=== PATIENT | male | born 1940 | race Caucasian/White ===

== ENCOUNTER 2016-10-02 02:21 | Emergency (ER) | payer BC, MEDICARE ==
--- NOTE | 2016-10-02 02:33 | ED ---
Millicent Pabon Michael, scribed for Robert Sullivan MD on 10/02/16 at 0228 . Adult Trauma - HPI Summary HPI Summary: 76 y/o male was BIBA to the ED after a mechanical fall tonight. The pt reports that he slipped while trying to sit back down in his chair. He c/o neck pain and arrived to the ED in a C-collar. He rates his pain a 2 out of 10 on a pain severity scale. The pt denies LOC. - History of Current Complaint Stated Complaint: NECK PAIN Hx Obtained From: Patient, EMS, Medical Records Mechanism of Injury: Fall Loss of Consciousness: no loss of consciousness Onset/Duration: Started Minutes Ago Onset of Pain: Immediate Onset Severity: Mild Current Severity: Mild Pain Intensity: 2 Pain Scale Used: 0-10 Numeric Location: Neck Aggravating Factor(s): Nothing Alleviating Factor(s): Nothing Associated Signs & Symptoms: Positive: Other: - neck pain. Negative: Loss of Consciousness - Allergy/Home Medications Allergies/Adverse Reactions: Allergies Allergy/AdvReac Type Severity Reaction Status Date / Time Erythromycin Allergy Nausea Verified 10/02/16 02:41 PMH/Surg Hx/FS Hx/Imm Hx Endocrine/Hematology History: Denies: Hx Diabetes Cardiovascular History: Reports: Hx Hypercholesterolemia, Hx Hypertension Denies: Hx Angina, Hx Coronary Artery Disease, Hx Myocardial Infarction, Hx Pacemaker/ICD, Hx Valvular Heart Disease Respiratory History: Denies: Hx Asthma, Hx Chronic Obstructive Pulmonary Disease (COPD) History: Denies: Hx Renal Disease Sensory History: Reports: Hx Hearing Aid - DOESN'T WEAR ALL THE TIME Psychiatric History: Denies: Hx Panic Disorder - Family History Known Family History: Positive: Cardiac Disease - Social History Occupation: Retired Lives: With Family Alcohol Use: Rare Substance Use Type: Reports: None Smoking Status (MU): Never Smoked Tobacco Review of Systems Negative: Fever Positive: Other - neck pain Negative: Syncope All Other Systems Reviewed And Are Negative: Yes Physical Exam Triage Information Reviewed: Yes Vital Signs Reviewed: Yes Appearance: Positive: No Pain Distress Skin: Positive: Warm Head/Face: Positive: Normal Head/Face Inspection Eyes: Positive: MARIA INES ENT: Positive: Hearing grossly normal Neck: Positive: Supple, Nontender Respiratory/Lung Sounds: Positive: Breath Sounds Present Cardiovascular: Positive: RRR Abdomen Description: Positive: Nontender, Soft Bowel Sounds: Positive: Present Neurological: Positive: Alert, Oriented to Person Place, Time Psychiatric: Positive: Affect/Mood Appropriate Diagnostics - Laboratory Result Diagrams: 10/02/16 03:30 10/02/16 03:30 Lab Statement: Any lab studies that have been ordered have been reviewed, and results considered in the medical decision making process. - CT Cervical Spine CT CT Interpretation: No Acute Changes CT Interpretation Completed By: Radiologist - EKG EKG 0303 EKG Rhythm: Sinus Rhythm Ectopy: PVCs EKG Interpretation: LBBB Re-Evaluation - Re-Evaluation 1st Re-Evaluation Time: 03:15 Change: Unchanged Second Eval Re-Evaluation Time: 04:50 - results d/w pt and family, recommend f/u pcp Change: Improved Adult Trauma Course/Dx - Diagnoses Provider Diagnoses: Neck pain Discharge - Discharge Plan Condition: Stable Disposition: HOME Patient Education Materials: Neck Pain (ED) Referrals: Alo Boo MD [Primary Care Provider] - Additional Instructions: You will follow up with Dr. Boo within the next 3-4 days. Please return to the ED if your symptoms worsen. The documentation as recorded by the Millicent thomas Michael accurately reflects the service I personally performed and the decisions made by me, Robert Sullivan MD.
[2016-10-02 03:41] LABS: Hematocrit 48 % (42-52); Hemoglobin 16.2 g/dl (14.0-18.0); Mean Corpuscular HGB Conc 34 g/dl (31-36); Mean Corpuscular Hemoglobin 31 pg (27-31); Mean Corpuscular Volume 91 fL (80-94); Mean Platelet Volume 11 um3 (7.4-10.4); Red Blood Count 5.31 10^6/ul (4.0-5.4); Red Cell Distribution Width 15 % (10.5-15); White Blood Count 10.4 10^3/ul (3.5-10.8)
[2016-10-02 03:43] LABS: Comments Flag Yes
[2016-10-02 03:44] LABS: Add Diff/Slide Review? Slide Review Added
[2016-10-02 03:52] LABS: BUN/Creatinine Ratio 22.9 (8-20); Calcium 9.6 mg/dL (8.6-10.3); EGFR African American 88.6 (>60); EGFR Non-African American 68.9 (>60)
[2016-10-02 04:12] LABS: Magnesium 2.4 mg/dL (1.9-2.7); Potassium 4.3 mmol/L (3.5-5.0)
[2016-10-02 04:57] VITALS: BP 194/90
--- NOTE | 2016-10-02 07:40 | RAD ---
HISTORY: Fall, neck pain COMPARISONS: MRI of the cervical spine dated March 12, 2015 TECHNIQUE: Multiple contiguous axial CT scans were obtained of the cervical spine without intravenous contrast, with coronal and sagittal multiplanar reformations. FINDINGS: BRAIN: The visualized brain is unremarkable CENTRAL CANAL: Evaluation of the central canal is limited on CT technique; however, there is no obvious canalicular mass or epidural hemorrhage. ALIGNMENT: There is straightening of the cervical lordosis. VERTEBRAL BODIES: There is multilevel anterolateral marginal osteophyte formation with sclerotic reactive end plate changes. There is no displaced fracture. JOINTS: There is extensive facet and uncovertebral osteoarthritic change. There is osteoarthritis of the atlantoaxial articulation. MUSCULATURE: Unremarkable INTERVERTEBRAL DISCS: There is diffuse loss of intervertebral disc height. AXIAL IMAGES: C2-C3: There is no osseous neural foraminal narrowing or central canal stenosis. C3-C4: There is severe right-sided and mild left-sided neuroforaminal narrowing secondary to uncovertebral and facet hypertrophy. There is no osseous central canal stenosis. C4-C5: There is bilateral uncovertebral and facet hypertrophy. There is moderate bilateral neuroforaminal narrowing. There is no osseous central canal stenosis. C5-C6: There is a central posterior osteophyte with bilateral uncovertebral facet hypertrophy. There is severe bilateral neural foraminal narrowing. There is moderate narrowing of the central canal. C6-C7: There is a broad-based disc osteophyte complex with bilateral uncovertebral and facet hypertrophy. There is severe bilateral neural foraminal narrowing. There is moderate narrowing of the central canal. C7-T1: There is no osseous neural foraminal narrowing or central canal stenosis. SOFT TISSUES: The visualized soft tissues of the neck are unremarkable. The prevertebral fat stripe is preserved. OTHER: None. IMPRESSION: 1. DEGENERATIVE DISC DISEASE AND OSTEOARTHRITIS. 2. THERE IS MODERATE NARROWING OF THE CENTRAL CANAL AT C5-C6 AND C6-C7. 3. THERE IS MULTILEVEL NEURAL FORAMINAL NARROWING DESCRIBED ABOVE. 4. NO ACUTE OSSEOUS INJURY TO THE CERVICAL SPINE
--- NOTE | 2016-10-02 07:41 | RAD ---
HISTORY: Chest pain COMPARISONS: None VIEWS: 2: Frontal dual-energy and lateral views of the chest. FINDINGS: CARDIOMEDIASTINAL SILHOUETTE: The cardiomediastinal silhouette is normal. [place]: The federica are normal. PLEURA: The costophrenic angles are sharp. No pleural abnormalities are noted. LUNG PARENCHYMA: There is hyperinflation with flattening of the diaphragm and expansion of the AP diameter of the chest. ABDOMEN: The upper abdomen is clear. There is no subphrenic gas. BONES AND SOFT TISSUES: Degenerative changes are noted along the spine. OTHER: None. IMPRESSION: HYPERINFLATION, CONSISTENT WITH COPD. NO ACTIVE CARDIOPULMONARY DISEASE.
== END 2016-10-02 04:39 | disposition home or self-care (01) ==
LOC: ED 02:21
DX: M54.2 Cervicalgia (principal); M50.30 Other cervical disc degeneration, unspecified cervical region
CPT/HCPCS: 36415; 71020; 72125; 80048; 83735; 85025; 93005; 99283

== ENCOUNTER 2016-10-05 13:15 | Inpatient (IN) | payer BC, MEDICARE ==
[2016-10-05 14:22] LABS: Hematocrit 49 % (42-52); Hemoglobin 16.2 g/dl (14.0-18.0); Mean Corpuscular HGB Conc 33 g/dl (31-36); Mean Corpuscular Hemoglobin 30 pg (27-31); Mean Corpuscular Volume 91 fL (80-94); Mean Platelet Volume 11 um3 (7.4-10.4); Red Blood Count 5.34 10^6/ul (4.0-5.4); Red Cell Distribution Width 14 % (10.5-15); White Blood Count 11.1 10^3/ul (3.5-10.8)
[2016-10-05 14:37] LABS: BUN/Creatinine Ratio 23.4 (8-20); Calcium 9.9 mg/dL (8.6-10.3); EGFR African American 86.6 (>60); EGFR Non-African American 67.4 (>60); Globulin 4.3 g/dL (2-4); Magnesium 2.4 mg/dL (1.9-2.7); Potassium 4.1 mmol/L (3.5-5.0); Total Bilirubin 0.6 mg/dL (0.2-1.0); Total Protein 8.3 g/dL (6.4-8.9)
[2016-10-05 14:39] LABS: Troponin I 0.04 ng/mL (<0.04)
--- NOTE | 2016-10-05 14:58 | RAD ---
HISTORY: Weakness, diplopia, inability to walk COMPARISONS: October 02, 2016 VIEWS: 2: Frontal dual-energy and lateral views of the chest. FINDINGS: CARDIOMEDIASTINAL SILHOUETTE: The cardiomediastinal silhouette is normal. [place]: The federica are normal. PLEURA: The costophrenic angles are sharp. No pleural abnormalities are noted. LUNG PARENCHYMA: There is hyperinflation with flattening of the diaphragm and expansion of the AP diameter of the chest. ABDOMEN: The upper abdomen is clear. There is no subphrenic gas. BONES AND SOFT TISSUES: Degenerative changes are noted along the spine. OTHER: None. IMPRESSION: HYPERINFLATION. NO ACTIVE CARDIOPULMONARY DISEASE.
--- NOTE | 2016-10-05 15:10 | ED ---
Francisco Javier Pabon Adam, scribed for Malinda Null MD on 10/05/16 at 1346 . Neurological HPI - HPI Summary HPI Summary: 76 yo male arrived to ED by EMS. complaining of double vision beginning on Monday. Pt with progressive generalized weakness and now using walker. He was here on 10/02 after falling due to difficulty walking and balancing. He received CAT scan of neck and chest X-Ray, but did not have anything fractured, and was discharged. Since then, pt has had difficulty walking and with balance, double vision, and has been using a walker beginning three days ago. His legs and arms feel weak, but no numbness or tingling reported. Additionally, he has neck and shoulder pain after movement. no fevers, chills. Pt states approx 2 weeks ago had 48 hours of nausea and vomiting. This has resolved and not recurred. Pt has been urinating every 15-20 minutes, but feels as if he is emptying his bladder, despite not drinking too much water. Pt denies diarrhea, fever, rashes, nausea, or headache. No bowel incontinence. Pt was at his PCP office and sent to ED for further eval. He has had prostate problems for the past five years and is follwed by Dr. Arroyo. Pt is not on medications. 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 He is not on any medications, no PMHx for stroke or [place], no kidney problems. No SHx, non smoker, non drinker, no drug use. 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 - History of Current Complaint Chief Complaint: EDWeakness Stated Complaint: WEAKNESS Time Seen by Provider: 10/05/16 13:38 Hx Obtained From: Patient, Family/Charge Entry Specialist, Other: - PCP - called from office Onset/Duration: Started days ago Timing: Constant Onset Severity: Moderate Current Severity: Moderate Pain Intensity: 0 Character: Weak - Generalized Weakness, Visual Changes - double vision Alleviating: Rest, Lying Down Associated Signs and Symptoms: Positive: Unsteady Gait, Visual Changes - Double vision with both eyes open. Normal vision in each individual eye., Weakness, Dizziness, Incontinent Bladder/Bowel - Urinates frequently (every 15-30 minutes) , Decreased Oral Intake. Negative: Headache, Numbness, Nausea/Vomiting, Fever, Diarrhea - Allergy/Home Medications Allergies/Adverse Reactions: Allergies Allergy/AdvReac Type Severity Reaction Status Date / Time Erythromycin Allergy Nausea Verified 10/02/16 02:41 Home Medications: Home Medications Aspirin [Aspirtab Maximum Strength] 500 mg PO DAILY 10/05/16 [History Confirmed 10/05/16] PMH/Surg Hx/FS Hx/Imm Hx Previously Healthy: Yes Endocrine/Hematology History: Denies: Hx Anticoagulant Therapy, Hx Diabetes Cardiovascular History: Reports: Hx Hypercholesterolemia, Hx Hypertension Denies: Hx Angina, Hx Coronary Artery Disease, Hx Myocardial Infarction, Hx Pacemaker/ICD, Hx Valvular Heart Disease Respiratory History: Denies: Hx Asthma, Hx Chronic Obstructive Pulmonary Disease (COPD) History: Denies: Hx Renal Disease Sensory History: Reports: Hx Hearing Aid - DOESN'T WEAR ALL THE TIME Psychiatric History: Denies: Hx Panic Disorder - Immunization History Date of Tetanus Vaccine: unk Date of Influenza Vaccine: fall 2015 Infectious Disease History: No Infectious Disease History: Denies: Traveled Outside the [place] in Last 30 Days - Family History Known Family History: Positive: Cardiac Disease - Social History 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 Normal vision in each individual eye. ENT: Negative Cardiovascular: Negative Negative: Chest Pain Respiratory: Negative Negative: Shortness Of Breath, Cough Gastrointestinal: Negative Negative: Diarrhea, Nausea Genitourinary: Negative Positive: frequency - urinating every 15-30 minutes Positive: Myalgia - neck and shoulder pain Negative: Rash Positive: Weakness. Negative: Headache Psychological: Normal All Other Systems Reviewed And Are Negative: Yes Physical Exam Triage Information Reviewed: Yes Vital Signs On Initial Exam: Initial Vitals Temp Pulse Resp BP Pulse Ox 98.4 F 82 18 214/112 95 10/05/16 13:20 10/05/16 13:20 10/05/16 13:20 10/05/16 13:20 10/05/16 13:20 Vital Signs Reviewed: Yes Appearance: Positive: Well-Appearing, No Pain Distress, Well-Nourished Skin: Positive: Warm, Skin Color Reflects Adequate Perfusion, Dry Head/Face: Positive: Normal Head/Face Inspection Eyes: Positive: Normal, EOMI, MARIA INES ENT: Positive: Pharynx normal, TMs normal Neck: Positive: Supple, Nontender, No Lymphadenopathy. Negative: Nuchal Rigidity Respiratory/Lung Sounds: Positive: Clear to Auscultation, Breath Sounds Present. Negative: Rales, Wheezes Cardiovascular: Positive: Normal, RRR. Negative: Murmur Abdomen Description: Positive: Nontender, No Organomegaly, Soft Bowel Sounds: Positive: Present Musculoskeletal: Positive: Normal, Strength/ROM Intact Neurological: Positive: Normal, Sensory/Motor Intact, Alert, Oriented to Person Place, Time Psychiatric: Positive: Normal AVPU Assessment: Alert - [place] Coma Scale Best Eye Response: 4 - Spontaneous Best Motor Response: 6 - Obeys Commands Best Verbal Response: 5 - Oriented Diagnostics - Vital Signs Vital Signs Temp Pulse Resp BP Pulse Ox 10/05/16 13:20 98.4 F 82 18 214/112 95 - Laboratory Lab Results: Lab Results 10/05/16 10/05/16 10/05/16 Range/Units 14:00 14:00 14:00 WBC 11.1 H (3.5-10.8) 10^3/ul RBC 5.34 (4.0-5.4) 10^6/ul Hgb 16.2 (14.0-18.0) g/dl Hct 49 (42-52) % MCV 91 (80-94) fL MCH 30 (27-31) pg MCHC 33 (31-36) g/dl RDW 14 (10.5-15) % Plt Count 157 (150-450) 10^3/ul MPV 11 H (7.4-10.4) um3 Neut % (Auto) 76.0 (38-83) % Lymph % (Auto) 15.7 L (25-47) % [place] % (Auto) 6.2 (1-9) % Eos % (Auto) 0.8 (0-6) % Baso % (Auto) 1.3 (0-2) % Absolute Neuts (auto) 8.5 H (1.5-7.7) 10^3/ul Absolute Lymphs (auto) 1.8 (1.0-4.8) 10^3/ul Absolute Monos (auto) 0.7 (0-0.8) 10^3/ul Absolute Eos (auto) 0.1 (0-0.6) 10^3/ul Absolute Basos (auto) 0.1 (0-0.2) 10^3/ul Absolute Nucleated RBC 0.01 10^3/ul Nucleated RBC % 0.1 Sodium 137 (133-145) mmol/L Potassium 4.1 (3.5-5.0) mmol/L Chloride 103 (101-111) mmol/L Carbon Dioxide 26 (22-32) mmol/L Anion Gap 8 (2-11) mmol/L BUN 25 H (6-24) mg/dL Creatinine 1.07 (0.67-1.17) mg/dL Est GFR ( Amer) 86.6 (>60) Est GFR (Non-Af Amer) 67.4 (>60) BUN/Creatinine Ratio 23.4 H (8-20) Glucose 100 (70-100) mg/dL Lactic Acid 1.3 (0.5-2.0) mmol/L Calcium 9.9 (8.6-10.3) mg/dL Magnesium 2.4 (1.9-2.7) mg/dL Total Bilirubin 0.60 (0.2-1.0) mg/dL AST 32 (13-39) U/L ALT 48 (7-52) U/L Alkaline Phosphatase 56 (34-104) U/L Total Creatine Kinase 50 (10-223) U/L Troponin I 0.04 H* (<0.04) ng/mL Total Protein 8.3 (6.4-8.9) g/dL Albumin 4.0 (3.2-5.2) g/dL Globulin 4.3 H (2-4) g/dL Albumin/Globulin Ratio 0.9 L (1-3) Result Diagrams: 10/06/16 04:46 10/06/16 04:46 Lab Statement: Any lab studies that have been ordered have been reviewed, and results considered in the medical decision making process. - Radiology CXR Radiology Interpretation Completed By: Radiologist - HYPERINFLATION. NO ACTIVE CARDIOPULMONARY DISEASE. - CT BRAIN CT Interpretation Completed By: Radiologist - IMPRESSION: Chronic ischemic White matter change. Lacunar infarct right basal ganglia. - EKG 16:37 Cardiac Rate: NL - 85 BPM EKG Rhythm: Sinus Rhythm - normal Ectopy: PVCs EKG Interpretation: LBBB. 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/Release Non-Paretic Hand: Both Correctly Best Gaze (Only Horizontal Eye Movement): Normal Visual Field Testing: No Visual Loss Facial Paresis-Pt to Smile & Close Eyes or Grimace Symmetry: Normal/Symmetrical Motor Function - Right Arm: No Drift-Holds 10 Seconds Motor Function - Left Arm: No Drift-Holds 10 Seconds Motor Function - Right Leg: No Drift-Holds 10 Seconds Motor Function - Left Leg: No Drift-Holds 10 Seconds Limb Ataxia-Must be out of Proportion to Weakness Present: Absent Sensory (Use Pinprick to Test Arms/Legs/Trunk/Face): Normal Best Language (Describe Picture, Name Items): No Aphasia Dysarthria (Read Several Words): Normal Extinction and Inattention: No Abnormality Total Score: 0 Re-Evaluation - Re-Evaluation First Eval Change: Improved - pt states feels improved s/p yariel (1800 ml) reviewed labs and imaging with pt and . Will admit for further testing and evalution. Pt BP had improved, again increased. Will give labetolol d/w Dr. Feldman Course/Dx - Course Assessment/Plan: Pt presents with progressive weakness and inability to walk, episode of vision changes. Pt with a fall approx 10 days ago. Pt noted to be hypertensive Pt also with frequent urination. doff includes ICH, CVA, CA, CAD, electrolyte changes, UTI. Will get CT head, CXR, urinalysis, ekg, labs. Pt will likely require admission. pt and in agreement - Diagnoses Provider Diagnoses: Urinary retention, Elevated troponin, Weakness, Hypertensive urgency - Physician Notifications Discussed Care of Patient With: 1800 - Dr Feldman accepting inpt Instructed by Provider To: Admit As Inpatient Discharge - Discharge Plan Condition: Stable Disposition: ADMITTED TO [facility] documentation as recorded by the Francisco Javier thomas Adam accurately reflects the service I personally performed and the decisions made by me, Malinda Null MD.
--- NOTE | 2016-10-05 15:12 | RAD ---
Indication: Weakness, diplopia. CT of the brain was performed without IV contrast. Ventricular structures are midline. No midline shift is noted. Central and cortical atrophy is noted. There is no evidence of intracranial mass or hemorrhage. Periventricular lucency consistent with chronic ischemic White matter change is noted. Lacunar infarct in the right basal ganglia is noted. IMPRESSION: Chronic ischemic White matter change. Lacunar infarct right basal ganglia.
[2016-10-05] MEDS ORDERED: Aspirin TAB* 325 MG PO ONE (16:37)
[2016-10-05 17:04] LABS: Urine Bacteria Absent (Absent); Urine Bilirubin Negative (Negative); Urine Glucose Negative (Negative); Urine Nitrite Negative (Negative)
[2016-10-05] MEDS ORDERED: Labetalol IV* 5 MG/ML 20 ML VIAL IV PUSH ONE (17:26)
[2016-10-05] MEDS ORDERED: Acetaminophen TAB* 325 MG PO PRN (18:41)
--- NOTE | 2016-10-05 19:53 | RAD ---
Indication: Right-sided weakness. Duplex Doppler sonography of the carotid arteries was performed. No prior study is available for comparison. Right common carotid artery demonstrates intimal wall thickening. Plaque is noted in the carotid bulb extending into the right internal carotid artery. Peak systolic velocity of the distal right common carotid artery is 72 cm/s. Peak systolic velocity of the right internal carotid artery is 194 cm/s. The ICA/CC ratio is 2.71. Right vertebral artery demonstrates antegrade flow. Left common carotid artery demonstrates no intimal wall thickening. Peak systolic velocity of the distal left common carotid artery is 90 cm/s. Peak systolic velocity of the left internal carotid artery is 156 cm/s. ICA/CC ratio is 1.7. Left vertebral artery demonstrates antegrade flow. IMPRESSION: 50-69% stenosis of both internal carotid arteries.
--- NOTE | 2016-10-05 21:04 | CONSULT ---
Consult Consult: 10/05/16 neurology consult 76 yo RHM, presenting with a panoply of symptoms in the past 10 days or so. About 2 weeks ago he had 2 days of emesis without diarrhea; he presumed this was food poisoning; there was reduced po intake for several more days. He subsequently noted, in no specific order: - Blurry vision denies prasanna diplopia for me (apparently others had elicited such a history), denies ptosis, bulbar or respiratory issues; would read by closing right eye (unclear why, as self eye cover uncover testing did not help) - Decreased hearing on left - if sleeping right side down - Decreased touch right foot - only noted when was touching his feet - Diffuse bilateral arm and more so leg weakness, mostly noted due to decreased exercise tolerance - He had no specific bowel or bladder complaints, but then said the [place] made him feel better - His suggests slurred speech; he did not endorse this himself per se He was in the ED 3 days ago for a mechanical fall; had imaging as below and was discharged. He has used a cane in the past year, but until a few weeks ago was walking mi per day. He was seen by neurosurgery in 2014 for leg weakness and/or numbness noted after a fall, had allan spine imaging as below, and was conservatively managed, best I can tell with no clear diagnosis. 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 , no etoh or tobacco use ROS 10 point review as per HPI, otherwise negative Vitals per emr general Examination: no apparent distress, trace pitting foot edema, male of stated age; sal[place] in place; redundant eyelid folds Neurologic Examination Mental Status: alert and oriented; affect reactive, no clear neglect, fluent speech Cranial Nerves: Funduscopy deferred, otherwise II-XII intact; león full to confrontation; PERRL, no ptosis or diplopia, EOM full; eye closure, cheek puff and lip closure intact Motor: normal bulk, tone and power; neck flexors intact; no fatiguable weakness ; no drift or tremor Sensory: touch intact; vibration ? decreased right foot only Reflexes: 2 arms and knees; ankles absent. Plantar responses are equivocal/ rapid withdrawal right vs flexor left Coordination: finger to nose is accurate Gait: deferred Serologies: - CBC, chem, lactate, LFTs, ua are all normal or negative - Priors: ESR, iron studies, A1AT, CEA, HCG, Lyme, CMV, HBV/HCV (all in 2013) were all nl/neg Imaging: - Head CT reviewed and negative (age indeterminate and likely remote R basal ganglia lacune) - CUS 50-69% bilateral stenosis - 09/[address] neg fracture; has multi level djd - 02/25 allan spine mri had moderate C5-7 stenosis (penty of csf all way around on my review); L4-5 stenosis; tiny low cervical central syrinx (vs dilated canal to my review) Cxr neg (CT chest 1999 neg as well) Impression: 76 year old presenting with variegated and as a whole not well localizing symptoms, including blurry vision, diffuse weakness vs fatigue, ? speech changes , etc., noted after a GI likely viral ailment 2 weeks ago. His neuro exam is non localizing save questionable right foot sensory asymmetry; he has no hard lateralizing or UMN findings, nor any neuromuscular findings to support an acute PNS process that could explain some of his concerns (eg myasthenia, Carreon Almendarez variant GBS). His symptoms may reflect bland deconditioning in an older and overweight patient. His CT, CUS (modest sub surgical stenosis) and recent cervical and more remote allan spine imaging are all non localizing. I found him in the MRI scanner, in the midst of workup at the behest of the med team for [employer] vascular disease. It is unclear that he has had a stroke, or where to localize his concerns as a whole. We will complete this workup; it may likely be negative and serve a reassuring function, as both he and his are already referring to various symptoms as stroke induced. Additionally, lets send AchR Ab to eval for MG, which could cause visual and diffuse or symmetric motor symptoms, albeit none reproducible.
--- NOTE | 2016-10-05 21:10 | HP ---
HOSPITAL MEDICINE HISTORY AND PHYSICAL: DATE OF ADMISSION: 10/05/16 PRIMARY CARE PHYSICIAN: Dr. Boo. ATTENDING PHYSICIAN: Sree Null MD *(dictation provided by Nessa Landon NP) . CHIEF COMPLAINT: Generalized weakness, double vision, and urinary retention. HISTORY OF PRESENT ILLNESS: Mr. Kamara is a 76-year-old male with a past medical history of BPH and hypertension, who presents today with multiple complaints. He and his report that he first became ill on 09/21/16 with vomiting that lasted approximately 2-1/2 days. There was no diarrhea. There was no other symptoms and it was suspected that likely he had gastroenteritis or food poisoning. The vomiting resolved spontaneously after approximately 2-1/ 2 days; however, the patient has not returned to his baseline health. Prior to this, he had been ambulating at least half a mile a day for exercise. Since 03/30, he has been very weak. He has had poor appetite. On 09/26/16, the patient's obtained a walker for him because he was having some difficulty getting around. It was at that time that they first noticed that he had some speech impairment with a little bit of slurring. He also complained of some double vision. He was seen in our emergency room on 10/02/16 after falling at home. He had imaging studies including CT of the neck and a chest x- ray, but there was no fracture or injury identified and he was discharged to home. He does have continued pain in his neck and in his left shoulder since the fall. In the setting of this, he had been noting that he has been urinating frequently but had been feeling that he was not completely emptying his bladder. Though he has felt weak, he denies any numbness or tingling. There seemed to be no focal weakness. His son felt that there was some nasolabial fold flattening noted on the right. Throughout the course of the illness, there has been no fevers, no chills, no abdominal pain, no diarrhea. Mr. Kamara reports that approximately 2 years ago that he had an episode where he collapsed and "couldn't move his legs." He was seen in consultation by Neurology and during that time he had workup including a lumbar spine MRI, cervical spine MRI, and thoracic spine MRI that showed no acute abnormality. Per the report from the patient and his , it was felt that his symptoms were due to an abnormal walking pattern in which he was leaning heavily on to his right side, perhaps causing some pinching of nerves in the back and thereby leading to further difficulty walking. I would have to refer you to that documentation from the neurologist's office for complete details as that is all that could be provided by the family today. In the emergency room, Mr. Kamara had a CT of the brain, which showed a right lacunar basal ganglia infarct. His labs showed WBC of 11.1, troponin 0.04, but were otherwise unremarkable. His flu swab was negative. His chest x-ray was negative. EKG showed sinus rhythm with no evidence of ischemia. Based on Mr. Kamara' presentation with multiple complaints including double vision, weakness, urinary retention (now status post Fisher placement for 2 L of urine output) and new strokes found on CT of brain, Hospital Medicine was called regarding admission. PAST MEDICAL HISTORY: 1. BPH. 2. Hypertension. MEDICATIONS: The patient states that he had been prescribed amlodipine but went off this 2 years ago secondary to side effects, lethargy, and nausea. He has not been on any prescription medications. ALLERGIES: To ERYTHROMYCIN. FAMILY HISTORY: Mother at 99 related to breast cancer. Father related to pacemaker complications in his 60s. SOCIAL HISTORY: No report of alcohol, tobacco, or drug use. The patient lives with his . She is his healthcare proxy. REVIEW OF SYSTEMS: A 14-point review of systems was completed with Mr. Kamara and all those not mentioned above are negative. PHYSICAL EXAMINATION GENERAL: Mr. Kamara is sitting in the bed. He shows discomfort and will not turn his head to the left, which he says has been a problem for him since he fell approximately 3 days ago. VITAL SIGNS: Blood pressure 186/138, heart rate 89, temperature 98.4, respiratory rate 19, O2 saturation 95% on room air. ABDOMEN: Soft, nontender with bowel sounds positive x4. EXTREMITIES: There is some question of a left pronator drift; however, both right and left upper extremities are strong. He has good strength in both right and left lower extremities. No cyanosis or edema. NEUROLOGIC: He is alert. He is oriented x3. He has some slurring of his speech, which the family and the patient report is new. His pupils are equal and reactive. His right eye seems to remain closed. Unless coaxed and given direct command to open, this eye will remain closed on examination. I am not really able to appreciate a nasolabial fold flattening. The patient does have a higgins. SKIN: Intact. DIAGNOSTIC STUDIES/LAB DATA: Influenza swab is negative. WBC 11.1, hemoglobin 16.2, hematocrit 49, platelet count 157. Sodium 137, potassium 4.1, chloride 103, serum bicarbonate 26, BUN 25, creatinine 1.07, glucose 100, lactic acid 1.3, troponin 0.04. Urine shows no evidence of infection. CT of brain shows a lacunar infarct of the right basal ganglia. Chest x-ray is negative. ASSESSMENT: Mr. Kamara is a 76-year-old male with past medical history of hypertension, benign prostatic hypertrophy, who presents today to the hospital with multiple complaints including weakness, diplopia, and urinary retention. Our plan is for inpatient admission to the hospital, I expect his length of stay to be greater than 2 days with the followin. Urinary retention: The patient has had a Fisher placed in the emergency room for 2 L of urine output. I counseled the family that the patient will need to go home with a Fisher catheter and follow up with Urology outpatient. 2. Weakness, double vision, slurred speech: The patient's symptoms are not entirely consistent with stroke. Plans are for Neurology consultation and I appreciate their support. The patient will have a brain MRI. I have ordered a stroke workup including carotid ultrasound, transthoracic echocardiogram, telemetry monitoring, aspirin, fasting lipid profile, hemoglobin A1c. I plan to allow for permissive hypertension, but will treat the blood pressure greater than 185 until the concern for acute stroke is allayed. 3. Hypertension: The patient states that he is not taking blood pressure medications at home and I suspect that his blood pressure is quite uncontrolled. For now, I plan to use hydralazine p.r.n. but will need to add alternate agents likely starting by tomorrow orally. 4. DVT prophylaxis: Heparin subcu. 5. Disposition: To telemetry. TIME SPENT: Approximately 70 minutes was spent in the admission of this patient , more than half of the time was spent with the patient at the bedside reviewing the events leading up to this hospitalization, performing the physical examination, and reviewing the plan of care. NESSA LANDON NP CC: Dr. Boo * [id number]/[facility] #: [id number] UMER
--- NOTE | 2016-10-05 21:41 | RAD ---
Indication: Stroke. Image sequences: Sagittal and axial T1, axial T2, FLAIR, diffusion and susceptibility weighted images of the brain were obtained. Due to patient positioning of the typical head coil could not be used and there is signal loss in the anterior brain. Ventricular structures are midline. No midline shift is noted. The extra-axial spaces are prominent. There is restriction of diffusion involving the right cerebellar peduncle as well as multiple areas in the right cerebellar hemisphere consistent with acute infarct. No other areas of restriction of diffusion is noted. No midline shift is noted. Paranasal sinuses are otherwise unremarkable. Mastoid air cells are unremarkable. IMPRESSION: Restriction of diffusion in the right brainstem in the right cerebellar peduncle, multiple acute lacunar infarcts in the right cerebellar hemisphere. Age-appropriate atrophy.
[2016-10-05] MEDS: Heparin VIAL(*) 5000 UNITS/ML VIAL (FIVE THOUSAND) SUBCUT SCH (22:16)
[2016-10-06] MEDS: Heparin VIAL(*) 5000 UNITS/ML VIAL (FIVE THOUSAND) SUBCUT SCH ×3 (05:04→20:57)
[2016-10-06 05:25] LABS: Hematocrit 46 % (42-52); Hemoglobin 15.5 g/dl (14.0-18.0); Mean Corpuscular HGB Conc 34 g/dl (31-36); Mean Corpuscular Hemoglobin 31 pg (27-31); Mean Corpuscular Volume 91 fL (80-94); Mean Platelet Volume 11 um3 (7.4-10.4); Red Blood Count 5.08 10^6/ul (4.0-5.4); Red Cell Distribution Width 14 % (10.5-15); White Blood Count 11.5 10^3/ul (3.5-10.8)
[2016-10-06 05:35] LABS: BUN/Creatinine Ratio 24.8 (8-20); Calcium 9.4 mg/dL (8.6-10.3); EGFR African American 92.6 (>60); Potassium 3.8 mmol/L (3.5-5.0)
[2016-10-06] MEDS ORDERED: Iohexol 350* (CONTRAST) 500 ML MDV IV ONE (08:40)
[2016-10-06 08:42] LABS: HDL Cholesterol 26.1 mg/dL
[2016-10-06] MEDS ORDERED: Aspirin TAB* 325 MG PO SCH (09:00)
--- NOTE | 2016-10-06 10:00 | PN ---
Progress Note - Progress Note SOAP: 10/06/16 neurology follow up 76 yo RHM, HTN, HL (no meds), on full ASA baseline, presenting with a number of symptoms in the past 10 plus days, including resolved isolated emesis, blurry vision, decreased hearing (but per notes has hearing aides), decreased touch right foot, diffuse weakness, slurred speech; some of these were more evident to his in review yest. Overnight, no events. This am he brings up yet other more subacute symptoms eg 3-4 weeks ago transiently impaired and isolated depth perception issues. Exam with intact strength, right toe ? up, mild R finger nose finger dysmetria; transient side by side diplopia on far left lateral gaze, without clear eye movement restriction or dyscongugate gaze, and just several beats of left horizontal nystagmus. Not ambulated; saldivar in place. Mri reviewed and has late acute (dark on adc but can see on T2/FLAIR as well) several foci of right cerebellar stroke, as well as a region in the right cerebellar peduncle. No blood. Supratentorially just modest expected for age white matter disease. Chem ok; wbc stable at 11; aic neg; LDL 133 Impression: 76 year old with several vascular risk factors (likely unctreated HTN and HL), presenting with multiple subacute symptoms as above; his imaging may correlate with some of his symptoms (eg slurred speech, possibly visual symptoms) but other concerns may be true true unrelated (eg diffusely feeling weak and antecedent isolated emesis was more likely viral ailment related). We can defer on MG lab testing. Although the management of his small strokes will likely be medical, the plan is for: 1. CTA head and neck with attention to right vert and PICA 2. TTE with bubble study 3. tele 4. Presuming ASA failure, transition to Plavix, unless workup finds a rationale for anticoag 5. start statin 6. d/w dr Gutierrez
--- NOTE | 2016-10-06 11:46 | RAD ---
HISTORY: Posterior sacculation stroke COMPARISONS: MRI dated October 05, 2016 TECHNIQUE: Multiple contiguous axial CT scans were obtained of the head and neck After the administration of nonionic intravenous contrast timed to the systemic arterial phase of contrast enhancement. Coronal and sagittal multiplanar reformations are submitted for review. Multiple 3-D maximum intensity projection reconstructions are also submitted for review. FINDINGS: CTA NECK: AORTIC ARCH: There is calcific atherosclerotic disease of the aortic arch. There is moderate stenosis of the proximal left subclavian artery.. There is a normal three-vessel branching pattern. RIGHT VERTEBRAL ARTERY: The right vertebral artery is patent along its course, without stenosis. LEFT VERTEBRAL ARTERY: There is irregularity with decreased luminal caliber of the proximal left vertebral artery extending to the V3-V4 junction, with occlusion of the distal left vertebral artery DOMINANCE: The right vertebral artery is dominant. RIGHT COMMON CAROTID ARTERY: The right common carotid artery is patent. The right carotid bifurcation occurs at C3-C4 RIGHT INTERNAL CAROTID ARTERY: There is calcified and noncalcified eccentric atherosclerotic plaque of the proximal right internal carotid artery, resulting in approximately 70% stenosis of the right internal carotid artery by NASCET criteria. The cervical right internal carotid artery is tortuous. RIGHT EXTERNAL CAROTID ARTERY: The right external carotid artery is unremarkable. LEFT COMMON CAROTID ARTERY: The left common carotid artery is patent. The left carotid bifurcation occurs at C3-C4 LEFT INTERNAL CAROTID ARTERY: There is atheromatous disease of the left carotid bifurcation, without left internal carotid artery stenosis by NASCET criteria. LEFT EXTERNAL CAROTID ARTERY: The left external carotid artery is unremarkable. VENOUS CIRCULATION: The venous system is unremarkable. SALIVARY GLANDS: The parotid glands, submandibular glands, sublingual glands are normal. NASAL CAVITY/NASOPHARYNX: The nasal cavity and nasopharynx are normal. ORAL CAVITY/OROPHARYNX: The oral cavity is obscured by streak artifact from dental amalgam. The visualized oral cavity and oropharynx are unremarkable. LARYNGEAL APPARATUS/HYPOPHARYNX: The laryngeal apparatus and hypopharynx are normal. UPPER AIRWAY/UPPER ESOPHAGUS: The visualized upper airway and esophagus are normal. LUNG APICES: The lung apices are clear. THYROID GLAND: The thyroid gland is normal. LYMPH NODES: There is no lymphadenopathy by size criteria. BONES AND SOFT TISSUES: Degenerative changes are noted of the spine CTA HEAD: INTRACRANIAL CIRCULATION: There is mural irregularity of the cavernous segments of internal carotid arteries bilaterally. There is mild narrowing of the mid third of the basilar artery. The distal left vertebral artery is occluded as right above. The right posterior inferior cerebral artery is patent. The left posterior inferior cerebellar artery appears to be fed by the left anterior inferior cerebellar trunk The anterior communicating artery complex is clear. Bilateral posterior communicating arteries are identified. VENOUS CIRCULATION: The venous system is unremarkable. PERFUSION: There is no obvious parenchymal perfusion deficit. HEMORRHAGE/INFARCT: There is hypoattenuation of the base and corresponding to the infarct noted on CT. There is no hemorrhage. MASSES/SHIFT: There is no mass or shift. EXTRA-AXIAL SPACES: There are no extra-axial fluid collections. SULCI AND VENTRICLES: The sulci and ventricles are normal in size and position for the patient's stated age. CEREBRUM: There is hypoattenuation of the periventricular and subcortical white matter. BRAINSTEM: There is focal hypoattenuation of the right middle cerebellar peduncle corresponding to the infarct noted on CT. CEREBELLUM: There are no focal parenchymal abnormalities. PARANASAL SINUSES: The paranasal sinuses are clear. ORBITS: The orbits are unremarkable. BONES AND SOFT TISSUE: No bone or soft tissue abnormalities are noted. OTHER: There is no abnormal enhancement. IMPRESSION: 1. ATHEROMATOUS DISEASE. 2. THERE IS APPROXIMATELY 70% STENOSIS OF THE PROXIMAL RIGHT INTERNAL CAROTID ARTERY BY NASCET CRITERIA. 3. THERE IS NO LEFT INTERNAL CAROTID ARTERY STENOSIS BY NASCET CRITERIA. 4. THERE IS DIFFUSE NARROWING OF THE CALIBER OF LEFT RENAL ARTERY, WITH OCCLUSION OF THE DISTAL LEFT VERTEBRAL ARTERY. 5. THERE IS MURAL IRREGULARITY OF THE INTRACRANIAL ARTERIAL TREE SUGGESTIVE OF INTRACRANIAL ATHEROSCLEROSIS. THERE IS MILD NARROWING OF THE MID THIRD OF THE BASILAR ARTERY CPT II Codes: 3100F
[2016-10-06] MEDS: hydrALAZINE IV* 20 MG/ML VIAL IV SLOW PU PRN (12:05)
--- NOTE | 2016-10-06 12:52 | RAD ---
STUDY: CT angiography of the chest, abdomen and pelvis. INDICATION: Reduced left upper extremity blood pressure at relative to the right in a patient recently diagnosed with CVA COMPARISON: Carotid ultrasound dated October 05, 2016 that demonstrates questionable bidirectional flow in the right vertebral artery. TECHNIQUE: Multidetector CT angiography of the chest, abdomen and pelvis were obtained from the lung apices to the ischial tuberosities after the intravenous injection of 100 mL Omnipaque 350. Reformats were created in the coronal and sagittal planes. 3-D vascular imaging was created from the source images and reviewed as well. ANGIOGRAPHIC FINDINGS: The heart is normal in size. There is no pericardial effusion. There is calcification at the aortic arch and coronary artery calcifications. There is no pathologic dilatation of the thoracic aorta. There is mostly noncalcified and circumferential atherosclerotic plaque of the proximal most portion of the right brachiocephalic artery but this does not appear to cause any significant stenosis. There is mostly noncalcified atherosclerosis at the proximal left subclavian artery causing at least 50% degree stenosis of the artery (axial image 32 of 302, coronal image 59 of 131 and sagittal image 101 of 194). The lower thoracic and abdominal aorta exhibits ectatic curvature and mixed attenuation circumferential atherosclerosis, but there is no significant focal aneurysmal dilatation or appearance of acute dissection. On the sagittal view images there is mild to moderate narrowing at the origin of the celiac trunk while the superior mesenteric artery appears to be adequately patent. The inferior mesenteric artery appears to be adequately patent as well. Mixed attenuation atherosclerosis narrows the origins of the main renal arteries to a mild to moderate degree. Mixed attenuation atherosclerosis of the lower abdominal aorta continues into the bilateral common iliac arteries where the mostly noncalcified atherosclerosis becomes more eccentric and appears to cause high-grade stenoses. The right common iliac artery (image 178) appears to be narrowed at least 50% while the left common iliac artery exhibits approximately 80% degree stenosis (image 180). Distal to these common iliac stenoses there is adequate filling of the bilateral external iliac arteries. There is mixed attenuation stenosis at the origin of the bilateral internal iliac arteries. Patency appears to be maintained. There is mixed attenuation atherosclerosis at the bilateral common femoral arteries but this does not appear to cause significant stenosis. At the proximal portion of the right superficial femoral artery eccentric soft plaque causes high-grade stenosis of the artery (image 254). NON ANGIOGRAPHIC FINDINGS: Chest: The lungs exhibit diffuse centrilobular emphysematous changes. Otherwise the lungs are clear. There are no large pleural effusions. There is no mediastinal or hilar lymphadenopathy. The heart is grossly normal in appearance. Abdomen \T\ Pelvis: The liver is homogenously hypodense without focal suspicious mass or other irregularity. The spleen, pancreas and adrenal glands are grossly normal in appearance. In the dependent portion of the gallbladder there is hyperdense material most likely representing stones. There is no evidence of biliary duct occlusion. The kidneys are normal in appearance without focal mass, calcification or signs of hydronephrosis. The renal cortices enhance promptly and symmetrically on arterial phase imaging. A Fisher catheter is seen in the mostly decompressed urinary bladder. This creates the appearance of decompression which is not considered a reliable the presence of a catheter. The small and large bowel are not distended. The appendix is normal in appearance (image 205). There is no gross retroperitoneal or mesenteric lymphadenopathy. Bilateral fat-containing inguinal hernias are noted. Scattered coarse calcifications are seen in the enlarged prostate measuring 5.4 x 7.1 cm in the axial plane. Similar to prior MRI imaging, there is mild S shaped curvature of the lower thoracic and lumbar spine in the AP view. On the sagittal view images there is multilevel degenerative changes include loss of intervertebral disc height, exuberant marginal osteophyte formation and lumbar level vacuum disc phenomenon.There are no sinister bone lesions. IMPRESSION: 1. Widespread mixed attenuation atherosclerosis as described in detail in the body of the report. The more severe and/or clinically relevant findings are as follows: * There is no evidence of pathologic aneurysmal dilatation of the aorta or acute aortic dissection. * There is concentric atheroma at the origin of the right brachiocephalic artery which does not cause any significant stenosis. * There is high-grade stenosis at the proximal left subclavian artery due to mostly noncalcified atheroma. This appearance would account for reduced blood pressure acquired in the left upper extremity relative to the right. Please correlate to signs and symptoms of subclavian steal syndrome. * Mostly noncalcified eccentric atheroma narrows the bilateral common iliac arteries approximately 50% on the right and up to 80% in the left. These correlate to signs and symptoms of pelvic and lower extremity claudication. * Focus of high-grade stenosis in the superior portion of the right superficial femoral artery which potentially could cause right lower extremity claudication. 2. Likely hepatic steatosis. 3. Appearance of thickened and nodular urinary bladder wall which is likely the consequence of decompression caused by the patient's Fisher catheter. Please correlate to any signs and symptoms of urinary bladder pathology including hematuria. 4. There are additional chronic and degenerative changes described in the body of the report.
[2016-10-06] MEDS: Clopidogrel TAB* 75 MG PO SCH (13:10)
--- NOTE | 2016-10-06 15:35 | PN ---
Progress Note - Progress Note SOAP: 10/06/16 neurology follow up - addendum 76 yo RHM, HTN, HL (no meds), on full ASA baseline, presenting with a number of symptoms as per prior notes, mri w/ several small R cerebellar strokes. CTA head and neck reviewed has some R ICA incidental stenosis in neck (rads estimates at 70% vs 50-69% per CUS yest); more importantly he is R vert dominant with an intact R vert and basilar; the L vert is quite small and irregular throughout its course (likely congenitally smaller plus atherosclerosis), with possible distal occlusion this is presumably asymptomatic as well, ie does not change med mgmt recs per note from this am. Echo pending. Primary team also obtained CTA chest, abd and pelvis after noting BP discrepancy between arms has various findings, with fatty liver and L subclavian stenosis. Will sign out to dr newman (starting call tmrw) to follow up other pending tests.[]
[2016-10-06] MEDS ORDERED: Perflutren Lipid Microsphere* 1.1 MG/ML VIAL IV ONE (16:00)
[2016-10-06] MEDS: Atorvastatin* 40 MG TAB PO SCH (16:30)
[2016-10-06] MEDS: amLODIPine TAB* 5 MG PO SCH (16:30)
--- NOTE | 2016-10-06 17:24 | PN ---
Subjective Date of Service: 10/06/16 Interval History: HOSPITALIST PROGRESS NOTE Patient seen and examined at bedside. He feels a little better today. Blurry vision is less intense, still feels he has some speech difficulties. He denies LUE claudication or other symptoms of subclavian steal. Also denies LE claudication, but did not walk long distances. Family History: Unchanged from Admission Social History: Unchanged from Admission Past Medical History: Unchanged from Admission Objective Active Medications: Acetaminophen (Tylenol Tab*) 650 mg PO Q6H PRN PRN Reason: PAIN Amlodipine Besylate (Norvasc Tab*) 2.5 mg PO DAILY [facility] Last Admin: 10/06/16 16:30 Dose: 2.5 mg Atorvastatin Calcium (Lipitor*) 40 mg PO 1700 [facility] Last Admin: 10/06/16 16:30 Dose: 40 mg Clopidogrel Bisulfate (Plavix Tab*) 75 mg PO DAILY [facility] Last Admin: 10/06/16 13:10 Dose: 75 mg Heparin Sodium (Porcine) (Heparin Vial(*)) 5,000 units SUBCUT Q8HR [facility] Last Admin: 10/06/16 13:10 Dose: 5,000 units Hydralazine HCl (Apresoline Iv*) 5 mg IV SLOW PU Q6H PRN PRN Reason: SBP > 185 Last Admin: 10/06/16 12:05 Dose: 5 mg Vital Signs 10/06/16 10/06/16 10/06/16 11:37 13:21 16:35 Temperature 98.2 F 98.3 F Pulse Rate 74 83 76 Respiratory 16 16 Rate Blood Pressure 194/93 173/85 179/88 (mmHg) O2 Sat by Pulse 96 96 Oximetry Oxygen Devices in Use Now: None Appearance: Pleasant elderly male sitting up in a chair in [facility]. Eyes: No Scleral Icterus Ears/Nose/Mouth/Throat: Mucous Membranes Moist Neck: Trachea Midline Respiratory: Symmetrical Chest Expansion and Respiratory Effort, Clear to Auscultation Cardiovascular: RRR - Normal S1 and S2 Neurological: Alert and Oriented x 3, NL Muscle Strength and Tone, - - Mild R finger to nose dysmetria Lines/Tubes/Other Access: Clean, Dry and Intact Peripheral IV Nutrition: Taking PO's Result Diagrams: 10/06/16 04:46 10/06/16 04:46 Assess/Plan/Problems-Billing Assessment: Mr. Kamara is a 76yo M with PMH of untreated HTN, obesity, BPH, who presented to ED with c/o weakness, slurred speech, blurry vision, found to have uncontrolled HTN and right cerebellar CVA. - Patient Problems (1) CVA (cerebral vascular accident) Comment: - MRI brain showed restriction of difusion on in the right brainstem in the right cerebellar pedunculum, multiple acute lacunar infarcts in the right cerebellar hemisphere. - He has multiple vascular risk factors including HTN and HLD. - CTA head/neck showed right ICA stenosis (incidental). Right vertebral and basilar are intact. - Echocardiogram pending. - No significant arrhythmias on Telemetry so far. - Neuro input appreciated - continue Plavix, Atorvastatin. - Continue Neuro checks. - Continue PT/OT/ST. 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 - Took lisinopril, HCTZ, amlodipine in the past and they were discontinued due to side effects (usually dizziness). Off treatment for 2 years. - Agrees to start low dose Amlodipine again. (3) Hyperlipidemia Comment: - LDL 133 - will start Atorvastatin. Risks and benefits reviewed with patient and and they're in agreement. (4) Subclavian artery stenosis, left Comment: - BP measured on right arm was significantly higher then on left. - CTA chest/abd/pelvis showed 50% stenosis on left subclavian - patient denies any symptoms related to it. - Study also showed bilateral iliac stenosis (50% on the right, 80% on the left) , but he also denies LE claudication. - D/w Dr. Trinh - plan for evaluation as outpatient. - Continue Plavix and Atorvastatin. (5) Urinary retention Comment: - Likely secondary to BPH. - Continue Fisher. - Start Flomax. (6) DVT prophylaxis Comment: - SQ heparin. (7) Full code status Status and Disposition: Inpatient.
[2016-10-06] MEDS: Tamsulosin CAP* 0.4 MG PO SCH (20:57)
[2016-10-07] MEDS: Heparin VIAL(*) 5000 UNITS/ML VIAL (FIVE THOUSAND) SUBCUT SCH ×3 (05:52→20:51)
[2016-10-07] MEDS: Clopidogrel TAB* 75 MG PO SCH (08:48)
[2016-10-07] MEDS: amLODIPine TAB* 5 MG PO SCH (08:48)
--- NOTE | 2016-10-07 12:14 | PN ---
Progress Note - Progress Note SOAP: Neurology progress note Date of service: 10/07/16 Subjective: No acute events overnight. The patient states he is in a very good spirit and feeling much better today. Still has diplopia Objective: Vital Signs Temp Pulse Resp BP Pulse Ox 97.9 F 81 16 164/86 94 10/07/16 11:28 10/07/16 11:28 10/07/16 11:28 10/07/16 11:28 10/07/16 11:28 Laboratory Last Values WBC 11.5 10^3/ul (3.5-10.8) H 10/06/16 04:46 RBC 5.08 10^6/ul (4.0-5.4) 10/06/16 04:46 Hgb 15.5 g/dl (14.0-18.0) 10/06/16 04:46 Hct 46 % (42-52) 10/06/16 04:46 MCV 91 fL (80-94) 10/06/16 04:46 MCH 31 pg (27-31) 10/06/16 04:46 MCHC 34 g/dl (31-36) 10/06/16 04:46 RDW 14 % (10.5-15) 10/06/16 04:46 Plt Count 147 10^3/ul (150-450) L 10/06/16 04:46 MPV 11 um3 (7.4-10.4) H 10/06/16 04:46 Neut % (Auto) 70.6 % (38-83) 10/06/16 04:46 Lymph % (Auto) 20.4 % (25-47) L 10/06/16 04:46 Blount % (Auto) 6.3 % (1-9) 10/06/16 04:46 Eos % (Auto) 1.5 % (0-6) 10/06/16 04:46 Baso % (Auto) 1.2 % (0-2) 10/06/16 04:46 Absolute Neuts (auto) 8.1 10^3/ul (1.5-7.7) H 10/06/16 04:46 Absolute Lymphs (auto) 2.4 10^3/ul (1.0-4.8) 10/06/16 04:46 Absolute Monos (auto) 0.7 10^3/ul (0-0.8) 10/06/16 04:46 Absolute Eos (auto) 0.2 10^3/ul (0-0.6) 10/06/16 04:46 Absolute Basos (auto) 0.1 10^3/ul (0-0.2) 10/06/16 04:46 Absolute Nucleated RBC 0 10^3/ul 10/06/16 04:46 Nucleated RBC % 0 10/06/16 04:46 Sodium 136 mmol/L (133-145) 10/06/16 04:46 Potassium 3.8 mmol/L (3.5-5.0) 10/06/16 04:46 Chloride 104 mmol/L (101-111) 10/06/16 04:46 Carbon Dioxide 26 mmol/L (22-32) 10/06/16 04:46 Anion Gap 6 mmol/L (2-11) 10/06/16 04:46 BUN 25 mg/dL (6-24) H 10/06/16 04:46 Creatinine 1.01 mg/dL (0.67-1.17) 10/06/16 04:46 Est GFR ( Amer) 92.6 (>60) 10/06/16 04:46 Est GFR (Non-Af Amer) 72.0 (>60) 10/06/16 04:46 BUN/Creatinine Ratio 24.8 (8-20) H 10/06/16 04:46 Glucose 93 mg/dL (70-100) 10/06/16 04:46 Hemoglobin A1c 5.7 % (Less than 6.0) 10/05/16 14:00 Lactic Acid 1.3 mmol/L (0.5-2.0) 10/05/16 14:00 Calcium 9.4 mg/dL (8.6-10.3) 10/06/16 04:46 Magnesium 2.4 mg/dL (1.9-2.7) 10/05/16 14:00 Total Bilirubin 0.60 mg/dL (0.2-1.0) 10/05/16 14:00 AST 32 U/L (13-39) 10/05/16 14:00 ALT 48 U/L (7-52) 10/05/16 14:00 Alkaline Phosphatase 56 U/L (34-104) 10/05/16 14:00 Total Creatine Kinase 50 U/L (10-223) 10/05/16 14:00 Troponin I 0.05 ng/mL (<0.04) H* 10/05/16 23:35 Total Protein 8.3 g/dL (6.4-8.9) 10/05/16 14:00 Albumin 4.0 g/dL (3.2-5.2) 10/05/16 14:00 Globulin 4.3 g/dL (2-4) H 10/05/16 14:00 Albumin/Globulin Ratio 0.9 (1-3) L 10/05/16 14:00 Triglycerides 137 mg/dL 10/06/16 04:46 Cholesterol 186 mg/dL 10/06/16 04:46 LDL Cholesterol 133 mg/dL 10/06/16 04:46 HDL Cholesterol 26.1 mg/dL 10/06/16 04:46 Urine Color Yellow 10/05/16 16:15 Urine Appearance Clear 10/05/16 16:15 Urine pH 5.0 (5-9) 10/05/16 16:15 Ur Specific [place] 1.020 (1.010-1.030) 10/05/16 16:15 Urine Protein Negative (Negative) 10/05/16 16:15 Urine Ketones Trace (Negative) H 10/05/16 16:15 Urine Blood 1+ (Negative) H 10/05/16 16:15 Urine Nitrate Negative (Negative) 10/05/16 16:15 Urine Bilirubin Negative (Negative) 10/05/16 16:15 Urine Urobilinogen Negative (Negative) 10/05/16 16:15 Ur Leukocyte Esterase Negative (Negative) 10/05/16 16:15 Urine WBC (Auto) Trace(0-5/hpf) (Absent) 10/05/16 16:15 Urine RBC (Auto) Trace(0-2/hpf) (Absent) 10/05/16 16:15 Urine Bacteria Absent (Absent) 10/05/16 16:15 Urine Glucose Negative (Negative) 10/05/16 16:15 Influenza A (Rapid) Negative (Negative) 10/05/16 17:27 Influenza B (Rapid) Negative (Negative) 10/05/16 17:27 Current Medications Acetaminophen (Tylenol Tab*) 650 mg PO Q6H PRN PRN Reason: PAIN Amlodipine Besylate (Norvasc Tab*) 2.5 mg PO DAILY [facility] Last Admin: 10/07/16 08:48 Dose: 2.5 mg Atorvastatin Calcium (Lipitor*) 40 mg PO 1700 [facility] Last Admin: 10/06/16 16:30 Dose: 40 mg Clopidogrel Bisulfate (Plavix Tab*) 75 mg PO DAILY [facility] Last Admin: 10/07/16 08:48 Dose: 75 mg Heparin Sodium (Porcine) (Heparin Vial(*)) 5,000 units SUBCUT Q8HR [facility] Last Admin: 10/07/16 05:52 Dose: 5,000 units Hydralazine HCl (Apresoline Iv*) 5 mg IV SLOW PU Q6H PRN PRN Reason: SBP > 185 Last Admin: 10/06/16 12:05 Dose: 5 mg Tamsulosin HCl (Flomax Cap*) 0.4 mg PO BEDTIME [facility] Last Admin: 10/06/16 20:57 Dose: 0.4 mg On neurological exam: Awake, alert, oriented x 3. Pupils symmetric and reactive. Gaze seems conjugate. Blurry vision on straight gaze, not have his glasses with him, but his mentions a couple of days ago he had clear diplopia with horizontal side by side images. Extraocular movements are intact. Face symmetric. Tongue in midline. Speech slightly dysarthric but completely intelligible. Strength 5/ 5 throughout. Finger to nose intact on the right , subtle target tremor on the left but no dysmetria. ANALY intact bilaterally. CTA head and neck: [facility] Patient Name:GAYLA FARIAS MR:[id number] : 1940 THYROID GLAND: The thyroid gland is normal. LYMPH NODES: There is no lymphadenopathy by size criteria. BONES AND SOFT TISSUES: Degenerative changes are noted of the spine CTA HEAD 1. ATHEROMATOUS DISEASE. 2. THERE IS APPROXIMATELY 70% STENOSIS OF THE PROXIMAL RIGHT INTERNAL CAROTID ARTERY BY NASCET CRITERIA. 3. THERE IS NO LEFT INTERNAL CAROTID ARTERY STENOSIS BY NASCET CRITERIA. 4. THERE IS DIFFUSE NARROWING OF THE CALIBER OF LEFT RENAL ARTERY, WITH OCCLUSION OF THE DISTAL LEFT VERTEBRAL ARTERY. 5. THERE IS MURAL IRREGULARITY OF THE INTRACRANIAL ARTERIAL TREE SUGGESTIVE OF INTRACRANIAL ATHEROSCLEROSIS. THERE IS MILD NARROWING OF THE MID THIRD OF THE BASILAR ARTERY Assessment and Plan: 76 year old male with intracranial atherosclerotic disease and multiple strokes in the posterior circulation. At this point, patient will need to continue the maximum medical management: continue antiplatelets, and statin, plus control of other vascular risk factors (hypertension). Echo did not reveal any thrombosis.
--- NOTE | 2016-10-07 14:48 | PN ---
Subjective Date of Service: 10/07/16 Interval History: HOSPITALIST PROGRESS NOTE Patient seen and examined at bedside. He feels better today, but still feels a little unsteady. Family History: Unchanged from Admission Social History: Unchanged from Admission Past Medical History: Unchanged from Admission Objective Active Medications: Acetaminophen (Tylenol Tab*) 650 mg PO Q6H PRN PRN Reason: PAIN Amlodipine Besylate (Norvasc Tab*) 2.5 mg PO DAILY [facility] Last Admin: 10/07/16 08:48 Dose: 2.5 mg Atorvastatin Calcium (Lipitor*) 40 mg PO 1700 [facility] Last Admin: 10/06/16 16:30 Dose: 40 mg Clopidogrel Bisulfate (Plavix Tab*) 75 mg PO DAILY [facility] Last Admin: 10/07/16 08:48 Dose: 75 mg Heparin Sodium (Porcine) (Heparin Vial(*)) 5,000 units SUBCUT Q8HR [facility] Last Admin: 10/07/16 14:15 Dose: 5,000 units Hydralazine HCl (Apresoline Iv*) 5 mg IV SLOW PU Q6H PRN PRN Reason: SBP > 185 Last Admin: 10/06/16 12:05 Dose: 5 mg Tamsulosin HCl (Flomax Cap*) 0.4 mg PO BEDTIME [facility] Last Admin: 10/06/16 20:57 Dose: 0.4 mg Vital Signs 10/07/16 10/07/16 08:00 11:28 Temperature 97.9 F Pulse Rate 81 Respiratory 18 16 Rate Blood Pressure 164/86 (mmHg) O2 Sat by Pulse 94 Oximetry Oxygen Devices in Use Now: None Appearance: Pleasant elderly male lying in bed in [facility]. Eyes: No Scleral Icterus Ears/Nose/Mouth/Throat: Mucous Membranes Moist Neck: Trachea Midline Respiratory: Symmetrical Chest Expansion and Respiratory Effort, Clear to Auscultation Cardiovascular: RRR - Normal S1 and S2 Abdominal: NL Sounds; No Tenderness; No Distention Neurological: Alert and Oriented x 3, NL Muscle Strength and Tone Lines/Tubes/Other Access: Clean, Dry and Intact Peripheral IV Nutrition: Taking PO's Result Diagrams: 10/06/16 04:46 10/06/16 04:46 Assess/Plan/Problems-Billing Assessment: Mr. Kamara is a 76yo M with PMH of untreated HTN, obesity, BPH, who presented to ED with c/o weakness, slurred speech, blurry vision, found to have uncontrolled HTN and right cerebellar CVA. - Patient Problems (1) CVA (cerebral vascular accident) Comment: - MRI brain showed restriction of difusion on in the right brainstem in the right cerebellar pedunculum, multiple acute lacunar infarcts in the right cerebellar hemisphere. - He has multiple vascular risk factors including HTN and HLD. - CTA head/neck showed right ICA stenosis (incidental). Right vertebral and basilar are intact. - Echocardiogram showed EF 50-55% and bubble study is negative. - No significant arrhythmias on Telemetry so far. - Neuro input appreciated - continue Plavix, Atorvastatin. - Continue Neuro checks. - Continue PT/OT/ST. - PMRU evaluation. 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 - Took lisinopril, HCTZ, amlodipine in the past and they were discontinued due to side effects (usually dizziness). Off treatment for 2 years. - Continue low dose Amlodipine - SBP 140-160s - continue to monitor. (3) Hyperlipidemia Comment: - LDL 133 - continue Atorvastatin. (4) Subclavian artery stenosis, left Comment: - BP measured on right arm was significantly higher then on left. - CTA chest/abd/pelvis showed 50% stenosis on left subclavian - patient denies any symptoms related to it. - Study also showed bilateral iliac stenosis (50% on the right, 80% on the left) , but he also denies LE claudication. - D/w Dr. Trinh - plan for evaluation as outpatient. - Continue Plavix and Atorvastatin. (5) Urinary retention Comment: - Likely secondary to BPH. - Continue Fisher and Flomax. (6) DVT prophylaxis Comment: - SQ heparin. (7) Full code status Status and Disposition: Inpatient.
[2016-10-07] MEDS: Atorvastatin* 40 MG TAB PO SCH (16:56)
[2016-10-07] MEDS: Tamsulosin CAP* 0.4 MG PO SCH (20:51)
[2016-10-08] MEDS: Heparin VIAL(*) 5000 UNITS/ML VIAL (FIVE THOUSAND) SUBCUT SCH ×3 (05:40→21:10)
[2016-10-08] MEDS: amLODIPine TAB* 5 MG PO SCH (09:49)
[2016-10-08] MEDS: Clopidogrel TAB* 75 MG PO SCH (09:49)
--- NOTE | 2016-10-08 15:06 | PN ---
Subjective Date of Service: 10/08/16 Interval History: HOSPITALIST PROGRESS NOTE Patient seen and examined at bedside. He is in good spirits today, excited about his progress. Diplopia is still present, but less prominent. Family History: Unchanged from Admission Social History: Unchanged from Admission Past Medical History: Unchanged from Admission Objective Active Medications: Acetaminophen (Tylenol Tab*) 650 mg PO Q6H PRN PRN Reason: PAIN Amlodipine Besylate (Norvasc Tab*) 2.5 mg PO DAILY [facility] Last Admin: 10/08/16 09:49 Dose: 2.5 mg Atorvastatin Calcium (Lipitor*) 40 mg PO 1700 [facility] Last Admin: 10/07/16 16:56 Dose: 40 mg Clopidogrel Bisulfate (Plavix Tab*) 75 mg PO DAILY [facility] Last Admin: 10/08/16 09:49 Dose: 75 mg Heparin Sodium (Porcine) (Heparin Vial(*)) 5,000 units SUBCUT Q8HR [facility] Last Admin: 10/08/16 05:40 Dose: 5,000 units Hydralazine HCl (Apresoline Iv*) 5 mg IV SLOW PU Q6H PRN PRN Reason: SBP > 185 Last Admin: 10/06/16 12:05 Dose: 5 mg Tamsulosin HCl (Flomax Cap*) 0.4 mg PO BEDTIME [facility] Last Admin: 10/07/16 20:51 Dose: 0.4 mg Vital Signs 10/08/16 10/08/16 08:00 11:33 Temperature 97.6 F Pulse Rate 82 Respiratory 16 18 Rate Blood Pressure 149/86 (mmHg) O2 Sat by Pulse 98 Oximetry Oxygen Devices in Use Now: None Appearance: Pleasant elderly male lying in bed in [facility]. Eyes: No Scleral Icterus Ears/Nose/Mouth/Throat: Mucous Membranes Moist Neck: Trachea Midline Respiratory: Symmetrical Chest Expansion and Respiratory Effort, Clear to Auscultation Cardiovascular: RRR - Normal S1 and S2 Abdominal: NL Sounds; No Tenderness; No Distention Extremities: No Edema Neurological: Alert and Oriented x 3, NL Muscle Strength and Tone Lines/Tubes/Other Access: Clean, Dry and Intact Peripheral IV Nutrition: Taking PO's Result Diagrams: 10/06/16 04:46 10/06/16 04:46 Assess/Plan/Problems-Billing Assessment: Mr. Kamara is a 76yo M with PMH of untreated HTN, obesity, BPH, who presented to ED with c/o weakness, slurred speech, blurry vision, found to have uncontrolled HTN and right cerebellar CVA. - Patient Problems (1) CVA (cerebral vascular accident) Comment: - MRI brain showed restriction of difusion on in the right brainstem in the right cerebellar pedunculum, multiple acute lacunar infarcts in the right cerebellar hemisphere. - He has multiple vascular risk factors including HTN and HLD. - CTA head/neck showed right ICA stenosis (incidental). Right vertebral and basilar are intact. - Echocardiogram showed EF 50-55% and bubble study is negative. - No significant arrhythmias on Telemetry so far. - Neuro input appreciated - continue Plavix, Atorvastatin. - Continue Neuro checks. - Continue PT/OT/ST. - PMRU evaluation. 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 - Took lisinopril, HCTZ, amlodipine in the past and they were discontinued due to side effects (usually dizziness). Off treatment for 2 years. - Continue low dose Amlodipine - SBP 140-160s - continue to monitor. (3) Hyperlipidemia Comment: - LDL 133 - continue Atorvastatin. (4) Subclavian artery stenosis, left Comment: - BP measured on right arm was significantly higher then on left. - CTA chest/abd/pelvis showed 50% stenosis on left subclavian - patient denies any symptoms related to it. - Study also showed bilateral iliac stenosis (50% on the right, 80% on the left) , but he also denies LE claudication. - D/w Dr. Trinh - plan for evaluation as outpatient. - Continue Plavix and Atorvastatin. (5) Urinary retention Comment: - Likely secondary to BPH. - Continue Fisher and Flomax. - Fisher education. (6) DVT prophylaxis Comment: - SQ heparin. (7) Full code status Status and Disposition: Inpatient.
[2016-10-08] MEDS ORDERED: amLODIPine TAB* 5 MG PO ONE (16:32)
[2016-10-08] MEDS: Atorvastatin* 40 MG TAB PO SCH (17:59)
[2016-10-08] MEDS: hydrALAZINE IV* 20 MG/ML VIAL IV SLOW PU PRN (21:07)
[2016-10-08] MEDS: Tamsulosin CAP* 0.4 MG PO SCH (21:09)
[2016-10-09] MEDS: Heparin VIAL(*) 5000 UNITS/ML VIAL (FIVE THOUSAND) SUBCUT SCH ×3 (05:59→21:28)
[2016-10-09] MEDS: amLODIPine TAB* 5 MG PO SCH (08:21)
[2016-10-09] MEDS: Clopidogrel TAB* 75 MG PO SCH (08:21)
--- NOTE | 2016-10-09 12:18 | PN ---
Subjective Date of Service: 10/09/16 Interval History: HOSPITALIST PROGRESS NOTE Patient seen and examined at bedside. He feels well today, offers no complaints. Family History: Unchanged from Admission Social History: Unchanged from Admission Past Medical History: Unchanged from Admission Objective Active Medications: Acetaminophen (Tylenol Tab*) 650 mg PO Q6H PRN PRN Reason: PAIN Amlodipine Besylate (Norvasc Tab*) 5 mg PO DAILY [facility] Last Admin: 10/09/16 08:21 Dose: 5 mg Atorvastatin Calcium (Lipitor*) 40 mg PO 1700 [facility] Last Admin: 10/08/16 17:59 Dose: 40 mg Clopidogrel Bisulfate (Plavix Tab*) 75 mg PO DAILY [facility] Last Admin: 10/09/16 08:21 Dose: 75 mg Heparin Sodium (Porcine) (Heparin Vial(*)) 5,000 units SUBCUT Q8HR [facility] Last Admin: 10/09/16 05:59 Dose: 5,000 units Hydralazine HCl (Apresoline Iv*) 5 mg IV SLOW PU Q6H PRN PRN Reason: SBP > 185 Last Admin: 10/08/16 21:07 Dose: 5 mg Tamsulosin HCl (Flomax Cap*) 0.4 mg PO BEDTIME [facility] Last Admin: 10/08/16 21:09 Dose: 0.4 mg Vital Signs 10/09/16 10/09/16 10/09/16 07:37 08:00 11:28 Temperature 98.2 F 98.1 F Pulse Rate 74 88 Respiratory 16 16 16 Rate Blood Pressure 151/79 147/75 (mmHg) O2 Sat by Pulse 96 97 Oximetry Oxygen Devices in Use Now: None Appearance: Pleasant elderly male sitting up in a chair in [facility]. Eyes: No Scleral Icterus Ears/Nose/Mouth/Throat: Mucous Membranes Moist Neck: Trachea Midline Respiratory: Symmetrical Chest Expansion and Respiratory Effort, Clear to Auscultation Cardiovascular: RRR - Normal S1 and S2 Abdominal: NL Sounds; No Tenderness; No Distention Extremities: No Edema Neurological: Alert and Oriented x 3, NL Muscle Strength and Tone Lines/Tubes/Other Access: Clean, Dry and Intact Peripheral IV Nutrition: Taking PO's Result Diagrams: 10/06/16 04:46 10/06/16 04:46 Assess/Plan/Problems-Billing Assessment: Mr. Kamara is a 76yo M with PMH of untreated HTN, obesity, BPH, who presented to ED with c/o weakness, slurred speech, blurry vision, found to have uncontrolled HTN and right cerebellar CVA. - Patient Problems (1) CVA (cerebral vascular accident) Comment: - MRI brain showed restriction of difusion on in the right brainstem in the right cerebellar pedunculum, multiple acute lacunar infarcts in the right cerebellar hemisphere. - He has multiple vascular risk factors including HTN and HLD. - CTA head/neck showed right ICA stenosis (incidental). Right vertebral and basilar are intact. - Echocardiogram showed EF 50-55% and bubble study is negative. - No significant arrhythmias on Telemetry so far. - Neuro input appreciated - continue Plavix, Atorvastatin. - Continue Neuro checks. - Continue PT/OT/ST. - Awaiting PMRU decision. 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 - Took lisinopril, HCTZ, amlodipine in the past and they were discontinued due to side effects (usually dizziness). Off treatment for 2 years. - Increase Amlodipine to 5mg/day and continue to monitor. (3) Hyperlipidemia Comment: - LDL 133 - continue Atorvastatin. (4) Subclavian artery stenosis, left Comment: - BP measured on right arm was significantly higher then on left. - CTA chest/abd/pelvis showed 50% stenosis on left subclavian - patient denies any symptoms related to it. - Study also showed bilateral iliac stenosis (50% on the right, 80% on the left) , but he also denies LE claudication. - D/w Dr. Trinh - plan for evaluation as outpatient. - Continue Plavix and Atorvastatin. (5) Urinary retention Comment: - Likely secondary to BPH. - Continue Fisher and Flomax. - Fisher education. (6) DVT prophylaxis Comment: - SQ heparin. (7) Full code status Status and Disposition: Inpatient.
[2016-10-09] MEDS: Atorvastatin* 40 MG TAB PO SCH (17:49)
[2016-10-09] MEDS: Tamsulosin CAP* 0.4 MG PO SCH (21:28)
[2016-10-10] MEDS: Heparin VIAL(*) 5000 UNITS/ML VIAL (FIVE THOUSAND) SUBCUT SCH ×3 (06:16→21:14)
[2016-10-10 09:18] LABS: BUN/Creatinine Ratio 19.4 (8-20); Calcium 10.4 mg/dL (8.6-10.3); EGFR African American 90.5 (>60); EGFR Non-African American 70.4 (>60); Magnesium 1.9 mg/dL (1.9-2.7); Potassium 3.8 mmol/L (3.5-5.0)
[2016-10-10] MEDS: Clopidogrel TAB* 75 MG PO SCH (11:08)
--- NOTE | 2016-10-10 11:08 | PN ---
Subjective Date of Service: 10/10/16 Interval History: HOSPITALIST PROGRESS NOTE Patient seen and examined at bedside. He feels well today, offers no new complaints. Disappointed [facility] didn't offer him a bed. He doesn't feel ready to go home and is willing to go to SNF for rehab. Family History: Unchanged from Admission Social History: Unchanged from Admission Past Medical History: Unchanged from Admission Objective Active Medications: Acetaminophen (Tylenol Tab*) 650 mg PO Q6H PRN PRN Reason: PAIN Amlodipine Besylate (Norvasc Tab*) 5 mg PO DAILY [facility] Last Admin: 10/09/16 08:21 Dose: 5 mg Atorvastatin Calcium (Lipitor*) 40 mg PO 1700 [facility] Last Admin: 10/09/16 17:49 Dose: 40 mg Clopidogrel Bisulfate (Plavix Tab*) 75 mg PO DAILY [facility] Last Admin: 10/09/16 08:21 Dose: 75 mg Heparin Sodium (Porcine) (Heparin Vial(*)) 5,000 units SUBCUT Q8HR [facility] Last Admin: 10/10/16 06:16 Dose: 5,000 units Hydralazine HCl (Apresoline Iv*) 5 mg IV SLOW PU Q6H PRN PRN Reason: SBP > 185 Last Admin: 10/08/16 21:07 Dose: 5 mg Tamsulosin HCl (Flomax Cap*) 0.4 mg PO BEDTIME [facility] Last Admin: 10/09/16 21:28 Dose: 0.4 mg Vital Signs 10/10/16 10/10/16 10/10/16 03:49 07:36 08:00 Temperature 98.0 F 97.6 F Pulse Rate 76 80 Respiratory 16 14 16 Rate Blood Pressure 153/79 154/86 (mmHg) O2 Sat by Pulse 94 98 Oximetry Oxygen Devices in Use Now: None Appearance: Pleasant elderly male sitting up in a chair in [facility]. Eyes: No Scleral Icterus Ears/Nose/Mouth/Throat: Mucous Membranes Moist Neck: Trachea Midline Respiratory: Symmetrical Chest Expansion and Respiratory Effort, Clear to Auscultation Cardiovascular: RRR - Normal S1 and S2 Abdominal: NL Sounds; No Tenderness; No Distention Extremities: No Edema Neurological: Alert and Oriented x 3, NL Muscle Strength and Tone, - - Gait still a little unsteady Lines/Tubes/Other Access: Clean, Dry and Intact Peripheral IV Nutrition: Taking PO's Result Diagrams: 10/06/16 04:46 10/10/16 08:29 Assess/Plan/Problems-Billing Assessment: Mr. Kamara is a 76yo M with PMH of untreated HTN, obesity, BPH, who presented to ED with c/o weakness, slurred speech, blurry vision, found to have uncontrolled HTN and right cerebellar CVA. - Patient Problems (1) CVA (cerebral vascular accident) Comment: - MRI brain showed restriction of difusion on in the right brainstem in the right cerebellar pedunculum, multiple acute lacunar infarcts in the right cerebellar hemisphere. - He has multiple vascular risk factors including HTN and HLD. - CTA head/neck showed right ICA stenosis (incidental). Right vertebral and basilar are intact. - Echocardiogram showed EF 50-55% and bubble study is negative. - No significant arrhythmias on Telemetry so far. - Neuro input appreciated - continue Plavix, Atorvastatin. - Continue Neuro checks. - Continue PT. - Patient is concerned about his speech. 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 Will request Speech pathology re-evaluation. - [facility] will not offer a bed at this time. Will pursue SNF placement for rehab ( patient interested in [place]). 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 - Took lisinopril, HCTZ, amlodipine in the past and they were discontinued due to side effects (usually dizziness). Off treatment for 2 years. - Continue Amlodipine 5mg/day and monitor. (3) Hyperlipidemia Comment: - LDL 133 - continue Atorvastatin. (4) Subclavian artery stenosis, left Comment: - BP measured on right arm was significantly higher then on left. - CTA chest/abd/pelvis showed 50% stenosis on left subclavian - patient denies any symptoms related to it. - Study also showed bilateral iliac stenosis (50% on the right, 80% on the left) , but he also denies LE claudication. - D/w Dr. Trinh - plan for evaluation as outpatient. - Continue Plavix and Atorvastatin. (5) Urinary retention Comment: - Likely secondary to BPH, but at risk for neurogenic bladder. - Continue Fisher and Flomax. - Fisher education. - Will need Urology f/u as outpatient. (6) DVT prophylaxis Comment: - SQ heparin. (7) Full code status Status and Disposition: Inpatient. updated at bedside.
[2016-10-10] MEDS: amLODIPine TAB* 5 MG PO SCH (11:09)
[2016-10-10] MEDS: Atorvastatin* 40 MG TAB PO SCH (16:25)
[2016-10-10] MEDS: Tamsulosin CAP* 0.4 MG PO SCH (21:06)
[2016-10-11] MEDS: Heparin VIAL(*) 5000 UNITS/ML VIAL (FIVE THOUSAND) SUBCUT SCH ×2 (05:37→13:03)
[2016-10-11] MEDS: amLODIPine TAB* 5 MG PO SCH (08:42)
[2016-10-11] MEDS: Clopidogrel TAB* 75 MG PO SCH (08:42)
--- NOTE | 2016-10-11 11:10 | PN ---
Subjective Date of Service: 10/11/16 Interval History: Pt is feeling ok. He denies any pain. He feels ready to go to [facility] at [facility]. No SOB. He is concerned about his medications though we reviewed them and I answered his and his 's questions. Objective Active Medications: Acetaminophen (Tylenol Tab*) 650 mg PO Q6H PRN PRN Reason: PAIN Amlodipine Besylate (Norvasc Tab*) 5 mg PO DAILY [facility] Last Admin: 10/11/16 08:42 Dose: 5 mg Atorvastatin Calcium (Lipitor*) 40 mg PO 1700 [facility] Last Admin: 10/10/16 16:25 Dose: 40 mg Clopidogrel Bisulfate (Plavix Tab*) 75 mg PO DAILY [facility] Last Admin: 10/11/16 08:42 Dose: 75 mg Heparin Sodium (Porcine) (Heparin Vial(*)) 5,000 units SUBCUT Q8HR [facility] Last Admin: 10/11/16 05:37 Dose: 5,000 units Hydralazine HCl (Apresoline Iv*) 5 mg IV SLOW PU Q6H PRN PRN Reason: SBP > 185 Last Admin: 10/08/16 21:07 Dose: 5 mg Tamsulosin HCl (Flomax Cap*) 0.4 mg PO BEDTIME [facility] Last Admin: 10/10/16 21:06 Dose: 0.4 mg Vital Signs 10/10/16 10/10/16 10/10/16 11:23 15:40 19:49 Temperature 97.8 F 97.6 F 97.8 F Pulse Rate 84 86 78 Respiratory 16 18 16 Rate Blood Pressure 155/91 148/83 159/74 (mmHg) O2 Sat by Pulse 95 96 97 Oximetry 10/10/16 10/10/16 10/11/16 20:00 23:49 04:04 Temperature 98.3 F 98.9 F Pulse Rate 83 78 Respiratory 16 16 16 Rate Blood Pressure 136/77 127/53 (mmHg) O2 Sat by Pulse 97 98 Oximetry 10/11/16 07:39 Temperature 99.9 F Pulse Rate 80 Respiratory 16 Rate Blood Pressure 150/72 (mmHg) O2 Sat by Pulse 97 Oximetry Oxygen Devices in Use Now: None Appearance: Elderly male sitting in a chair, NAD Eyes: No Scleral Icterus Ears/Nose/Mouth/Throat: Mucous Membranes Moist Respiratory: Symmetrical Chest Expansion and Respiratory Effort, Clear to Auscultation Cardiovascular: NL Sounds; No Murmurs; No JVD, RRR, No Edema Abdominal: NL Sounds; No Tenderness; No Distention Extremities: No Clubbing, Cyanosis Skin: No Rash or Ulcers, No Nodules or Sclerosis Neurological: Alert and Oriented x 3 Result Diagrams: 10/06/16 04:46 10/10/16 08:29 Additional Lab and Data: Lab Results 10/05/16 10/05/16 10/05/16 Range/Units 14:00 14:00 14:00 WBC 11.1 H (3.5-10.8) 10^3/ul RBC 5.34 (4.0-5.4) 10^6/ul Hgb 16.2 (14.0-18.0) g/dl Hct 49 (42-52) % MCV 91 (80-94) fL MCH 30 (27-31) pg MCHC 33 (31-36) g/dl RDW 14 (10.5-15) % Plt Count 157 (150-450) 10^3/ul MPV 11 H (7.4-10.4) um3 Neut % (Auto) 76.0 (38-83) % Lymph % (Auto) 15.7 L (25-47) % Smyth % (Auto) 6.2 (1-9) % Eos % (Auto) 0.8 (0-6) % Baso % (Auto) 1.3 (0-2) % Absolute Neuts (auto) 8.5 H (1.5-7.7) 10^3/ul Absolute Lymphs (auto) 1.8 (1.0-4.8) 10^3/ul Absolute Monos (auto) 0.7 (0-0.8) 10^3/ul Absolute Eos (auto) 0.1 (0-0.6) 10^3/ul Absolute Basos (auto) 0.1 (0-0.2) 10^3/ul Absolute Nucleated RBC 0.01 10^3/ul Nucleated RBC % 0.1 Sodium 137 (133-145) mmol/L Potassium 4.1 (3.5-5.0) mmol/L Chloride 103 (101-111) mmol/L Carbon Dioxide 26 (22-32) mmol/L Anion Gap 8 (2-11) mmol/L BUN 25 H (6-24) mg/dL Creatinine 1.07 (0.67-1.17) mg/dL Est GFR ( Amer) 86.6 (>60) Est GFR (Non-Af Amer) 67.4 (>60) BUN/Creatinine Ratio 23.4 H (8-20) Glucose 100 (70-100) mg/dL Lactic Acid 1.3 (0.5-2.0) mmol/L Calcium 9.9 (8.6-10.3) mg/dL Magnesium 2.4 (1.9-2.7) mg/dL Total Bilirubin 0.60 (0.2-1.0) mg/dL AST 32 (13-39) U/L ALT 48 (7-52) U/L Alkaline Phosphatase 56 (34-104) U/L Total Creatine Kinase 50 (10-223) U/L Troponin I 0.04 H* (<0.04) ng/mL Total Protein 8.3 (6.4-8.9) g/dL Albumin 4.0 (3.2-5.2) g/dL Globulin 4.3 H (2-4) g/dL Albumin/Globulin Ratio 0.9 L (1-3) Microbiology and Other Data: Microbiology 10/05/16 23:35 Aerobic Blood Culture - Preliminary Blood Venous No Growth Day 1 Assess/Plan/Problems-Billing Mr. Kamara is a 76yo M with PMHx of untreated HTN, obesity, BPH, who presented to ED with c/o weakness, slurred speech, blurry vision, found to have uncontrolled HTN and right cerebellar CVA. - Patient Problems (1) CVA (cerebral vascular accident) Current Visit: Yes Status: Acute Code(s): I63.9 - CEREBRAL INFARCTION, UNSPECIFIED SNOMED Code(s): 624722864 Comment: Continue plavix and lipitor. Plan is for the patient to go to [facility] at [facility] today. No evidence of afib on tele. (2) HTN (hypertension) Current Visit: Yes Status: Acute Code(s): I10 - ESSENTIAL (PRIMARY) HYPERTENSION SNOMED Code(s): 28806722 Comment: Pt's BP is still moderately elevated. Will increase amlodipine to 10mg daily. Start this dose tomorrow AM. (3) Hyperlipidemia Current Visit: Yes Status: Acute Code(s): E78.5 - HYPERLIPIDEMIA, UNSPECIFIED SNOMED Code(s): 86507440 Comment: LDL was 133, continue lipitor. (4) Subclavian artery stenosis, left Current Visit: Yes Status: Acute Code(s): I77.1 - STRICTURE OF ARTERY SNOMED Code(s): 645328050 Comment: Pt needs outpatient evaluation for both subclavian stenosis and iliac stenosis. Can be arranged by Dr. Boo once he is home from [facility]. Continue plavix and lipitor. (5) Urinary retention Current Visit: Yes Status: Acute Code(s): R33.9 - RETENTION OF URINE, UNSPECIFIED SNOMED Code(s): 054196621 Comment: This is likely chronic given c/o BPH symptoms prior to this hospitalization. Continue flomax and saldivar catheter. He will need to be set up from outpatient urology evaluation. (6) DVT prophylaxis Current Visit: Yes Status: Acute Code(s): FLO6138 - SNOMED Code(s): 357134699 Comment: SQ heparin (7) Full code status Current Visit: Yes Status: Acute Code(s): Z78.9 - OTHER SPECIFIED HEALTH STATUS SNOMED Code(s): 017425865 Status and Disposition: d/c to [facility]
[2016-10-11 11:32] VITALS: BP 160/88
--- NOTE | 2016-10-11 12:46 | DS ---
DISCHARGE SUMMARY: DATE OF ADMISSION: 10/05/16 DATE OF DISCHARGE: 10/11/16 PRIMARY CARE PROVIDER: Dr. Boo. PRINCIPAL DIAGNOSES: 1. Acute right cerebellar cerebrovascular accident. 2. Hypertensive emergency. 3. Likely chronic urinary retention. SECONDARY DIAGNOSES: 1. Hyperlipidemia. 2. Benign prostatic hypertrophy. DISCHARGE MEDICATIONS: 1. Amlodipine 10 mg p.o. daily (new). 2. Flomax 0.4 mg p.o. q.h.s. (new). 3. Plavix 75 mg p.o. daily (new). 4. Lipitor 40 mg p.o. q.h.s. (new). 5. Tylenol 650 mg p.o. q.6 hours p.r.n. pain (new). DISCONTINUED MEDICATION: Aspirin. HOSPITAL COURSE: Mr. Kamara is a 76-year-old male with a history of untreated hypertension and BPH, who presented to the emergency room with complaints of generalized weakness, double vision, and urinary retention. The patient had initially stated he became ill on 09/21/16 with vomiting that lasted approximately 2-1/2 days. The patient did not return to his baseline health following this, however. Since that time, the patient has been very weak with very poor appetite. On 09/26/16, the patient's actually obtained a walker because of his difficulty with getting around. On 10/02/16, after falling at home, the patient was seen in the emergency room. He had imaging studies of the neck and a chest x- ray and ultimately discharged home. He re-presented to the emergency room on 10/05/16 with the above complaints and at that time underwent a CT scan of the brain which showed a right lacunar basal ganglia infarct. Additionally, he was found to have significant urinary retention of 2 liters of urine. The patient was admitted for evaluation and management of these conditions. The patient was seen in consultation by Dr. Rae who felt that his symptoms were not well localizing except for a questionable right foot sensory asymmetry. He felt that it was possible his symptoms may reflect bland deconditioning in an older and overweight individual. It was recommended, however, to complete the stroke workup. Additionally, he sent acetylcholine receptor antibody to evaluate for myasthenia gravis, which could cause both visual symptoms and diffuse or symmetric motor symptoms. Although at the time of Dr. Rae's evaluation , the patient was not able to reproduce these symptoms. The patient had a brain MRI, which showed restricted diffusion of the right brainstem in the right cerebellar peduncle and multiple acute lacunar infarcts in the right cerebellar hemisphere. His carotid Dopplers revealed a 50% to 69% stenosis of both internal carotid arteries. CTA of the chest, abdomen, and pelvis revealed widespread mixed attenuation atherosclerosis including no evidence of aneurysmal dilation of the aorta or aortic dissection. There is concentric atheroma at the origin of the right brachiocephalic artery, which does not cause any significant stenosis. There is a high-grade stenosis of the proximal left subclavian artery due to mostly noncalcified atheroma. This appearance would account for reduced blood pressure acquired in the left upper extremity relative to the right. Mostly noncalcified eccentric atheroma narrows the bilateral common iliac arteries approximately 50% on the right and up to 80% on the left. It was recommended to correlate these signs to symptoms of lower extremity claudication. There is a focus of high-grade stenosis in the superior portion of the right superficial femoral artery, which potentially could cause right lower extremity claudication. It was felt that the patient likely has hepatic steatosis. There is also appearance of a thickened and nodular urinary bladder wall which is likely the consequence of decompression caused by the patient's Fisher catheter. Following these findings, it was recommended that the patient undergo a TTE with bubble study. It was also recommended to transition to Plavix from aspirin, presuming this is an aspirin failure. It was also recommended that a statin medication be started. Dr. Blue followed up on 10/07/16; at that time, had the results of all of the imaging studies. It was found that the patient had intracranial atherosclerotic disease and multiple strokes in the posterior circulation. It was recommended that he continue on maximum medical management including antiplatelets, statin, and control of other vascular risk factors, i.e., hypertension. Echocardiogram did not reveal any evidence of thrombus. The patient was evaluated by [facility] and the patient was felt to be doing too well to be discharged to that unit. Ultimately, the plan is for the patient to be discharged to [facility] today on 10/11. In terms of the patient's hypertension, his blood pressure was markedly elevated on admission at 214/112. In the past, the patient has been resistant to medications. He is agreeable to being on amlodipine at this time. The patient was started on 5 mg of the amlodipine daily and with this, his blood pressure is under fair control though not ideal. The patient's amlodipine dose will be increased to 10 mg p.o. daily, starting 10/12/16. The patient's blood pressure will need to be monitored and he will monitor for side effects from this medication. The patient will need to follow up with Dr. Boo in the long-run for further adjustments in his antihypertensive regimen. On admission, the patient was also found to have 2 liters of urine in his bladder. The patient did give a history of BPH symptoms prior to falling ill with a GI illness earlier this month. At that time, he was having to get up every 2 to 4 hours to urinate. Following the GI illness, he was having to urinate every 45 minutes. The patient had a Fisher catheter placed in the emergency room. The Fisher catheter will remain in place until he is seen in consultation by Urology as an outpatient. This will need to be set up by his primary care provider. The patient will need teaching on how to utilize the leg bag and switching between the leg bag and regular Fisher catheter bag at home. The patient has also been started on Flomax for presumed BPH. In terms of the subclavian stenosis and iliac stenosis, the patient would likely benefit from evaluation by Dr. Trinh as an outpatient. A referral can be made once the patient has completed subacute rehab and this again will need to come from his primary care provider. FOLLOWUP CONCERNS: The patient is being discharged to [facility] today, 10/11/16. ACTIVITY LEVEL: As tolerated. DIET: Low fat. CONDITION ON DISCHARGE: Stable. TIME SPENT: 45 minutes was spent discharging this patient. [id number]/CPS #: [id number] MTDD
== END 2016-10-11 15:15 | DRG 45 ==
LOC: ED 13:15 → MEDTELE 18:12
PROVIDERS: ADMIT Hospitalist; ATTEND Hospitalist
PROC: 0T9B70Z Drainage of Bladder with Drainage Device, Via Natural or Artificial Opening (ICD-10-PCS; principal; 2016-10-05)
DX: I63.9 Cerebral infarction, unspecified (principal); I44.7 Left bundle-branch block, unspecified; K76.0 Fatty (change of) liver, not elsewhere classified; I10 Essential (primary) hypertension; Z88.1 Allergy status to other antibiotic agents; E78.00 Pure hypercholesterolemia, unspecified; Z97.4 Presence of external hearing-aid; Z82.49 Family history of ischemic heart disease and other diseases of the circulatory system; Z80.3 Family history of malignant neoplasm of breast; Z91.14 Patient's other noncompliance with medication regimen; E66.9 Obesity, unspecified; I70.203 Unspecified atherosclerosis of native arteries of extremities, bilateral legs; I77.1 Stricture of artery; N40.1 Benign prostatic hyperplasia with lower urinary tract symptoms; R33.8 Other retention of urine; H91.93 Unspecified hearing loss, bilateral; I65.23 Occlusion and stenosis of bilateral carotid arteries; I70.0 Atherosclerosis of aorta; I70.8 Atherosclerosis of other arteries; I70.213 Atherosclerosis of native arteries of extremities with intermittent claudication, bilateral legs; R47.81 Slurred speech; R53.1 Weakness; R29.700 NIHSS score 0; R27.8 Other lack of coordination; Z68.35 Body mass index [BMI] 35.0-35.9, adult; I16.0 Hypertensive urgency
CPT/HCPCS: 36415; 70450; 70496; 70498; 70551; 71020; 71275; 72125; 74174; 80048; 80053; 80061; 81003; 81015; 82550; 83036; 83605; 83735; 84484; 85025; 87040; 87502; 93005; 93306; 93880; 99283; A9270-GY; C8929; G8996-GN-CH; G8997-GN-CH; G8998-GN-CH; G8999-GN-CH; G9158-GN-CH; G9159-GN-CH; G9160-GN-CH; G9161-GN-CH; G9162-GN-CH; G9163-GN-CH; G9164-GN-CH; G9168-GN-CI; G9169-GN-CI; G9170-GN-CI; G9186-GN-CH; J0360; J1644; Q9967

== ENCOUNTER 2017-04-05 08:06 | Observation (INO) | payer BC, MEDICARE, OTHER ==
--- NOTE | 2017-02-15 23:28 | HP ---
CC: Alo Boo MD * ADMITTING HISTORY AND PHYSICAL: DATE OF ADMISSION: 02/22/17 AGE: 76 years, male. ADMITTING DIAGNOSES: 1. Bladder calculi. 2. Prostate enlargement. 3. Urinary retention. PLANNED PROCEDURE: Cystoscopy, fragmentation and removal of bladder calculi, possible laser and transurethral resection of prostate. SURGEON: Luis Angel Arroyo MD. HISTORY OF PRESENT ILLNESS: Amadou Kamara is a 76-year-old gentleman with longstanding history of prostate related symptoms. He had been seen recently after a gap of several years and after a recent stroke, was noted to be in urinary retention with a large residual. Cystoscopy had revealed a moderately enlarged prostate and 2 large bladder calculi. He had initially been managed with indwelling Fisher catheter because the initial urodynamic study had been consistent with a flaccid neurogenic bladder. He recently had been feeling more sensation with bladder fullness and a repeat urodynamic study was carried out, which did reveal some improvement in terms of bladder sensitivity and some ability to generate detrusor pressure. This is still not normal and I have counseled him that he may still be in urinary retention after transurethral resection of prostate as his bladder contractility certainly is not normal. However, he wishes to have the transurethral resection of prostate done at the same time as the removal of the bladder calculi and is now being brought in for the same. PAST MEDICAL HISTORY: Significant for: 1. BPH. 2. Neurogenic bladder. 3. Cerebrovascular accident. MEDICATIONS ON ADMISSION: 1. Zolpidem 25 mg once a day at bedtime. 2. Atorvastatin 40 mg daily. 3. Plavix, which is currently on hold. 4. Amlodipine 5 mg daily. 5. Finasteride 5 mg daily. ALLERGIES: No known drug allergies. REVIEW OF SYSTEMS: He denies any chest pain or shortness of breath. There is no history of diabetes mellitus or any other major systemic illness. PHYSICAL EXAMINATION GENERAL: Reveals a pleasant elderly gentleman, who uses a walker. VITAL SIGNS: Blood pressure is 132/76, pulse 74 per minute regular, oxygen saturation 98% on room air. LUNGS: Clear to auscultation bilaterally. CARDIOVASCULAR EXAM: Regular rate and rhythm. S1, S2. ABDOMEN: Soft without masses. A Fisher catheter is in place. IMPRESSION: A 76-year-old gentleman with bladder calculi, prostate enlargement and urinary retention. PLANNED PROCEDURE: Cystoscopy, fragmentation and removal of bladder calculi, possible laser and transurethral resection of prostate. [id number]/[facility] #: [id number] [facility]
--- NOTE | 2017-03-31 22:13 | HP ---
CC: Dr. Alo Boo; Dr. Corral * ADMITTING HISTORY AND PHYSICAL: DATE OF ADMISSION: 04/05/17 ADMITTING DIAGNOSES: 1. Urinary retention. 2. Bladder calculi. 3. Prostate enlargement. PLANNED PROCEDURE: Transurethral resection of prostate, fragmentation, and removal of bladder calculi, possible laser. ADMITTING HISTORY AND PHYSICAL: Amadou Kamaar is a 76-year-old gentleman who I had evaluated, in October of 2016, following a cerebellar stroke. He was noted to have retention of urine and had a Fisher catheter placed. My initial evaluation had been consistent with a flaccid neurogenic bladder and he was also noted on evaluation to have 2 large bladder calculi. I had initially recommended that he only have treatment of the bladder calculi, as I was not confident that he would ever empty his bladder adequately given the impaired bladder contractility. However, over the last few months, he feels that he has noticed return of bladder sensation and a repeat urodynamics did reveal definite improvement in detrusor muscle activity, which although still not perfect, is certainly an improvement from his initial urodynamic study. I still counseled him that he may not ever empty his bladder adequately enough to be rid off a Fisher catheter, but he would like to have a transurethral resection of prostate done at the time of removal of the bladder calculi. PAST MEDICAL HISTORY: Significant for: 1. Peripheral vascular disease. 2. History of spinal stenosis. 3. Cerebellar stroke in September of 2016. MEDICATIONS: On admission: 1. Atorvastatin 40 mg a day. 2. Plavix which is currently on hold. 3. Amlodipine 5 mg daily. 4. Melatonin 3 mg at night p.r.n. 5. Dutasteride 0.5 mg daily. 6. Zolpidem 6.25 mg at bedtime as needed. 7. Magnesium oxide 400 mg 1 capsule daily. ALLERGIES AND INTOLERANCES: ERYTHROMYCIN. REVIEW OF SYSTEMS: He denies any chest pain or shortness of breath. PHYSICAL EXAMINATION GENERAL: Reveals a pleasant elderly gentleman who uses a walker for ambulating. VITAL SIGNS: Blood pressure is 120/76, pulse 66 per minute, oxygen saturation 98% on room air. LUNGS: Clear bilaterally. CARDIOVASCULAR: Regular rate and rhythm. S1, S2. ABDOMEN: Soft without masses. A Fisher catheter is in place draining clear urine. IMPRESSION: I have had a detailed discussion on several occasions with Mr. Kamara and explained to him that because of less than adequate detrusor activity, he may still continue to be in retention in spite of a transurethral resection of prostate. I have offered him the option of just having a procedure endoscopically to take care of the bladder calculi, but he would like to have both the stone removal and the transurethral resection of prostate. PLAN: Transurethral resection of prostate, and fragmentation and removal of bladder calculi, possible laser. [id number]/[facility] #: [id number] MTDSailaja
[~2017-04-05 08:06] MED LIST: Buffered Lidocaine 0.9% SYRIN* 5 ML/SYR SYRINGE INTRADERM ONE; Dexamethasone IV* 4 MG/ML 1 ML (4 MG) IV SLOW PU ONE; Famotidine IV* 10 MG/ML 2 ML (20 mg) IV ONE
[2017-04-05] MEDS ORDERED: Famotidine IV* 10 MG/ML 2 ML (20 mg) ONE (08:28)
[2017-04-05] MEDS ORDERED: cefTRIAXone(*) 2 GM ADDV.VIAL IVPB ONE (08:28)
[2017-04-05] MEDS ORDERED: Dexamethasone IV* 4 MG/ML 1 ML (4 MG) ONE (08:28)
[2017-04-05] MEDS ORDERED: Buffered Lidocaine 0.9% SYRIN* 5 ML/SYR SYRINGE ONE (08:28)
[2017-04-05 09:09] LABS: Mean Platelet Volume 9 um3 (7.4-10.4)
[2017-04-05] MEDS ORDERED: fentaNYL* 50 MCG/ML 2 ML VIAL (100 MCG VIAL) ONE (10:56)
[2017-04-05] MEDS ORDERED: Midazolam* 1 MG/ML 5 ML VIAL (5 MG) ONE (10:56)
[2017-04-05] MEDS ORDERED: Midazolam* 1 MG/ML 2 ML VIAL (2 MG) ONE (11:24)
[2017-04-05] MEDS ORDERED: PROCHLORPERAZINE INJ 5 MG/ML 2 ML VIAL IV PRN (11:43)
[2017-04-05] MEDS ORDERED: fentaNYL* 50 MCG/ML 2 ML VIAL (100 MCG VIAL) IV PRN (11:43)
[2017-04-05] MEDS ORDERED: oxyCODONE/Acetamin 5/325 MG* TAB PO PRN ×2 (11:43→14:30)
[2017-04-05] MEDS ORDERED: Ondansetron INJ* 2 MG/ML VIAL IV PRN (11:43)
[2017-04-05] MEDS ORDERED: HYDROcodone/ACETAMIN 5-325 MG* 1 TAB PO PRN (11:43)
[2017-04-05] MEDS ORDERED: Furosemide IV* 10 MG/ML 2 ML VIAL (20 MG) ONE (12:02)
[2017-04-05] MEDS ORDERED: Zolpidem TAB* 5 MG PO PRN (14:34)
[2017-04-05] MEDS ORDERED: Atorvastatin* 40 MG TAB PO SCH (21:00)
[2017-04-05] MEDS ORDERED: CMCS Melatonin (NF) 3 MG TAB PO SCH (21:00)
[2017-04-05] MEDS: Docusate CAP* 100 MG PO SCH (21:51)
[2017-04-06 06:44] LABS: BUN/Creatinine Ratio 16.3 (8-20); EGFR African American 121.2 (>60); EGFR Non-African American 94.2 (>60); Potassium 3.9 mmol/L (3.5-5.0)
[2017-04-06 07:53] VITALS: BP 145/64
[2017-04-06] MEDS: Docusate CAP* 100 MG PO SCH (08:30)
[2017-04-06] MEDS ORDERED: amLODIPine TAB* 5 MG PO SCH (09:00)
--- NOTE | 2017-04-06 09:45 | OP ---
CC: Dr. Alo Boo OPERATIVE REPORT: DATE OF OPERATION: 04/05/17 DATE OF : 42 SURGEON: Dr. Arroyo. ANESTHESIOLOGIST: Dr. Miranda. ANESTHESIA: Spinal. PRE-OP DIAGNOSES: 1. Urinary retention. 2. Bladder calculi. 3. Prostate enlargement. POST-OP DIAGNOSES: 1. Urinary retention. 2. Bladder calculi. 3. Prostate enlargement. OPERATIVE PROCEDURE: 1. Transurethral resection of prostate. 2. Fragmentation and removal of multiple bladder calculi. INDICATIONS: Amadou Kmaara is a 76-year-old gentleman with a history of urinary retention and baldemar dder calculi. OPERATIVE FINDINGS: 1. Moderately enlarged obstructing prostate. 2. Two large bladder calculi. POSTOPERATIVE CONDITION: Stable. COMPLICATIONS: None. CATHETER: 24-Mauritian 30 cc Fisher. ESTIMATED BLOOD LOSS: Approximately 50 cc. SPECIMEN: 1. Fragments of bladder calculi. 2. Prostate chips. DESCRIPTION OF PROCEDURE: After induction of spinal anesthesia, the patient was placed in dorsal li thotomy position. Sequential compression devices were in place and functioning. Initial cystoscopy revealed normal appearing urethra, a moderately large obstructing prostate. The bladder was examin ed. There were 2 large calculi noted in the bladder. Bladder eid were trabeculated. Using the stone crushing forceps, the calculi were fragmented into multiple smaller pieces, all of w hich were irrigated out. Next, attention was directed to the transurethral resection of prostate. The resectoscope was intro duced. Transurethral resection was carried out from the bladder neck down to the veru. The floor o f the prostate was first resected, followed by lateral lobe tissue and then anterior tissue. Care w as taken not to extend the resection beyond the veru in an effort to avoid any injury to the sphinct er. The resected tissue was removed using an EllAccuvant evacuator. Hemostasis appeared satisfactory at the end of the procedure and a 24-Mauritian Fisher was introduced without difficulty. The patient micaela ated the procedure satisfactorily and was transferred back to the recovery area in stable condition. [id number]/[facility] #: [id number]
[2017-04-06] MEDS ORDERED: Magnesium Oxide TAB* 400 MG PO SCH (12:00)
== END 2017-04-06 10:30 | disposition home or self-care (01) ==
LOC: OR 08:06 → SSU 14:28
PROVIDERS: ADMIT Urology; ATTEND Urology
DX: N40.1 Benign prostatic hyperplasia with lower urinary tract symptoms (principal); R33.8 Other retention of urine; N21.0 Calculus in bladder; I10 Essential (primary) hypertension; I44.7 Left bundle-branch block, unspecified; Z86.73 Personal history of transient ischemic attack (TIA), and cerebral infarction without residual deficits; Z79.01 Long term (current) use of anticoagulants; I65.21 Occlusion and stenosis of right carotid artery
CPT/HCPCS: 36415; 80048; 82365; 85049; 88300; 88305; A9270-GY; J0696; J1100; J1580; J1940; J2250; J3010

== ENCOUNTER 2017-08-01 21:19 | Emergency (ER) | payer BC, OTHER ==
[2017-08-01 21:38] VITALS: BP 168/83
--- OUTSIDE RECORDS SUMMARY | 2017-08-01 21:56 | XMS REPORT ---
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 High 5-21 32 Creatinine, Serum 1.3 mg/dL 0.6-1.5 32 Sodium 141 mmol/L 136-146 32 Potassium 4.2 mmol/L 3.5-5.3 32 Chloride 109 mmol/L 98-110 32 Carbon Dioxide 20 mmol/L 20-32 32 Albumin 4.4 g/dL 3.5-4.7 32 Protein, Total 7.1 g/dL 6.4-8.2 32 Calcium 8.5 mg/dL 8.4-10.4 32 Alkaline Phosphatase 63 U/L 10-118 32 Sgot (Ast) 23 U/L 3-30 32 SGPT (Alt) 31 U/L 7-40 32 Bilirubin, Total 0.56 mg/dL 0.30-1.20 32 1 1 SST 2 Please refer to the following specimen for additional lab results. TEST: [id number] Comp. Metabolic Panel ([id number] Lipid Panel 186616 TSH [phone] 3 INTERNATIONAL NORMALIZED RATIO(INR) INDICATIONS INR RANGE PATIENTS NOT ON ANTICOAGULANT THERAPY * DEEP VENOUS THROMBOSIS 2.0-3.0 PULMONARY EMBOLISM 2.0-3.0 ATRIAL FIBRILLATION 2.0-3.0 PROPHYLAXIS: 2.0-3.0 HIGH-RISK SURGERY TISSUE HEART VALVES ATRIAL FIBRILLATION ACUTE MYOCARDIAL INFARCTION VALVULAR HEART DISEASE MECHANICAL PROSTHETIC VALVE 2.5-3.5 * USE OF INR VALUES SHOULD BE LIMITED TO PATIENTS WHO ARE ON STABLE ORAL ANTICOAGULANT THERAPY. AN INR ABOVE 5.0-5.5 APPEARS TO BE ASSOCIATED WITH AN UNACCEPTABLY HIGH RISK OF BLEEDING. 4 Please refer to the following specimen for additional lab results. TEST: [id number] PT and PTT [phone] 5 1 sst 6 High School Tutor: [id number] STANLEYNOR HAYLEY 7 SEE RESULT BELOW Name: GAYLA FARIAS : [address]: Malinda Null MD Acct: [id number] Unit: [id number] AGE: 76 Location: ED Re10/05/16 SEX: M Status: REG ER SPEC: [id number] EMI: 10/05/16-[address] [facility] [address]: Malinda Null MD REQ: [id number] RECD: 10/05/16 STATUS: BRIEN RICE DR: Alo Boo MD _ SOURCE: NASAL SPDESC: ORDERED: Flu A B Request Procedure Result Reported Site Rapid Influenza A B Request Final 10/05/16- 1730 ML Specimen received for Influenza A/B Molecular testing * ML - MAIN LAB ([facility]) . END OF REPORT * ML=Testing performed at Main Lab DEPARTMENT OF PATHOLOGY, [address] [place] [address] Michael Starr M.D. Director [facility] # [id number] SEE RESULT BELOW Name: GAYLA FARIAS : [address]: Leann Petty MD Acct: [id number] Unit: [id number] AGE: 76 Location: [address]: 10/05/16 SEX: M Status: ADM IN SPEC: [id number] EMI: 10/05/[address] [facility] [address]: Malinda Null MD REQ: [id number] RECD: 10/05/16 STATUS: BRIEN RICE DR: Alo Boo MD _ SOURCE: BLOOD,VENO SPDES: ORDERED: Blood Cult Procedure Result Reported Site Aerobic Culture Bottle Final 10/10/162346 ML No Growth Day 5 * ML - MAIN LAB ([facility]) . END OF REPORT * ML=Testing performed at Main Lab DEPARTMENT OF PATHOLOGY, [address] [place] [address] Michael Starr M.D. Director [facility] # [id number] 9 Because ethnic data is not always readily available, this report includes an eGFR for both -Americans and non- Americans. The National Kidney Disease Education Program (NKDEP) does not endorse the use of the MDRD equation for patients that are not between the ages of 18 and 70, are , have extremes of body size, muscle mass, or nutritional status, or are non- or non-. According to the National Kidney Foundation, irrespective of diagnosis, the stage of the disease is based on the level of kidney function: Stage Description GFR(mL/min/1.73 m(2)) 1 Kidney damage with normal or decreased GFR 90 2 Kidney damage with mild decrease in GFR 60-89 3 Moderate decrease in GFR 30-59 4 Severe decrease in GFR 15-29 5 Kidney failure <15 (or dialysis) 10 Because ethnic data is not always readily available, this report includes an eGFR for both -Americans and non- Americans. The National Kidney Disease Education Program (NKDEP) does not endorse the use of the MDRD equation for patients that are not between the ages of 18 and 70, are , have extremes of body size, muscle mass, or nutritional status, or are non- or non-. According to the National Kidney Foundation, irrespective of diagnosis, the stage of the disease is based on the level of kidney function: Stage Description GFR(mL/min/1.73 m(2)) 1 Kidney damage with normal or decreased GFR 90 2 Kidney damage with mild decrease in GFR 60-89 3 Moderate decrease in GFR 30-59 4 Severe decrease in GFR 15-29 5 Kidney failure <15 (or dialysis) 11 Desirable <150 Borderline high 150-199 High 200-499 Very High >500 12 Desirable <200 Borderline high 200-239 High >239 13 Low <40 Desirable: 40-60 High: >60 14 Desirable <100 Near Optimal 100-129 Borderline high 130-159 High 160-189 Very High >189 15 2 sst, 1 lav, 1 urine container 16 Cholesterol Risk Levels (NIH) Recommended: under 200 mg/dl Borderline : 200-239 mg/dl High Risk : Above 240 mg/dl 17 The National Cholesterol Education Program recommends the following ranges for LDL Cholesterol: Optimal under 100 mg/dl Near or above Optimal 100 - 129 mg/dl Borderline High 130 - 159 mg/dl High 160 - 189 mg/dl Very High above 190 mg/dl 18 Triglyceride Risk Levels: Normal : <150 mg/dl Borderline : 150-199 mg/dl High : 200-499 mg/dl Very High : >500 mg/dl 19 LDL/HDL Risk Ratio Levels MALE FEMALE 1/2 X Average 1.00 1.47 Average 3.55 3.22 2 X Average 6.25 5.03 3 X Average 7.99 6.14 20 CHOL/HDL Risk Ratio Levels MALE FEMALE 1/2 X Average 3.4 3.3 Average 5.0 4.4 2 X Average 9.5 7.0 3 X Average 24.0 11.0 21 . Serum PSA results should be used only in conjunction with information available from the clinical evaluation of the patient and other diagnostic procedures. Values obtained with different assay methods or kits cannot be used interchangeably. Results obtained using [employer] ICMA methodology. 22 mL/min/1.73m2 . Normal Function or Mild Renal Disease, if clinically at risk: >or=60 Moderately decreased: 30 - 59 Severely decreased: 15 - 29 Renal Failure: <15 . Please note that the MDRD equation requires an additional adjustment for -Americans (multiply the GFR result by 1.210). . Glomerular Filtration Rate (GFR) is estimated based on the MDRD equation, which assumes a steady state for creatinine (Gayathri Int Med 139/2 137-149, 2003), as recommended by the National Kidney Disease Education Program in conjunction with the National Institutes of Health and the National Kidney Foundation. . Clinical conditions in which it may be necessary to measure GFR by using clearance methods include extremes of age and body size, severe malnutrition or obesity, diseases of skeletal muscle, paraplegia or quadriplegia, vegetarian diet, rapidly changing kidney function, and calculation of the dose of potentially toxic drugs that are excreted by the kidneys. 23 FASTING; 1 LAV; 2 SST 24 mL/min/1.73m2 . Normal Function or Mild Renal Disease, if clinically at risk: >or=60 Moderately decreased: 30 - 59 Severely decreased: 15 - 29 Renal Failure: <15 . Please note that the MDRD equation requires an additional adjustment for -Americans (multiply the GFR result by 1.210). . Glomerular Filtration Rate (GFR) is estimated based on the MDRD equation, which assumes a steady state for creatinine (Gayathri Int Med 139/2 137-149, 2003), as recommended by the National Kidney Disease Education Program in conjunction with the National Institutes of Health and the National Kidney Foundation. . Clinical conditions in which it may be necessary to measure GFR by using clearance methods include extremes of age and body size, severe malnutrition or obesity, diseases of skeletal muscle, paraplegia or quadriplegia, vegetarian diet, rapidly changing kidney function, and calculation of the dose of potentially toxic drugs that are excreted by the kidneys. 25 . Serum PSA results should be used only in conjunction with information available from the clinical evaluation of the patient and other diagnostic procedures. Values obtained with different assay methods or kits cannot be used interchangeably. Results obtained using [employer] ICMA methodology. 26 Cholesterol Risk Levels (NIH) Recommended: under 200 mg/dl Borderline : 200-239 mg/dl High Risk : Above 240 mg/dl 27 The National Cholesterol Education Program recommends the following ranges for LDL Cholesterol: Optimal under 100 mg/dl Near or above Optimal 100 - 129 mg/dl Borderline High 130 - 159 mg/dl High 160 - 189 mg/dl Very High above 190 mg/dl 28 Triglyceride Risk Levels: Normal : <150 mg/dl Borderline : 150-199 mg/dl High : 200-499 mg/dl Very High : >500 mg/dl 29 LDL/HDL Risk Ratio Levels MALE FEMALE 1/2 X Average 1.00 1.47 Average 3.55 3.22 2 X Average 6.25 5.03 3 X Average 7.99 6.14 30 CHOL/HDL Risk Ratio Levels MALE FEMALE 1/2 X Average 3.4 3.3 Average 5.0 4.4 2 X Average 9.5 7.0 3 X Average 24.0 11.0 31 ---- RUN DATE: 03/15/07 [facility] NMI LIVE PAGE 1 RUN TIME: 1305 Specimen Inquiry RUN USER: INTERFACE [id number] GAYLA FARIAS 66/M <REG REF 03/13> ([id number]) [facility] Era GALAVIZ,Ammon Dietz -- Specimen: [id number] SOUT Spec Date: 03/13/07 [facility] Dr: Gayla landis MD Spec Type: SURGICAL P Received: 03/14/07-9258 Copies to: Alo Boo MD SPECIMEN 1) LESION EXCISED FROM LATERAL RIGHT UPPER EYELID 2) LESION EXCISED FROM LEFT UPPER EYELID LATERAL HISTORY PRE-OP DIAGNOSIS: Papilloma CLINICAL INFORMATION: 1) Skin colored, raised lesion near right eyelid fo r unknown duration, 2) skin colored, raised lesion lateral to left eyelid for un known duration GROSS DESCRIPTION 1) The specimen is received in formalin labelled Gayla Farias, Papilloma Right Upper Eyelid, and consists of a single, 0.3 cm. unoriented hernandez nodule. Total, one block. 2) The specimen is received in formalin labelled Gayla Farias, Papilloma Left Upper Eyelid, and consists of a single, 0.6 x 0.4 x 0.4 cm. finely papillary elliptical shaped portion of white skin. The specimen is serially sectioned in the short axis and submitted in one block. DIAGNOSIS 1) Skin, lateral right upper eyelid, biopsy - Benign squamous papilloma. 2) Skin, left upper eyelid, excision - Benign squamous papilloma. Signed Electronically by: MICHAEL STARR MD 03/15/07 1305 -- -- DEPARTMENT OF PATHOLOGY, [address] [place] [address] [facility] Permit #[id number] Anup Samuels II, M.D. Director Michael Starr M.D. Wildlife Technician D irector -- 32 fasting 33 Cholesterol Risk Levels (NIH) Recommended: under 200 mg/dl Borderline : 200-239 mg/dl High Risk : Above 240 mg/dl . 34 The National Cholesterol Education Program recommends the following ranges for LDL Cholesterol: Optimal under 100 mg/dl Near or above Optimal 100 - 129 mg/dl Borderline High 130 - 159 mg/dl High 160 - 189 mg/dl Very High above 190 mg/dl . 35 Triglyceride Risk Levels: Normal : <150 mg/dl Borderline : 150-199 mg/dl High : 200-499 mg/dl Very High : >500 mg/dl . 36 LDL/HDL Risk Ratio Levels MALE FEMALE 1/2 X Average 1.00 1.47 Average 3.55 3.22 2 X Average 6.25 5.03 3 X Average 7.99 6.14 . 37 CHOL/HDL Risk Ratio Levels MALE FEMALE 1/2 X Average 3.4 3.3 Average 5.0 4.4 2 X Average 9.5 7.0 3 X Average 24.0 11.0 . 38 . Serum PSA results should be used only in conjunction with information available from the clinical evaluation of the patient and other diagnostic procedures. Values obtained with different assay methods or kits cannot be used interchangeably. Results obtained using [employer] ICMA methodology. . 39 mL/min/1.73m2 . Normal Function or Mild Renal Disease, if clinically at risk: >or=60 Moderately decreased: 30 - 59 Severely decreased: 15 - 29 Renal Failure: <15 . Please note that the MDRD equation requires an additional adjustment for -Americans (multiply the GFR result by 1.210). . Glomerular Filtration Rate (GFR) is estimated based on the MDRD equation, which assumes a steady state for creatinine (Gayathri Int Med 139/2 137-149, 2003), as recommended by the National Kidney Disease Education Program in conjunction with the National Institutes of Health and the National Kidney Foundation. . Clinical conditions in which it may be necessary to measure GFR by using clearance methods include extremes of age and body size, severe malnutrition or obesity, diseases of skeletal muscle, paraplegia or quadriplegia, vegetarian diet, rapidly changing kidney function, and calculation of the dose of potentially toxic drugs that are excreted by the kidneys. . Procedures Date CPT Code Description Status Comment 02/16/2017 88840 Electrocardiogram Complete Completed 08/14/2012 Colonoscopy Completed normal 04/21/2008 53506 Electrocardiogram Complete Completed 06/25/2007 39139 Electrocardiogram Complete Completed 07/25/2005 90256 Electrocardiogram Complete Completed Encounters Type Date Location Provider CPT E/M Dx Office Visit 06/05/2017 10:40a [facility] Alo Boo M.D. 93969 I67.89 I10 E78.4 Z23 Office Visit 03/23/2017 2:40p [facility] Alo Boo M.D. 06230 I67.89 N40.1 I44.7 I73.9 Office Visit 02/16/2017 3:20p [facility] Office Alo Boo M.D. 73141 I67.89 N40.1 E78.4 I44.7 I10 Office Visit 01/17/2017 3:00p [facility] Office Alo Boo M.D. 60251 I67.89 E78.4 I73.9 N40.1 Office Visit 12/06/2016 2:40p [facility] Office Alo Boo M.D. 40053 E78.4 I67.89 N40.1 M25.561 I73.9 G47.09 Office Visit 10/24/2016 2:40p [facility] Alo Boo M.D. 04970 I67.89 I10 E78.4 N40.1 Office Visit 10/05/2016 11:00a [facility] Office Alo Boo M.D. 65359 M62.81 I10 N40.1 Office Visit 03/02/2015 4:00p [facility][1] Office Alo Boo M.D. 51071 728.87 401.9 Office Visit 04/21/2008 11:30a [facility][1] Office Alo Boo M.D. 90567 272.4 600.00 278.00 V76.41 V72.83 Office Visit 06/25/2007 1:40p [facility][1] Office Alo Boo M.D. 58779 V04.81 272.4 600.00 V17.3 278.00 401.9 V70.0 V19.4 V76.41 V06.5 V03.82 V05.8 Office Visit 10/13/2005 9:00a [facility][1] Office Marisela Singer [facility] 77673 V58.3 Office Visit 07/25/2005 2:00p [facility][1] Office Alo Boo M.D. 39559 569.3 600.20 278.00 V70.0 Plan of Care Future Appointment(s):11/27/2017 11:00 am - Alo Boo M.D. at [facility][1] Mbmubj7909/18/2017 10:50 am - Alo Boo M.D. at [facility][1] [id number] - Alo Boo M.D.I67.89 Other cerebrovascular diseaseComments: Patient has an appointment with Dr. Dailey regarding his peripheral vascular disease and carotid disease. We will also order a repeat carotid duplex scan to reassess his right internal carotid stenosis and patient has peripheral arterial studies of the legs sdioiefT78.9 Peripheral vascular disease, unspecifiedComments:consult with Dr. Gillis.4 Other hyperlipidemiaComments: continue present medication,recheck of lipids,liver function [id number] Essential (primary) hypertensionComments:continue current medication, call if bp elevation is persistent above 140/90N40.1 Benign prostatic hyperplasia with lower urinary tract sympComments:Doing well after his transurethral resection of the prostate, continue followup with Dr. Gupta Medication:Note Due To Health IssuesComments:~B_~U_Medication Management~b_~u_ Patient Understands medications he's taking? Yes No Are there Barriers to Adherence? Yes No Has the patient been asked about herbal supplements and therapies, and OTC meds? Yes No Patient was given a prescription for a membership a health club, he was referred to occupational therapy,Follow up:2 months
[2017-08-01] MEDS: diPHENhydraMINE PO* 25 MG PO ONE (22:11)
[2017-08-01] MEDS: predniSONE TAB* 20 MG PO ONE (22:17)
--- NOTE | 2017-08-01 22:20 | UC ---
Salinas Pabon Thomas, scribed for Malinda Null MD on 08/01/17 at 2142 . Skin Complaint HPI - HPI Summary HPI Summary: The patient is a 77 year old male presenting to Urgent Care complaining of a pruritic rash/ hives over his back, chest, arms, and legs that he first noticed yesterday. The rash is not painful. The patient has not applied any topical treatments for the rash or taken any medication for the rash. The patient began taking Flomax about three weeks ago and rash started 2 days ago. The patients states that he did experience more itching after taking the Flomax pill tonight. There are no recent new-onset exposures that may have produced an allergic reaction. No meds or treatment taken. Patient denies difficulty swallowing, lip/tongue/throat swelling, SOB, and CP. Pt states "just the itching " Patients medication reviewed this visit. - History of Current Complaint Chief Complaint: UCSkin Stated Complaint: RASH Hx Obtained From: Patient Onset/Duration: Lasting Days - 1, Still Present, Worse Since - taking Flomax pill tonight Skin Exposure Onset/Duration: Days Ago - 2 Timing: Constant Current Severity: Mild Location: Other - Back, chest, legs, arms Character: Pruritus Aggravating Factor(s): Nothing Alleviating Factor(s): Nothing Associated Signs & Symptoms: Negative: Fever Related History: Other: - Pruritus worse after taking Flomax earlier today - Allergy/Home Medications Allergies/Adverse Reactions: Allergies Allergy/AdvReac Type Severity Reaction Status Date / Time Erythromycin AdvReac Nausea Verified 08/01/17 21:38 Home Medications: Home Medications Tamsulosin CAP* [Flomax CAP*] 0.4 mg PO DAILY 08/01/17 [History Confirmed ] Review of Systems Constitutional: Other - NEGATIVE: fever Skin: Rash Is Patient Immunocompromised?: No All Other Systems Reviewed And Are Negative: Yes PMH/Surg Hx/FS Hx/Imm Hx Previously Healthy: No - Benign Prostatic Hyperplasia, Cerebrovascular Accident Cardiovascular History: Cardiac Disease, Myocardial Infarction GI/ History: Other Other GI/ History: urinary retention Neurological History: CVA Other History Of: Negative For: Anticoagulant Therapy - Surgical History Surgical History: None Surgery Procedure, Year, and Place: [place] [facility] [place]OST[place] SH[place] 2016, BLADDER STONES REMOVED 04/02/17 - Family History Known Family History: Positive: Cardiac Disease - Social History Occupation: Retired Lives: With Family Alcohol Use: None Alcohol Amount: 2 per month Substance Use Type: None Smoking Status (MU): Never Smoked Tobacco - Immunization History Most Recent Influenza Vaccination: fall 2015 Most Recent Tetanus Shot: unknown Most Recent Pneumonia Vaccination: fall 2015 Physical Exam Triage Information Reviewed: Yes Appearance: Well-Appearing, No Pain Distress, Well-Nourished Vital Signs: Initial Vital Signs Temp 98.2 F 08/01/17 21:31 Pulse 65 08/01/17 21:31 Resp 16 08/01/17 21:31 BP 168/83 08/01/17 21:31 Pulse Ox 97 08/01/17 21:31 Vital Signs Reviewed: Yes Eye Exam: Normal Eyes: Positive: Conjunctiva Clear ENT Exam: Normal ENT: Positive: Normal ENT inspection, Hearing grossly normal, Pharynx normal Dental Exam: Normal Neck exam: Normal Neck: Positive: Supple, Nontender, No Lymphadenopathy Respiratory Exam: Normal Respiratory: Positive: Chest non-tender, Lungs clear, Normal breath sounds, No respiratory distress, No accessory muscle use Cardiovascular Exam: Normal Cardiovascular: Positive: RRR, No Murmur, Other: - 1+ edema b/l ankles Abdominal Exam: Normal Abdomen Description: Positive: Nontender, No Organomegaly, Soft Bowel Sounds: Positive: Present Musculoskeletal Exam: Normal Neurological Exam: Normal Neurological: Positive: Alert Psychological Exam: Normal Skin: Positive: rashes, Other - Pt with hive chest, back upper ext patchy clusters of hives no blister no ulceration pruruitic Course/Dx - Course Course Of Treatment: Blood pressure noted and patient informed of follow up with PCP. Pt with rash appearing hives chest, abd, back, ext. pt without new exposures except new medication. review of literature regarding floamx + hive like rash possible side effect. recommend no additional flomax until d/w Dr. Arroyo. benadryl prn - no ambien with benadryl - recommend 25mg only. prednisone. avoid heat, NSAIDS. return precautions - Diagnoses Provider Diagnoses: hives. likely medication reaction Discharge - Discharge Plan Condition: Stable Disposition: HOME Prescriptions: predniSONE TAB* [Deltasone TAB*] 40 mg PO DAILY #8 tab Patient Education Materials: Urticaria (ED), Adverse Drug Reaction (ED) Referrals: Alo Boo MD [Primary Care Provider] - Additional Instructions: The doctor that evaluated you today in concerned you are having a reaction to your medication - FLomax REcomendations are as follows: DO NOT TAKE AMBIEN WHILE TAKING BENADRYL - this may cause excess sedation. - Take prednisone exactly as prescribed until gone - - Okay to take Benadryl (1- tablets) 25mg every 8 hours as needed for itching. This medication may cause drowsiness - do NOT drive, operate machinery or drink alcohol while taking Benadryl -Avoid getting over heated (hot showers, hot tubs, exercise) for at least 48 hours - Try to avoid aspirin, NSAIDs (Motrin, Aleve, Naprosyn) for 2-3 days - Okay to apply cool compresses to the area of injury -Contact Dr. Arroyo tomorrow to discuss you possible medication reaction - it is recommended you do not take Flomax again until you have this discussion -Contact your doctor, go to the emergency department, or call 911 if you have difficulty breathing, facial or mouth swelling, or any other questions or concerns The documentation as recorded by the Salinas thomas Thomas accurately reflects the service I personally performed and the decisions made by me, Malinda Null MD.
== END 2017-08-01 22:29 | disposition home or self-care (01) ==
LOC: UCEAST 21:19
DX: L50.9 Urticaria, unspecified (principal); N40.0 Benign prostatic hyperplasia without lower urinary tract symptoms; Z86.73 Personal history of transient ischemic attack (TIA), and cerebral infarction without residual deficits; I25.2 Old myocardial infarction; Z88.1 Allergy status to other antibiotic agents
CPT/HCPCS: 99212; A9270-GY; G0463; J7512

== ENCOUNTER 2019-05-12 21:32 | Observation (INO) | payer BC ==
[2019-05-12] MEDS ORDERED: Ondansetron INJ* 2 MG/ML VIAL IV ONE (21:37)
[2019-05-12] MEDS ORDERED: Tetan/Diph/Pertus SYR(Tdap)* 0.5 ML SYR(BOOSTRIX) use SYR contains LATEX IM ONE (21:37)
[2019-05-12 22:07] LABS: ABS Basophils 0.1 10^3/ul (0-0.2); ABS Eosinophils 0.4 10^3/ul (0-0.6); ABS Lymphocytes 1.6 10^3/ul (1.0-4.8); ABS Monocytes 0.5 10^3/ul (0-0.8); ABS Neutrophils 5.4 10^3/ul (1.5-7.7); Eosinophil % 5.2 %; Hematocrit 42 % (42-52); Hemoglobin 14.4 g/dL (14.0-18.0); Lymphocyte % 20.1 %; Mean Corpuscular HGB Conc 35 g/dL (31-36); Mean Corpuscular Hemoglobin 32 pg (27-31); Mean Corpuscular Volume 94 fL (80-94); Mean Platelet Volume 9.6 fL (7.4-10.4); Platelet Count 145 10^3/uL (150-450); Red Blood Count 4.45 10^6 /uL (4.18-5.48); Red Cell Distribution Width 14 % (10-15)
[2019-05-12 22:12] LABS: INR 1.2 (0.82-1.09)
[2019-05-12 22:24] LABS: Albumin 4.2 g/dL (3.2-5.2); Albumin/Globulin Ratio 1.2 (1-3); BUN/Creatinine Ratio 23.9 (8-20); Calcium 9.1 mg/dL (8.6-10.3); EGFR African American 79.4 (>60); EGFR Non-African American 65.6 (>60); Globulin 3.4 g/dL (2-4); Total Bilirubin 0.4 mg/dL (0.2-1.0); Total Protein 7.6 g/dL (6.4-8.9)
[2019-05-12 22:25] LABS: Troponin I 0.01 ng/mL (<0.04)
[2019-05-12 22:54] LABS: Potassium 3.9 mmol/L (3.5-5.0)
--- NOTE | 2019-05-12 23:49 | ED ---
Neurological HPI - HPI Summary HPI Summary: This patient is a 78 year old M w hx stroke 2 years ago, valvular disease, carotid stenosis presenting to [facility] via EMS with a chief complaint of a fall since a 2 hours ago. Pt states he was walking with his cane, felt nauseas, and then the next thing he remembers was waking up on the ground. Patient's states he started coughing/choking, then got up w cane and she saw him fall. Unclear syncope (possibly brief). Prior to falling, pt reports an episode of feeling "disoriented" with blurry vision at approx 8:45 which resolved. Patient reports nausea denies CP. Patient denies YATES. Pt has hx of stroke for which his symptom was nausea and vertigo (denies vertigo currently). Pt is currently on aspirin. He has not had any surgeries. - History of Current Complaint Chief Complaint: EDFall Stated Complaint: FALL PER EMS Time Seen by Provider: 05/12/19 21:35 Hx Obtained From: Patient, EMS Onset/Duration: Sudden Onset, Started hours ago - 2 Timing: Sudden Onset Onset Severity: Moderate Current Severity: Moderate Pain Intensity: 0 Pain Scale Used: 0-10 Numeric Syncope Context: Activity - walking Aggravating: Nothing Alleviating: Nothing Associated Signs and Symptoms: Positive: Nausea/Vomiting. Negative: Headache - Additional Pertinent History Primary Care Physician: ZEYAD - Allergy/Home Medications Allergies/Adverse Reactions: Allergies Allergy/AdvReac Type Severity Reaction Status Date / Time erythromycin base Allergy Nausea Verified 05/12/19 21:57 PMH/Surg Hx/FS Hx/Imm Hx Previously Healthy: No Endocrine/Hematology History: Denies: Hx Anticoagulant Therapy, Hx Diabetes Cardiovascular History: Reports: Hx Hypercholesterolemia, Hx Hypertension Denies: Hx Angina, Hx Coronary Artery Disease, Hx Myocardial Infarction, Hx Pacemaker/ICD, Hx Valvular Heart Disease, Other Cardiovascular Problems/ Disorders Respiratory History: Reports: Hx Asthma - age [age], ok now Denies: Hx Chronic Obstructive Pulmonary Disease (COPD), Other Respiratory Problems/Disorders GI History: Denies: Other GI Disorders History: Reports: Hx Benign Prostatic Hyperplasia, Other Problems/ Disorders - urinary retention, bph, Denies: Hx Renal Disease Musculoskeletal History: Reports: Hx Arthritis - right knee Denies: Other Musculoskeletal History Sensory History: Reports: Hx Cataracts - dennis, Hx Contacts or Glasses - glasses, Hx Hearing Aid - DOESN'T WEAR ALL THE TIME Opthamlomology History: Reports: Hx Cataracts - dennis, Hx Contacts or Glasses - glasses Psychiatric History: Denies: Hx Panic Disorder - Surgical History Surgical History: Yes Surgery Procedure, Year, and Place: [place] cataracts 2011, [facility]. PROSTATE SHAVE 2016, BLADDER STONES REMOVED 04/02/17 Hx Anesthesia Reactions: No - Immunization History Date of Tetanus Vaccine: unk Date of Influenza Vaccine: fall 2015 Infectious Disease History: No Infectious Disease History: Denies: Traveled Outside the [place] in Last 30 Days - Family History Known Family History: Positive: Cardiac Disease - Social History Alcohol Use: Occasionally Alcohol Amount: 2 per month Hx Substance Use: No Substance Use Type: Reports: None Hx Tobacco Use: No Smoking Status (MU): Never Smoked Tobacco Review of Systems Constitutional: Other - positive - fall Positive: Blurred Vision Positive: Nausea Negative: Headache All Other Systems Reviewed And Are Negative: Yes Physical Exam - Summary Physical Exam Summary: Constitutional: Well-developed, Well-nourished, Alert. (-) Distressed Skin: Warm, Dry. Abrasion to left forehead HENT: Normocephalic; Atraumatic Eyes: Conjunctiva normal Neck: Musculoskeletal ROM normal neck. (-) JVD, (-) Stridor, (-) Nuchal rigidity Cardio: Rhythm regular, rate normal, Heart sounds normal; Intact distal pulses; Radial pulses are 2+ and symmetric. (-) Murmur Pulmonary/Chest wall: Effort normal. (-) Respiratory distress, (-) Wheezes, (-) Rales Abd: Soft, (-) tenderness, (-) Distension, (-) Guarding, (-) Rebound Musculoskeletal: (-) Edema Lymph: (-) Cervical adenopathy Neuro: Alert, Oriented x3, CN 2-12 grossly intact. No dysmetria. Strength 5/5 BLE BUE. SILT. Psych: Mood and affect Normal Triage Information Reviewed: Yes Vital Signs On Initial Exam: Initial Vitals Temp Pulse Resp BP Pulse Ox 97.9 F 80 18 179/85 96 05/12/19 21:54 05/12/19 21:54 05/12/19 21:54 05/12/19 21:54 05/12/19 21:54 Vital Signs Reviewed: Yes Diagnostics - Vital Signs Vital Signs Temp Pulse Resp BP Pulse Ox 05/12/19 23:00 73 26 96 05/12/19 22:54 77 20 175/79 97 05/12/19 22:24 78 163/87 97 05/12/19 22:13 82 96 05/12/19 21:55 81 179/85 97 05/12/19 21:54 97.9 F 81 18 179/85 96 - Laboratory Lab Results: Lab Results 05/12/19 05/12/19 05/12/19 Range/Units 21:58 21:58 21:58 WBC 8.0 (3.5-10.8) 10^3/uL RBC 4.45 (4.18-5.48) 10^6 /uL Hgb 14.4 (14.0-18.0) g/dL Hct 42 (42-52) % MCV 94 (80-94) fL MCH 32 H (27-31) pg MCHC 35 (31-36) g/dL RDW 14 (10-15) % Plt Count 145 L (150-450) 10^3/uL MPV 9.6 (7.4-10.4) fL Neut % (Auto) 67.8 % Lymph % (Auto) 20.1 % Morris % (Auto) 6.1 % Eos % (Auto) 5.2 % Baso % (Auto) 0.8 % Absolute Neuts (auto) 5.4 (1.5-7.7) 10^3/ul Absolute Lymphs (auto) 1.6 (1.0-4.8) 10^3/ul Absolute Monos (auto) 0.5 (0-0.8) 10^3/ul Absolute Eos (auto) 0.4 (0-0.6) 10^3/ul Absolute Basos (auto) 0.1 (0-0.2) 10^3/ul Absolute Nucleated RBC 0.0 10^3/ul Nucleated RBC % 0.0 INR (Anticoag Therapy) 1.20 H (0.82-1.09) Sodium 140 (135-145) mmol/L Potassium 3.9 (3.5-5.0) mmol/L Chloride 107 (101-111) mmol/L Carbon Dioxide 26 (22-32) mmol/L Anion Gap 7 (2-11) mmol/L BUN 26 H (6-24) mg/dL Creatinine 1.09 (0.67-1.17) mg/dL Est GFR ( Amer) 79.4 (>60) Est GFR (Non-Af Amer) 65.6 (>60) BUN/Creatinine Ratio 23.9 H (8-20) Glucose 120 H (70-100) mg/dL Calcium 9.1 (8.6-10.3) mg/dL Magnesium 2.0 (1.9-2.7) mg/dL Total Bilirubin 0.40 (0.2-1.0) mg/dL AST 27 (13-39) U/L ALT 27 (7-52) U/L Alkaline Phosphatase 47 (34-104) U/L Troponin I 0.01 (<0.04) ng/mL Total Protein 7.6 (6.4-8.9) g/dL Albumin 4.2 (3.2-5.2) g/dL Globulin 3.4 (2-4) g/dL Albumin/Globulin Ratio 1.2 (1-3) Result Diagrams: 05/12/19 21:58 05/12/19 21:58 Lab Statement: Any lab studies that have been ordered have been reviewed, and results considered in the medical decision making process. - Radiology CXR Radiology Interpretation Completed By: ED Physician Summary of Radiographic Findings: Impression: No new infiltrates, similar to prior. - CT Brain CT Interpretation Completed By: Radiologist Summary of CT Findings: IMPRESSION: 1) No acute intracranial pathology is appreciated. 2) Chronic atrophic and microischemic changes are noted. 3) Some progression of atrophy is noted over the past 2.5 years. These findings were reviewed by Dr. Hines. Cervical Spine CT Interpretation Completed By: Radiologist Summary of CT Findings: IMPRESSION: No acute findings. Advanced multilevel degenerative changes. These findings were reviewed by Dr. Hines. - EKG 2224 Cardiac Rate: NL - 79 BPM EKG Rhythm: Sinus Rhythm Summary of EKG Findings: EKG at 2224 shows 79 BPM, sinus rhythm, old LBBB, no STEMI Course/Dx - Course Course Of Treatment: 78-year-old male with a history of stroke, hypertension presents with syncope, LOC, and vomiting. Hypertensive to 200s on EMS arrival, BP 170 in ED. Patient reporting nausea denies headache. No chest pain. Check a brain C-spine CT, syncope workup including EKG, troponin, electrolytes. DDx includes cardiac causes, TIA, vasovagal from coughing. Likely would benefit from tele monitoring overnight. Tetanus UTD, wound cleaned - Diagnoses Provider Diagnoses: Syncope - Physician Notifications Discussed Care Of Patient With: Tigist Kent Time Discussed With Above Provider: 23:43 Instructed by Provider To: Other - Dr. Kent agrees to admit pt. Discharge ED - Sign-Out/Discharge Documenting (check all that apply): Patient Departure - admit Patient Received Moderate/Deep Sedation with Procedure: No - Discharge Plan Condition: Stable Disposition: ADMITTED TO [facility] - Billing Disposition and Condition Condition: STABLE Disposition: Admitted to [facility] - Attestation Statements Document Initiated by Maria Mibe: Yes Documenting Scribe: Olvin Syed Provider For Whom Estefani is Documenting (Include Credential): Dr. Genia Hines MD Scribe Attestation: Olvin Pabon, scribed for Dr. Genia Hines MD on 05/13/19 at 0710. Scribe Documentation Reviewed: Yes Provider Attestation: The documentation as recorded by the Olvin thomas accurately reflects the service I personally performed and the decisions made by me, Dr. Genia Hines MD Status of Scribe Document: Viewed
[2019-05-13] MEDS ORDERED: Acetaminophen TAB* 325 MG PO PRN (00:18)
[2019-05-13] MEDS ORDERED: Ondansetron INJ* 2 MG/ML VIAL IV PRN (00:18)
[2019-05-13] MEDS ORDERED: NS 0.9% 1000 ML** 1,000 ML IV SCH (00:30)
[2019-05-13] MEDS ORDERED: Atorvastatin* 40 MG TAB PO ONE (00:37)
--- NOTE | 2019-05-13 02:55 | HP ---
CC: Dr. Boo; Dr. Corral; Dr. Colindres from [facility] Vascular Surgery Department from [place] * HISTORY AND PHYSICAL: DATE OF ADMISSION: 05/13/19 PRIMARY CARE PROVIDER: Dr. Boo. CHIEF COMPLAINT: Status post fall, nausea, blurry vision. HISTORY OF PRESENT ILLNESS: Amadou Kamara is a 78-year-old male with a history of cerebellar stroke in 2017. Since then he had been having unsteady gait, but he is able to ambulate by himself with the exception of using a cane or a walker when he goes outside to a restaurant or longer distances. He stated that he walks on a daily basis without any issues. As a consequence of his stroke, his right leg was weaker but that resolved. The patient stated that he had [employer] today and after dinner he was sitting on a couch and all of a sudden he stated he had 15 seconds of blurry vision. He felt weak at that point and he called out to his . Stated that he stood up and walked for a while and the symptom resolved. Subsequently, he sat down on a couch again and at that point he started feeling nauseated. He grabbed his cane since he felt unwell and unsteady on his feet and started walking towards the bathroom to vomit. He fell on the way to the bathroom. He continued to be nauseated and he eventually vomited in the ambulance after his called 911. Once again, the patient stated that his blurry vision lasted approximately 15 seconds. He stated that he remembers falling down and he did not pass out. He does not remember focal weakness, problems with speech, or any other neuro deficit. He presented to the ED, his nausea resolved, but he once again vomited in the CT suite. Currently, he has no further nausea. He denies abdominal pain. His NIH scale is 0. He is going to be placed on overnight observation with a diagnosis of fall to rule out TIA. PAST MEDICAL HISTORY: 1. History of cerebral CVA in 2017. 2. History of bilateral carotid disease, right carotid of 70% to 90% and left carotid of 50% to 70%. 3. History of hypertension. 4. History of BPH status post TURP. 5. History of left bundle branch block. MEDICATIONS: At home include: 1. Aspirin 81 mg daily. 2. Plavix 75 mg daily. 3. Lipitor 40 mg at bedtime. 4. Norvasc 5 mg daily. 5. Ambien ER 6.25 mg at bedtime p.r.n. ALLERGIES: ERYTHROMYCIN. FAMILY HISTORY: Mother at 99 with a history of breast cancer. Father in his 60s secondary to heart disease. SOCIAL HISTORY: The patient denies any tobacco, alcohol, or drug use. He lives with his who is his healthcare proxy. He is a full code. REVIEW OF SYSTEMS: Please see history of present illness. All the remaining 12 systems were reviewed with the patient and were otherwise negative. PHYSICAL EXAMINATION GENERAL: The patient is a very pleasant 78-year-old male who is somewhat forgetful, but in no acute distress. Alert, awake, and oriented x3. VITAL SIGNS: Blood pressure of 175/75, heart rate of 73 beats per minute and regular, respiratory rate 17, oxygen saturation 97% on room air, temperature of 97.9. HEENT: Head atraumatic and normocephalic. Eyes pupils are equal and reactive to light and accommodation. Oropharynx clear. Mucosa moist. NECK: Supple. No JVD. No bruits bilaterally. RESPIRATORY: Clear to auscultation bilaterally. CARDIOVASCULAR: Regular rate and rhythm. No murmur. ABDOMEN: Soft and nontender. Bowel sounds present in all 4 quadrants. EXTREMITIES: There is bilateral +1 pitting pedal edema. Pulses +2 bilaterally. No clubbing or cyanosis. NEUROLOGIC: Speech is clear. Cranial nerves II through XII grossly intact. Motor strength is 5/5 bilaterally. The patient's gait is wide with short- shuffling steps. As per the patient and the patient's that is his baseline. Speech is clear. [id number] is not dysmetric. Babinski's sign negative bilaterally. SKIN: On evaluation of skin no ecchymotic areas or rashes noted. DIAGNOSTIC STUDIES/LAB DATA: Showed a white blood cell count of 8.0, hemoglobin of 14.4, hematocrit of 42, and platelets of 145. Sodium was 140, potassium 3.9, chloride 107, carbon dioxide 26, BUN 26, creatinine 1.09. Liver function tests unremarkable. Glucose was 120. Troponin of 0.01. The patient's EKG showed known left bundle branch block. Portable chest x-ray is being reviewed by myself prior to the official radiologist report and shows no acute cardiothoracic disease. Brain CT, impression: "No acute intracranial pathology is appreciated. Chronic vascular ischemic changes noted. Some progression of atrophy noted for the past 2.5 years." ASSESSMENT AND PLAN: 1. An episode of fall, blurry vision, nausea, and vomiting. It is possible that the patient's neuro symptoms and fall are all due to his nausea and vomiting. He may have had food poisoning. Currently, he has no further symptoms. Another possibility is that all of the symptoms are related to transient ischemic attack. He has had cerebral stroke in the past and he has a history of significant carotid disease. At this point, the patient is going to be placed on overnight observation. He is going to be placed on full liquid diet. Neuro checks are going to be checked on every 2 hours. Aspirin and Plavix are going to be continued. An MRI of the brain is going to be obtained in the morning and if that shows any new abnormalities further workup including CT angiogram of the head and neck should be initiated. 2. For dyslipidemia fasting lipid profile is going to be obtained. 3. For the patient's hypertension, we will hold the patient's amlodipine to start permissive hypertension. 4. The patient's code status is full. His surrogate is his . 5. For DVT prophylaxis. Heparin subcutaneously is going to be provided. TIME SPENT: Approximately 62 minutes was spent on the admission of this patient , more than half that time was spent [id number] with the patient during the interview and physical exam. [id number]/[facility] #: [id number] CARTERD
[2019-05-13] MEDS: Heparin VIAL(*) 5000 UNITS/ML VIAL (FIVE THOUSAND) SUBCUT SCH ×3 (05:42→21:14)
[2019-05-13 06:54] LABS: HDL Cholesterol 50.8 mg/dL
[2019-05-13] MEDS: Clopidogrel TAB* 75 MG PO SCH (08:32)
[2019-05-13] MEDS: Aspirin EC TAB* 81 MG TAB.EC PO SCH (08:32)
--- NOTE | 2019-05-13 08:48 | PN ---
Hospitalist Progress Note Date of Service: 05/13/19 Subjective- Pt is feeling ready to go home with no complaints no overnight events vitals temp-97. 8 heart rate-70 resp. rate-16 o2 sat-96 BP 162/75(03/10) Dzma-qlszkfi-kfow appearing EENT-oropharynx clear, mucosa moist, normocephalic Lungs--bilateral lungs clear to auscultation Heart-s1,2 reg rate rhytm Neuro- CN 2-12 intact, Bilateral strength is 5/5 and sensation is intact. no new labs- mch-32 plt-145 inr-120 bun-26 bun/creat-23.9 glucose-120 lying and standing BP of 160/80 ekg-LBBB chest x-ray-no acute changes brain CT/cervical spine CT- no acute intracranial path.. 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 Kamara is a 78 yr ol;d male w past med hx of cerbral strokes in 2017, bilateral carotid disease right (70-90% stenos) left(50-90% sten) , htn, bph post TURP, hx of LBBB. presented with nausea vomiting and blurry vision(15 seconds) and a fall w/ no loss of consciousness. 1.)nausea,vomiting, and fall differential of TIA, orthostatic or vasovagal syncope -obtain MRI and CTa -orthostatic BP obtained-160/80 standing and lying -atorvastatin(40mg PO) and heparin (5,000 units subcut Q8hrs) -on aspirin(81) and plavix(75 mg daily) -ondancestron-4mg iv q4hrs 2.)Hyperlipidemia -Atorvastatin 40mg PO daily 3.)HTN-no meds hold amlodipines 4.)DVT prophylaxis -heparin 5,000 units subcut. Q8hrs.
[2019-05-13] MEDS ORDERED: amLODIPine TAB* 5 MG PO SCH (09:00)
[2019-05-13] MEDS ORDERED: Iohexol 350* (CONTRAST) 500 ML MDV IV ONE (11:28)
--- NOTE | 2019-05-13 14:10 | PN ---
Subjective Date of Service: 05/13/19 Interval History: Patient had no more recurrence of visual symptoms, no numbness or weakness. History revisited, He was able to walk on the street near his house without assistance. Patient had his dinner and sat for TV shows, when he had kaleidoscopic kind of vision, he described "colors flow through his eyes" for 60 min. He fell down while he was using his cane, he felt strange that time with his cane. It resolved but recurred again later. Otherwise no diplopia, no muscle weakness, no numbness. Objective Active Medications: Acetaminophen (Tylenol Tab*) 650 mg PO Q4H PRN PRN Reason: PAIN-MILD/TEMP >/= 100.4 Aspirin (Aspirin Ec Tab*) 81 mg PO DAILY [facility] Last Admin: 05/13/19 08:32 Dose: 81 mg Atorvastatin Calcium (Lipitor*) 40 mg PO BEDTIME [facility] Clopidogrel Bisulfate (Plavix Tab*) 75 mg PO QAM [facility] Last Admin: 05/13/19 08:32 Dose: 75 mg Heparin Sodium (Porcine) (Heparin Vial(*)) 5,000 units SUBCUT Q8HR [facility] Last Admin: 05/13/19 13:36 Dose: 5,000 units Sodium Chloride (Ns 0.9% 1000 Ml) 1,000 mls @ 75 mls/hr IV PER RATE [facility] Ondansetron HCl (Zofran Inj*) 4 mg IV Q4H PRN PRN Reason: NAUSEA/VOMITING Vital Signs - 8 hr 05/13/19 05/13/19 05/13/19 07:28 08:00 12:45 Temperature 97.8 F 98.3 F Pulse Rate 70 65 Respiratory 16 16 16 Rate Blood Pressure 162/75 161/73 (mmHg) O2 Sat by Pulse 96 96 Oximetry Oxygen Devices in Use Now: None Exam: General -well, not in acute distress Eyes - PERRLA, EOM intact HEENT- no abnormality, no bruits Lymph Nodes - No lymphadenopathy Cardiovascular -regular, no m/r/g, no JVD, no carotid bruits Lungs - lung clear, no use of acessory muscles, no crackles or wheezes. Skin - No rashes, skin warm and dry, no erythematous areas Abdomen - Normal bowel sounds, abdomen soft and non tenderness. Extremities -No cyanosis or clubbing over bilateral upper extremities, no peripheral edema Musculo Skeletal - 5/5 strength, normal range of motion, no swollen or erythematous joints. Neurological Alert and oriented x 3, CN 2-12 grossly intact, right mild pronator drift. Psychiatry-mood stable. Result Diagrams: 05/12/19 21:58 05/12/19 21:58 Additional Lab and Data: Lab Results 05/12/19 05/12/19 05/12/19 Range/Units 21:58 21:58 21:58 WBC 8.0 (3.5-10.8) 10^3/uL RBC 4.45 (4.18-5.48) 10^6 /uL Hgb 14.4 (14.0-18.0) g/dL Hct 42 (42-52) % MCV 94 (80-94) fL MCH 32 H (27-31) pg MCHC 35 (31-36) g/dL RDW 14 (10-15) % Plt Count 145 L (150-450) 10^3/uL MPV 9.6 (7.4-10.4) fL Neut % (Auto) 67.8 % Lymph % (Auto) 20.1 % Woodruff % (Auto) 6.1 % Eos % (Auto) 5.2 % Baso % (Auto) 0.8 % Absolute Neuts (auto) 5.4 (1.5-7.7) 10^3/ul Absolute Lymphs (auto) 1.6 (1.0-4.8) 10^3/ul Absolute Monos (auto) 0.5 (0-0.8) 10^3/ul Absolute Eos (auto) 0.4 (0-0.6) 10^3/ul Absolute Basos (auto) 0.1 (0-0.2) 10^3/ul Absolute Nucleated RBC 0.0 10^3/ul Nucleated RBC % 0.0 INR (Anticoag Therapy) 1.20 H (0.82-1.09) Sodium 140 (135-145) mmol/L Potassium 3.9 (3.5-5.0) mmol/L Chloride 107 (101-111) mmol/L Carbon Dioxide 26 (22-32) mmol/L Anion Gap 7 (2-11) mmol/L BUN 26 H (6-24) mg/dL Creatinine 1.09 (0.67-1.17) mg/dL Est GFR ( Amer) 79.4 (>60) Est GFR (Non-Af Amer) 65.6 (>60) BUN/Creatinine Ratio 23.9 H (8-20) Glucose 120 H (70-100) mg/dL Calcium 9.1 (8.6-10.3) mg/dL Magnesium 2.0 (1.9-2.7) mg/dL Total Bilirubin 0.40 (0.2-1.0) mg/dL AST 27 (13-39) U/L ALT 27 (7-52) U/L Alkaline Phosphatase 47 (34-104) U/L Troponin I 0.01 (<0.04) ng/mL Total Protein 7.6 (6.4-8.9) g/dL Albumin 4.2 (3.2-5.2) g/dL Globulin 3.4 (2-4) g/dL Albumin/Globulin Ratio 1.2 (1-3) Assess/Plan/Problems-Billing Assessment: 78 years old male with history of cerebral CVA in 2006, bilateral carotid stenosis (right side 75-90% stenosisis, BPH s/p TURP,aLBB, presented with sudden onset of vision changes and fall. He was investigated for potential TIA. ) - Patient Problems (1) HTN (hypertension) Current Visit: No Status: Acute Code(s): I10 - ESSENTIAL (PRIMARY) HYPERTENSION SNOMED Code(s): 83642993 Comment: BP 161/71mmhg- 179/85mmhg History restart amlodipine watch BP and HTN (2) Hyperlipidemia Current Visit: No Status: Acute Code(s): E78.5 - HYPERLIPIDEMIA, UNSPECIFIED SNOMED Code(s): 94622067 Comment: LDL 61, continue lipitor. (3) DVT prophylaxis Current Visit: No Status: Acute Code(s): TIK4530 - SNOMED Code(s): 508724333 Comment: SQ heparin (4) Full code status Current Visit: No Status: Acute Code(s): Z78.9 - OTHER SPECIFIED HEALTH STATUS SNOMED Code(s): 162570033 (5) Pre-syncope Current Visit: Yes Status: Acute Comment: Patient didn't lose consciousness but he couldn't remember well, kleidoscopic vision with a fall differential include TIA, orthostatic, vasovagal complete MRI brain, CTA today complete orthostatic BP Neurology consult Attestation Documenting Resident: Eitan Supervising Physician: Gaston Attending/Supervising Physician Comment: Agree with plan as outline din today's note by Dr. Laird unless indicated here. 78M presenting with fall and questionable LOC associated with 2 episodes of positive visual symptoms described as "kalaidescope vision" No e/o new CVA, no h/o migraine sor present YATES but did have increased EtOH usage which supports possible new seizure. EEG is pending. Attestation: This service has been performed in part by a resident under the direction of a teaching physician.IGaston, performed the service, or was physically present during the critical, or villa portions of the service, furnished by the resident. I participated in the management of the patient. Addendum entered and electronically signed by Hiral Laird MD 05/13/19 14:37: Subjective Date of Service: 05/13/19 Interval History: New version of progress noted. ignore the above one. Objective Active Medications: Acetaminophen (Tylenol Tab*) 650 mg PO Q4H PRN PRN Reason: PAIN-MILD/TEMP >/= 100.4 Aspirin (Aspirin Ec Tab*) 81 mg PO DAILY [facility] Last Admin: 05/13/19 08:32 Dose: 81 mg Atorvastatin Calcium (Lipitor*) 40 mg PO BEDTIME [facility] Clopidogrel Bisulfate (Plavix Tab*) 75 mg PO QAM [facility] Last Admin: 05/13/19 08:32 Dose: 75 mg Heparin Sodium (Porcine) (Heparin Vial(*)) 5,000 units SUBCUT Q8HR [facility] Last Admin: 05/13/19 13:36 Dose: 5,000 units Sodium Chloride (Ns 0.9% 1000 Ml) 1,000 mls @ 75 mls/hr IV PER RATE [facility] Ondansetron HCl (Zofran Inj*) 4 mg IV Q4H PRN PRN Reason: NAUSEA/VOMITING Vital Signs - 8 hr 05/13/19 05/13/19 05/13/19 07:28 08:00 12:45 Temperature 97.8 F 98.3 F Pulse Rate 70 65 Respiratory 16 16 16 Rate Blood Pressure 162/75 161/73 (mmHg) O2 Sat by Pulse 96 96 Oximetry Oxygen Devices in Use Now: None Exam: General -well, not in acute distress Eyes - PERRLA, EOM intact HEENT- no abnormality, no bruits Lymph Nodes - No lymphadenopathy Cardiovascular -regular, no m/r/g, no JVD, no carotid bruits Lungs - lung clear, no use of acessory muscles, no crackles or wheezes. Skin - No rashes, skin warm and dry, no erythematous areas Abdomen - Normal bowel sounds, abdomen soft and non tenderness. Extremities -No cyanosis or clubbing over bilateral upper extremities, no peripheral edema Musculo Skeletal - 5/5 strength, normal range of motion, no swollen or erythematous joints. Neurological Alert and oriented x 3, CN 2-12 grossly intact, right mild pronator drift. Psychiatry-mood stable. Result Diagrams: 05/12/19 21:58 05/12/19 21:58 Additional Lab and Data: Lab Results 05/12/19 05/12/19 05/12/19 Range/Units 21:58 21:58 21:58 WBC 8.0 (3.5-10.8) 10^3/uL RBC 4.45 (4.18-5.48) 10^6 /uL Hgb 14.4 (14.0-18.0) g/dL Hct 42 (42-52) % MCV 94 (80-94) fL MCH 32 H (27-31) pg MCHC 35 (31-36) g/dL RDW 14 (10-15) % Plt Count 145 L (150-450) 10^3/uL MPV 9.6 (7.4-10.4) fL Neut % (Auto) 67.8 % Lymph % (Auto) 20.1 % Woodruff % (Auto) 6.1 % Eos % (Auto) 5.2 % Baso % (Auto) 0.8 % Absolute Neuts (auto) 5.4 (1.5-7.7) 10^3/ul Absolute Lymphs (auto) 1.6 (1.0-4.8) 10^3/ul Absolute Monos (auto) 0.5 (0-0.8) 10^3/ul Absolute Eos (auto) 0.4 (0-0.6) 10^3/ul Absolute Basos (auto) 0.1 (0-0.2) 10^3/ul Absolute Nucleated RBC 0.0 10^3/ul Nucleated RBC % 0.0 INR (Anticoag Therapy) 1.20 H (0.82-1.09) Sodium 140 (135-145) mmol/L Potassium 3.9 (3.5-5.0) mmol/L Chloride 107 (101-111) mmol/L Carbon Dioxide 26 (22-32) mmol/L Anion Gap 7 (2-11) mmol/L BUN 26 H (6-24) mg/dL Creatinine 1.09 (0.67-1.17) mg/dL Est GFR ( Amer) 79.4 (>60) Est GFR (Non-Af Amer) 65.6 (>60) BUN/Creatinine Ratio 23.9 H (8-20) Glucose 120 H (70-100) mg/dL Calcium 9.1 (8.6-10.3) mg/dL Magnesium 2.0 (1.9-2.7) mg/dL Total Bilirubin 0.40 (0.2-1.0) mg/dL AST 27 (13-39) U/L ALT 27 (7-52) U/L Alkaline Phosphatase 47 (34-104) U/L Troponin I 0.01 (<0.04) ng/mL Total Protein 7.6 (6.4-8.9) g/dL Albumin 4.2 (3.2-5.2) g/dL Globulin 3.4 (2-4) g/dL Albumin/Globulin Ratio 1.2 (1-3) Assess/Plan/Problems-Billing Assessment: 78 years old male with history of cerebral CVA in 2006, bilateral carotid stenosis (right side 75-90% stenosisis), BPH s/p TURP,aLBB, presented with sudden onset of vision changes and fall. He was investigated for potential TIA or orthostatic hypotension. - Patient Problems (1) Pre-syncope Current Visit: Yes Status: Acute Comment: Patient didn't lose consciousness but he couldn't remember well, kleidoscopic vision with a fall differential include TIA, orthostatic, vasovagal complete MRI brain, CTA today complete orthostatic BP Neurology consult (2) HTN (hypertension) Current Visit: No Status: Acute Code(s): I10 - ESSENTIAL (PRIMARY) HYPERTENSION SNOMED Code(s): 60487949 Comment: BP 161/71mmhg- 179/85mmhg History restart amlodipine watch BP and HTN (3) Hyperlipidemia Current Visit: No Status: Acute Code(s): E78.5 - HYPERLIPIDEMIA, UNSPECIFIED SNOMED Code(s): 45147879 Comment: LDL 61, continue lipitor. (4) DVT prophylaxis Current Visit: No Status: Acute Code(s): HFC5117 - SNOMED Code(s): 220798343 Comment: SQ heparin (5) Full code status Current Visit: No Status: Acute Code(s): Z78.9 - OTHER SPECIFIED HEALTH STATUS SNOMED Code(s): 710478323 Status and Disposition: Inpatient Medicine. waiting test done Attestation Documenting Resident: Hiral Laird Supervising Physician: Everardo Feldman Attestation: This service has been performed in part by a resident under the direction of a teaching physician.I, Everardo Feldman, performed the service, or was physically present during the critical, or villa portions of the service, furnished by the resident. I participated in the management of the patient.
--- NOTE | 2019-05-13 17:17 | CONS ---
NEUROLOGY CONSULTATION NOTE: DATE OF SERVICE: 05/13/19 CONSULTING PROVIDER: Dr. Everardo Feldman. REASON FOR CONSULT: Visual obscuration and fall. CHIEF COMPLAINT: Fall after feeling some visual disturbance. HISTORY OF PRESENT ILLNESS: Mr. 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 The patient required approximately 1 year before he was able to walk independently and regained his strength on the right side. The patient is on dual antiplatelet therapy with aspirin and Plavix. He is on Lipitor 40 mg at night. Also has a history of hypertension and bilateral carotid artery disease with narrowing up to 70% on the right ICA and 50% on the left ICA. The patient stated that over the weekend on Monday night he consumed approximately 3/4th of a wine bottle. He typically drinks 2 to 3 glasses of wine every other month. He had an event and met with friends on Monday evening , hence the excess alcohol intake. The patient was not feeling well on Monday. On Monday, he was watching [employer] 60 minutes when he suddenly heard "garbled noises" and then developed a "kaleidoscope pattern of visual disturbance." It was composed of colors and patterns that are similar to what he was watching and seeing on TV. This lasted for approximately 15 seconds. He yelled out. He got up and started walking around. Then 10 minutes later, he sat down, raised his leg on the recliner. Minutes later, he felt odd with some visual obscuration. He does not recall exactly what took place at that time, but he stood up and wanted to take a few step. Subsequently he fell. He stated that the cane he was holding on was not on the floor. He did not feel the rubber tip as it slipped through the floor and that's why he fell. He never lost consciousness. He did not hit his head. His spouse witnessed that the patient was flushed, his arms were contracted, and close to his trunk, and she thought the patient was gagging seconds prior to him standing and falling. This lasted for approximately 10 seconds. The reason he stood up was to try to brush away these symptoms. Currently, the patient is asymptomatic. He was found to have significantly elevated blood pressure on admission, his blood pressure usually ranges 130 to 140 mmHg systolic and never over 89 diastolic. He follows up with Dr. Rodriguez from [facility] team in [place] for his carotid disease. NIH stroke scale today is 0. PAST MEDICAL HISTORY: Stroke in the cerebellum as well in the right right anthony radiata with no residual deficits, bilateral carotid disease, hypertension, BPH, status post TURP, left bundle branch block. MEDICATIONS: Home medications: 1. Atorvastatin 40 mg at bedtime. 2. Zolpidem 1 tablet p.o. at bedtime. 3. Amlodipine 5 mg p.o. in the morning. 4. Clopidogrel 75 mg p.o. in the morning and aspirin 81 mg daily. FAMILY HISTORY: No reported family history of stroke or seizures. His mother of breast cancer at age 99. His father of heart disease. SOCIAL HISTORY: The patient denies tobacco use. He drinks alcohol rarely but did have 3/4th of a wine bottle Monday night. He lives with his who is a healthcare proxy. REVIEW OF SYSTEMS: A 14-point review of systems was obtained and reviewed and otherwise negative except for what was mentioned in the HPI. PHYSICAL EXAM: Vitals: Temperature of 98.3, pulse of 65, respiratory rate of 16, oxygen saturation of 96%, blood pressure of 161/73. Orthostatic blood pressure was done today and the patient had supine hypertension that did not change with upright positioning. General: Well-nourished, well-developed elderly man, in no acute distress. Head: Atraumatic, normocephalic without any obvious abnormality. Neck is supple and symmetric with no carotid bruits. Eyes: Conjunctivae/corneas are clear. Cardiovascular: Regular rate and rhythm with normal S1, S2. Chest: Clear to auscultation bilaterally with no wheezing or rhonchi. Extremities: Normal range of motion with no cyanosis or edema. No hammertoes. Skin: No skin lesions or lacerations. Psych: Affect is broad with normal mood. Easy to establish rapport. Neurological Examination : Mental Status: Awake, alert, oriented to person, place, time, and general circumstances. Speech and language including expression and comprehension were assessed and found to be normal. Short- and long- term memory are intact. Cranial Nerves: Pupils equal, round, and reactive to light, extraocular muscles are intact, no sensory loss in the face, normal facial symmetry, tongue is symmetrical and midline with no atrophy or fasciculation. Motor examination: Motor strength 5/5 strength in upper and lower extremities bilaterally. Normal tone and bulk throughout. Reflexes are 1+ in the right upper and lower extremity and trace in the left upper and lower extremity. Absent at the ankles bilaterally. Flexor plantar response bilaterally. Coordination: Normal mvbmtz-um-dbqf and rqqs-bo-wznk testing bilaterally. Gait: Wide-based gait, required 1 person minimal assist. No ataxia. LABS, IMAGING AND OTHER DIAGNOSTIC TESTING: WBC of 8, hemoglobin of 14.4, hematocrit of 42, platelet count of 145. INR is 1.20. Sodium 140, potassium 3.9, creatinine 1.09. Magnesium 2. LDL was 61. He had a brain CT that was read as unremarkable with a lacunar stroke in the cerebellum on the right with his chronic atrophy. He had a CT cervical spine without contrast that showed no evidence of fractures. He has got advanced multilevel degenerative changes, most pronounced at C5-6 and C6- C7 with moderate spinal canal narrowing. He has multilevel foraminal stenosis. ASSESSMENT AND RECOMMENDATIONS: Mr. Amadou Kamara is a 78-year-old man with a history of hypertension, remote history of stroke in the right cerebellum and right anthony radiata, who presented with symptoms of visual disturbance, flushing, a transient contraction of the arms and hands, followed by a fall. There is no lateralizing neurological deficit. NIH stroke scale of 0. He has no witnessed convulsions. Orthostatic vitals were normal (after he received IV fluids). Based on the clinical history, I suspect the patient may have had either an orthostatic hypotension that resolved after receiving IV fluids. Certain factors including excessive alcohol intake over the weekend and poor diet could potentially play a roll for causing dehydration. The patient did have an elevated BUN and creatinine ratio supporting possible dehydration. Other differential diagnosis include occipital lobe seizures. However, he does not have any risk factors given that his strokes were not involving the occipital lobe. In regards to the kaleidoscope colored pattern of visual disturbance, this is inconsistent with stroke as stroke would typically cause negative phenomenon which includes a black pattern of vision loss or complete one-sided visual defect. I do not think the internal carotid artery stenosis bilaterally is symptomatic. I am concerned that his blood pressure is elevated and that could also be contributing to some of his symptoms as his baseline blood pressure systolically ranged from 130 to <140 mmHg. We have ruled out a stroke on the MRI, as there is no evidence of an acute infarct. We need to rule out any possible epileptiform discharges on EEG. If the EEG is negative, I do not recommend any further treatment other than continued hydration and reducing any kathy drinking habits (the patient had an isolated incident and rarely consumes alcohol). Also control his blood pressure with a goal range of less than 130 and the diastolic of less than 80. Please make sure he is followed up by Vascular Surgery for carotid ultrasound measurement of the stenosis at least every 6 months. I would continue with dual antiplatelet therapy for at least 90 days. Thereafter, he can discontinue aspirin. Furthermore, continue atorvastatin at a dose of 80 mg daily. His most recent LDL was 61. If the EEG does show epileptiform discharges, then I would recommend starting the patient on levetiracetam 500 mg twice daily. I discussed that if he does need to be on levetiracetam, some of the side effects to look for include irritability and agitation. He does not need any PT/OT clearance. Close monitoring by his PCP as well as Outpatient Neurology is recommended. I will arrange a follow up appointment within 6 weeks. I discussed these recommendations with the patient and his spouse. I answered all the appropriate questions. TIME SPENT: 75 minutes, of which more than 50% was spent obtaining history, examining the patient, education, counseling, and discussing the treatment plan as mentioned above. The patient was encouraged to minimize his alcohol intake. This was a one-time incident where he drank excessively over the weekend that may have caused the dehydrated state. I educated the patient on the symptoms of TIA which include but are not limited to weakness, complete visual loss and/ or half of the visual field is affected, or slurred speech, or word-finding difficulty. I encouraged the patient to come back to the hospital immediately if he developed any new neurological symptoms or deficits. ADDENDUM: EEG was normal. I don't recommend any further neurological work-up. Follow-up with vascular surgery as an outpatient. I will sign off. [id number]/[facility] #: [id number] [facility]OSPITALSailaja
[2019-05-13] MEDS: amLODIPine TAB* 5 MG PO SCH (17:30)
--- NOTE | 2019-05-13 19:56 | EEG ---
ELECTROENCEPHALOGRAPHY REPORT: DATE OF SERVICE: 05/13/19 - ROOM #[id number] DATE READ: 05/13/19 ORDERED BY: Mirian Gates MD. CLINICAL PROBLEM: Mr. Amadou Kamara is a 78-year-old man with visual obscuration. This EEG was obtained to evaluate for epileptiform discharges predominantly from the occipital region. CLINICAL STATE: Awake state. MEDICATIONS: 1. Amlodipine. 2. Atorvastatin. 3. Heparin. 4. Aspirin. 5. Plavix. 6. Acetaminophen. 7. Ondansetron. REPORT: The waking background showed appropriate organization with clearly defined anterior-posterior voltage and frequency gradients. There was a well- defined posterior dominant rhythm of 10 Hz, which was symmetrical and showed normal reactivity. Anteriorly, there was an expected pattern of lower voltage, irregular, mixed faster frequency. Hyperventilation and photic stimulation were not performed. Single-electrode EKG showed normal sinus rhythm. Throughout the recording, there were no epileptiform discharges. CLINICAL IMPRESSION: This is a normal awake EEG. There were no focal or epileptiform abnormalities. [id number]/[facility] #: [id number] [facility]
[2019-05-13] MEDS ORDERED: Melatonin 3 MG TAB PO PRN (20:00)
[2019-05-13] MEDS ORDERED: Atorvastatin* 40 MG TAB PO SCH (21:00)
[2019-05-14] MEDS: Heparin VIAL(*) 5000 UNITS/ML VIAL (FIVE THOUSAND) SUBCUT SCH ×2 (05:22→13:12)
[2019-05-14 06:55] LABS: ABS Eosinophils 0.4 10^3/ul (0-0.6); ABS Lymphocytes 1.6 10^3/ul (1.0-4.8); ABS Monocytes 0.5 10^3/ul (0-0.8); ABS Neutrophils 5.3 10^3/ul (1.5-7.7); Eosinophil % 4.7 %; Hematocrit 39 % (42-52); Hemoglobin 13.2 g/dL (14.0-18.0); Lymphocyte % 20.3 %; Mean Corpuscular HGB Conc 34 g/dL (31-36); Mean Corpuscular Hemoglobin 32 pg (27-31); Mean Corpuscular Volume 94 fL (80-94); Mean Platelet Volume 10.2 fL (7.4-10.4); Platelet Count 134 10^3/uL (150-450); Red Blood Count 4.13 10^6 /uL (4.18-5.48); Red Cell Distribution Width 15 % (10-15); White Blood Count 7.9 10^3/uL (3.5-10.8)
[2019-05-14 07:13] LABS: BUN/Creatinine Ratio 24.1 (8-20); EGFR Non-African American 85.1 (>60); Potassium 3.8 mmol/L (3.5-5.0)
[2019-05-14] MEDS: Aspirin EC TAB* 81 MG TAB.EC PO SCH (08:37)
[2019-05-14] MEDS: amLODIPine TAB* 5 MG PO SCH (08:37)
[2019-05-14] MEDS: Clopidogrel TAB* 75 MG PO SCH (08:37)
--- NOTE | 2019-05-14 08:39 | PN ---
Hospitalist Progress Note Date of Service: 05/14/19 Subjective- Pt is feeling ready to go home with no complaints no overnight events vitals temp-98.3 heart rate-65 resp. rate-20 o2 sat-99 BP 130/68 Yise-ulapetk-oeih appearing EENT-oropharynx clear, mucosa moist, normocephalic Lungs--bilateral lungs clear to auscultation Heart-s1,2 reg rate rhytm Neuro- CN 2-12 intact, Bilateral strength is 5/5 and sensation is intact. RBC-4.13 Hgb-13.2 Hct-39 MCH-32 Plt count-134 BUN-21 creat-.87 BUN/creat-24.1 EEG-This is a normal awake EEG. There were no focal or epileptiform abnormalities assessment/plan Mr. Kamara is a 78 yr ol;d male w past med hx of cerbral strokes in 2017, bilateral carotid disease right (70-90% stenos) left(50-90% sten) , htn, bph post TURP, hx of LBBB. presented with nausea vomiting and blurry vision(15 seconds) and a fall w/ no loss of consciousness. 1.)nausea,vomiting, and fall differential of TIA, orthostatic or vasovagal syncope, seizure most likely orthostatic hypotension(high bun/creat showed dehydration) due to alcohol that resolved w/ fluids -stroke-rules out via MRI -EEG-normal -atorvastatin(40mg PO) and heparin (5,000 units subcut Q8hrs) -on aspirin(81) and clopidogrel(75 mg daily) -ondancestron-4mg iv q4hrs 2.)Hyperlipidemia(61) -Atorvastatin 40mg PO daily 3.)HTN -Amlodipine 5mg PO Q/am 4.)DVT prophylaxis -heparin 5,000 units subcut. Q8hrs.
[2019-05-14 12:11] VITALS: BP 151/72
--- NOTE | 2019-05-14 13:06 | PN ---
Progress Note - Progress Note Date of Service: 05/14/19 SOAP: I spoke to Dr. Laird. I agree with continuing atorvastatin 40 mg nightly as the patient's LDL is <70. Mirian Gates MD
--- NOTE | 2019-05-15 00:34 | DS ---
CC: Dr. Boo; Dr. Colindres, [facility] Vascular Surgery Department, [place] * DISCHARGE SUMMARY: DATE OF ADMISSION: DATE OF DISCHARGE: PRIMARY CARE PROVIDER: Dr. Boo. DISPOSITION ON DISCHARGE: Home. CONDITION ON DISCHARGE: Good. PRIMARY DIAGNOSES: 1. Visual phenomenon, unknown significance. 2. Bilateral carotid artery disease, right more significant than left. SECONDARY DIAGNOSES: Include: 1. History of cerebrovascular accident. 2. Hypertension. 3. Benign prostatic hyperplasia. 4. Left bundle branch block. MEDICATIONS ON DISCHARGE: Include: 1. Aspirin 81 mg daily. 2. Plavix 75 mg daily. 3. Lipitor 40 mg daily. 4. Amlodipine 5 mg daily. 5. Zolpidem 1 tab at bedtime as needed for insomnia. PERTINENT LABORATORY DATA: Triglycerides 105, cholesterol 133, LDL 61, HDL is 50. 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 Brain MRI, impression: Diffuse involutional changes with chronic small vessel ischemic change, no restricted diffusion to suggest acute infarct. HISTORY OF PRESENT ILLNESS AND HOSPITAL COURSE: This is a 78-year-old man, past medical history as outlined in the history of present illness, on the day of admission, presented to the hospital with 15 seconds of vision that was described as kaleidoscope vision, happened twice, associated fall that was suspicious, was associated with brief loss of consciousness. The patient's description of his kaleidoscope vision was very colorful with flashing, moving colors, notable for positive visual symptoms, we were concerned for seizure. He had an EEG that was negative. Of note, he did have increased alcohol intake the day prior to this event, which we were concerned could have lowered seizure threshold. The patient has no history of seizure and the EEG does not confirm any evidence of seizure. Of note, the patient also walked quite a bit on the day prior to presentation and was a hot day in [place]. Orthostatic hypotension may have been a contributing factor to his loss of consciousness and visual symptoms of unknown significance. He had no other additional symptoms during the course of his hospital stay, was seen in conjunction with Neurology. The patient was discharged on Plavix and aspirin to continue for 3 months as he follows up with Dr. Colindres for further evaluation of his [id number] carotid artery stenosis. There are no complications during this patient's hospital stay. FOLLOWUP INSTRUCTIONS: At followup, please: 1. Decrease and/or stop Plavix after 3 months. 2. Please ensure the patient follows with Dr. Colindres in [place]. 3. No other specific labs or vitals that need followup. Reasons to return to the hospital including, but not limited to, recurrent or worsening symptoms, neurological phenomenon including weakness, numbness, paresthesias, visual phenomenon, chest pain, shortness of breath, loss of consciousness, new loss of consciousness, inability to obtain or tolerate medication, bleeding from any source discussed with the patient and his . They acknowledged understanding. TIME SPENT: Greater than 60 minutes was spent on the discharge of this patient , greater than half was spent [id number] with the patient. [id number]/CPS #: [id number] UMER
== END 2019-05-14 15:00 | disposition home or self-care (01) ==
LOC: ED 21:32 → MEDTELE 05-13 00:18
PROVIDERS: ADMIT Internal Medicine; ATTEND Internal Medicine
DX: H53.10 Unspecified subjective visual disturbances (principal); I65.23 Occlusion and stenosis of bilateral carotid arteries; Z86.73 Personal history of transient ischemic attack (TIA), and cerebral infarction without residual deficits; Z79.899 Other long term (current) drug therapy; N40.0 Benign prostatic hyperplasia without lower urinary tract symptoms; I44.7 Left bundle-branch block, unspecified; I10 Essential (primary) hypertension; E78.5 Hyperlipidemia, unspecified; Z91.81 History of falling
CPT/HCPCS: 36415; 70450; 70496; 70498; 70551; 71046; 72125; 80048; 80053; 80061; 83735; 84484; 85025; 85610; 93005; 95816; 96361; 96372; 96374; 99284; A9270-GY; G0378; J1644; J2405; Q9967

== ENCOUNTER 2019-07-10 05:22 | Inpatient (IN) | payer BC, MEDICARE ==
--- OUTSIDE RECORDS SUMMARY | 2019-07-10 05:30 | XMS REPORT | Continuity of Care Document ---
:1940 External Reference #:[id number] Author Name Alo Boo M.D. Address [address] [place] [address] Care Team Providers Name Role Phone Alo Boo MD - Family Medicine Care Team Information Client Professional [phone] [place] - Care Team Information Client Professional [phone] Physical Therapy Problems Active Problems Provider Date Essential hypertension Alo Boo M.D. Onset: 03/02/2015 Benign prostatic hypertrophy with outflow Alo Boo M.D. Onset: 10/05 obstruction Hyperlipidemia Alo Boo M.D. Onset: 10/24/2016 Secondary cerebrovascular disease Alo Boo M.D. Onset: 10/24/2016 Knee pain Alo Boo M.D. Onset: 12/06/2016 Peripheral vascular disease Alo Boo M.D. Onset: 12/06/2016 Left bundle branch block Alo Boo M.D. Onset: 02/16/2017 Other hyperlipidemia Alo Boo M.D. Onset: 08/20/2018 Social History Type Date Description Comments Sex Unknown Tobacco Use Start: Unknown Never Smoked Cigarettes ETOH Use Rarely consumes alcohol Allergies, Adverse Reactions, Alerts Active Allergies Reaction Severity Comments Date Erythromycin upset stomache 10/24/2016 Inactive Allergies NKDA 03/02/2015 Medications Active Medications SIG Qnty Indications Ordering Provider Date Clopidogrel Bisulfate Take One Tablet 90tabs Alo Boo, 03/23/2017 By Mouth Every M.D. 75mg Tablets Day Zolpidem Tartrate ER take one to two 60tabs Alo Boo, 12/06/2016 tablets by mouth M.D. 6.25mg Tablets ER at bedtime as needed maximum daily dose = two tablets Atorvastatin Calcium Take One Tablet 90tabs Alo F. Shallish, 10/21/2016 40mg By Mouth Every M.D. Tablets Day Amlodipine Besylate Take One Tablet 90tabs Alo F. Shallish, 10/21/2016 5mg By Mouth Every M.D. Tablets Day Immunizations CPT Code Status Date Vaccine Lot # [id number] Given 05/08/2019 High-Dose, Influenza Virus Vacccine-fluzone 65 and older [id number] Given 08/20/2018 Zoster (Shingles) Vaccine (HZV), Recombinant, [id number] Subunit, Adjuvanted 18338 Given 06/26/2018 High-Dose, Influenza Virus Vacccine-fluzone 65 and older 91778 Given 04/09/2018 Zoster (Shingles) Vaccine (HZV), Recombinant, [id number] Subunit, Adjuvanted 29656 Given 04/09/2018 Tdap Tetanus, W Pertussis [id number] 74050 Given 06/05/2017 Pneumococcal Conjugate Vacc-13 [id number] 15308 Given 06/05/2017 High-Dose, Influenza Virus Vacccine-fluzone 65 [id number] and older 27934 Given 08/22/2012 High-Dose, Influenza Virus Vacccine-fluzone 65 [id number] and older 01885 Given 08/09/2011 DO Not Use Split Influenza Virus Vaccine [id number] 94470 Given 07/14/2010 DO Not Use Split Influenza Virus Vaccine [id number] 95416 Given 09/07/2009 H1N1 Virus Vaccine [id number] 68854 Given 09/07/2009 H1N1 Immunization Intramuscular/Intranasal W Counseling 26659 Given 07/20/2009 DO Not Use Split Influenza Virus Vaccine [id number] 25388 Given 07/08/2008 DO Not Use Split Influenza Virus Vaccine [id number] 55185 Given 06/25/2007 Zostivax [id number] 09271 Given 06/25/2007 Pneumococcal Immunization [id number] 33270 Given 06/25/2007 Tetanus And Diptheria Adult Preservative Free [id number] >7Yrs 13617 Given 06/25/2007 DO Not Use Split Influenza Virus Vaccine [id number] 42942 Given 09/13/2005 DO Not Use Split Influenza Virus Vaccine [id number] Vital Signs Date Vital Result Comment 05/23/2019 5:01pm BP Systolic 136 mmHg BP Diastolic 62 mmHg Heart Rate 66 /min Body Temperature 97.9 F Respiratory Rate 16 /min Height 66.75 inches 5'6.75" Weight 212.00 lb BMI (Body Mass Index) 33.4 kg/m2 02/18/2019 3:24pm BP Systolic 114 mmHg BP Diastolic 70 mmHg Heart Rate 56 /min Body Temperature 97.9 F Respiratory Rate 16 /min Height 66.75 inches 5'6.75" Weight 208.00 lb BMI (Body Mass Index) 32.8 kg/m2 Results Test Date Facility Test Result H/L Range Note CBC Auto Diff 05/12/2019 [facility] White Blood Count 8.0 10^3/uL Normal 3.5- 10.8 Red Blood Count 4.45 10^6/uL Normal 4.18-5.48 Hemoglobin 14.4 g/dL Normal 14.0-18.0 Hematocrit 42 % Normal 42-52 Mean Corpuscular Volume 94 fL Normal 80-94 Mean Corpuscular Hemoglobin 32 pg High 27-31 Mean Corpuscular HGB Conc 35 g/dL Normal 31-36 Red Cell Distribution Width 14 % Normal 10-15 Platelet Count 145 10^3/uL Low 150-450 Mean Platelet Volume 9.6 fL Normal 7.4-10.4 Abs Neutrophils 5.4 10^3/uL Normal 1.5-7.7 Abs Lymphocytes 1.6 10^3/uL Normal 1.0-4.8 Abs Monocytes 0.5 10^3/uL Normal 0-0.8 Abs Eosinophils 0.4 10^3/uL Normal 0-0.6 Abs Basophils 0.1 10^3/uL Normal 0-0.2 Abs Nucleated RBC 0.0 10^3/uL Granulocyte % 67.8 % Lymphocyte % 20.1 % Monocyte % 6.1 % Eosinophil % 5.2 % Basophil % 0.8 % Nucleated Red Blood Cells % 0.0 Inr/Protime 05/12/2019 [facility] Inr 1.20 High 0.82-1.09 1 Comp Metabolic Panel 05/12/2019 [facility] Sodium 140 mmol/L Normal 135-145 Chloride 107 mmol/L Normal 101-111 Co2 Carbon Dioxide 26 mmol/L Normal 22-32 Glucose 120 mg/dL High 70-100 Blood Urea Nitrogen 26 mg/dL High 6-24 Creatinine 1.09 mg/dL Normal 0.67-1.17 BUN/Creatinine Ratio 23.9 High 8-20 Calcium 9.1 mg/dL Normal 8.6-10.3 Total Protein 7.6 g/dL Normal 6.4-8.9 Albumin 4.2 g/dL Normal 3.2-5.2 Globulin 3.4 g/dL Normal 2-4 Albumin/Globulin Ratio 1.2 Normal 1-3 Total Bilirubin 0.40 mg/dL Normal 0.2-1.0 Alkaline Phosphatase 47 U/L Normal 34-104 Alt 27 U/L Normal 7-52 Egfr Non- 65.6 >60 Egfr 79.4 >60 2 Potassium 3.9 mmol/L Normal 3.5-5.0 Anion Gap 7 mmol/L Normal 2-11 Ast 27 U/L Normal 13-39 Laboratory test finding 05/12/2019 [facility] Magnesium 2.0 mg/dL Normal 1.9- 2.7 Troponin I 0.01 ng/mL <0.04 3 Lipid Profile 02/18/2019 [facility]) Cholesterol 153 mg/dL 120- 200 Triglycerides 136 mg/dL 30-200 HDL Cholesterol 53 mg/dL 30-70 LDL (Calculated) 73 CALC 0-129 VLDL Cholesterol 27 mg/dL 0-50 HDL Risk Factor 2.9 CALC 0.0-4.4 Comprehensive Metabolic 02/18/2019 [facility]) Sodium 138 mEq/L 134-149 Prof Potassium 4.7 mEq/L 3.6-5.5 Chloride 104 mEq/L 94-112 Carbon Dioxide 25 mEq/L 21-32 Glucose 91 mg/dL 70-105 BUN 18 mg/dL 6-26 Creatinine 0.9 mg/dL 0.6-1.4 BUN/Creat Ratio 20.0 CALC 8.0-36.0 Calcium 9.3 mg/dL 8.6-10.2 Total Protein 7.7 g/dL 6.4-8.3 Albumin 4.5 g/dL 3.8-5.5 Globulin 3.2 g/dL 2.0-4.8 A/G Ratio 1.4 CALC 0.6-2.3 Alk. Phosphatase 54 U/L 22-95 Alt (SGPT) 15 U/L 7-35 Ast (Sgot) 15 U/L 5-34 Total Bilirubin 0.6 mg/dL 0.2-1.3 GFR Non- >60 ml/min/1.73m^ >=60 GFR >60 ml/min/1.73m^ >=60 Laboratory test finding 02/18/2019 Yonathan Pedersen([facility]) TSH 1.14 mIU/L 0.50-6.00 CK 132 U/L 38-174 PSA 2.6 ng/mL 0.0-4.0 CBC Electronic Fma 02/18/2019 Yonathan Pedersen([facility]) WBC 8.0 x10^3/UL 4.0- 10.0 RBC 4.65 x10^6/UL 3.93-6.00 HGB 14.9 g/dL 12.0-17.0 HCT 44 % 35-50 MCV 95.1 fL High 80.0-95.0 MCH 32.0 pg 25.6-32.2 MCHC 33.7 g/dL 32.2-36.0 RDW-CV 13.8 % 11.6-14.4 PLT 168 x10^3/UL 163-400 MPV 11.6 fL 9.4-12.4 Tawny# 4.93 x10^3/UL 1.56-6.13 Lymph# 2.01 x10^3/UL 1.18-3.74 Furnas# 0.55 x10^3/UL 0.24-0.82 Eos # 0.5 x10^3/UL 0.0-0.5 Baso # 0.03 x10^3/UL 0.01-0.08 Tawny% 61.6 % 34.0-70.0 Lymph % 25.2 % 20.0-52.0 Furnas% 6.9 % 5.0-12.0 Eos% 5.8 % 0.7-7.0 Baso% 0.4 % 0.1-1.2 1 Standard intensity warfarin therapeutic range: 2.0-3.0 High intensity warfarin therapeutic range: 2.5-3.5 2 Because ethnic data is not always readily [...] 15-29 5 Kidney failure <15 (or dialysis) 3 Troponin-I testing on Plasma Separator Tubes (PST) has a known false positive rate of 0.20-0.40%. All positive troponins reflex immediately to secondary confirmatory testing. Using the emaze Access Immunoassay systems, the 99th percentile upper reference limit was demonstrated to be < 0.03 ng/mL. Procedures Date Code Description Status 08/14/2012 [id number] Colonoscopy Completed Medical Devices Description No Information Available Encounters Type Date Location Provider Dx Diagnosis Office Visit 02/18/2019 [facility] Office Alo Flynn I67.89 Other cerebrovascular 3:00p Reid Boo disease I10 Essential (primary) hypertension E78.49 Other hyperlipidemia N40.1 Benign prostatic hyperplasia with lower urinary tract symp Z12.11 Encounter for screening for malignant neoplasm of colon Assessments Date Code Description Provider 05/23/2019 I67.89 Other cerebrovascular disease Alo Boo M.D. 05/23/2019 I10 Essential (primary) hypertension Alo Boo M.D. 02/18/2019 I67.89 Other cerebrovascular disease Alo Boo M.D. 02/18/2019 I10 Essential (primary) hypertension Alo Boo M.D. 02/18/2019 E78.49 Other hyperlipidemia Alo Boo M.D. 02/18/2019 N40.1 Benign prostatic hyperplasia with lower Alo Boo M.D. urinary tract sympto 02/18/2019 Z12.11 Encounter for screening for malignant Alo Boo M.D. neoplasm of colon Plan of Treatment Future Appointment(s):08/26/2019 3:00 pm - Alo Boo M.D. 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 He now is on aspirin and clopidogrel for 3 months of therapy following this event. He now feels fine. Return in 2 months for follow upI10 Essential (primary) hypertensionComments:continue current medication, call if bp elevation is persistent above 140/90 Functional Status Description No Information Available Mental Status Description No Information Available Referrals Description No Information Available
--- OUTSIDE RECORDS SUMMARY | 2019-07-10 05:30 | XMS REPORT | Continuity of Care Document ---
:1940 External Reference #:[id number] Author Name Amadou Girard M.D. Address [address] [place] [address] Care Team Providers Name Role Phone Alo Boo M.D. - Internal Care Team Information [facility] Tashia Corral M.D. - Care Team Information Noodle Maker [phone] Cardiovascular Disease Lana Colindres M.D. - Vascular Surgery Care Team Information Noodle Maker [phone] Kyrie Woody M.D. - Neurology Care Team Information Noodle Maker Luis Angel Dillard M.D. 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 Onset: 11/15/2016 Presence of intraocular lens Amadou Girard M.D. Onset: 11/15/2016 Peripheral vascular disease Onset: Palpitations Onset: Benign prostatic hypertrophy without outflow Onset: obstruction Subclavian steal syndrome Onset: Transient cerebral ischemia Amadou Girard M.D. Onset: 07/01/2019 Epiretinal membrane Amadou Girard M.D. Onset: 07/01/2019 Social History Type Date Description Comments Sex Unknown ETOH Use Rarely consumes alcohol Tobacco Use Start: Unknown Patient has never smoked Recreational Drug Use Denies Drug Use Smoking Status Reviewed: 07/01/19 Patient has never smoked Allergies, Adverse Reactions, Alerts Active Allergies Reaction Severity Comments Date Erythromycin 11/02/2016 Inactive Allergies NKDA 11/02/2016 Medications Active Medications SIG Qnty Indications Ordering Provider Date Atorvastatin Calcium Unknown 40mg Tablets Clopidogrel Bisulfate Unknown 75mg Tablets Amlodipine Besylate Unknown 5mg Tablets Zolpidem Tartrate ER Take One To Two Unknown Tablets By Mouth 6.25mg Tablets ER AT Bedtime as Needed Maximum Daily Dose Two Tablets SM Aspirin Adult Low Take One Tablet Unknown Strength Once Daily 81mg Tablets DR Immunizations Description No Information Available Vital Signs Description No Information Available Results Description No Information Available Procedures Description No Information Available Medical Devices Description No Information Available Encounters Description No Information Available Assessments Date Code Description Provider 07/01/2019 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 07/01/2019 Z96.1 Presence of intraocular lens Amadou Girard M.D. Plan of Treatment 07/01/2019 - Amadou Girard M.D.H35.372 Puckering of macula, left eyeComments: Smoking can increase the risk of developing or worsening any eye related disease , as well as affect your overall health. If you are a smoker, we strongly recommend that you quit.If you are not a smoker, we strongly recommend that you do not start. A Macular Pucker is a wrinkling of the retina tissue. It can cause distortion in your vision. Please call the office if you notice a decrease or new distortion in your vision before then.Follow up:1 Year Follow Up OCT MAC You can expect to have your eyes dilated at your next visit. If Dr. Girard orders any additional testing, it may require extra time. We recommend that you bring sunglasses, as dilation drops often make you light sensitive until they wear off. We always recommend you bring someone to drive you home if you are uncomfortable driving with your eyes dilated. 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 Functional Status Description No Information Available Mental Status Description No Information Available Referrals Description No Information Available
[2019-07-10] MEDS ORDERED: NS 0.9% 1000 ML** 1,000 ML IV ONE (05:44)
--- NOTE | 2019-07-10 05:48 | ED ---
HPI Cardiac - HPI Summary HPI Summary: The patient is a 79 y/o M arriving by ambulance to [facility] accompanied by family with a chief complaint of nausea and vomiting with weakness and waxing and waning heart rates onset since 1200 yesterday. He reports that at this time he had fallen, which was witnessed by his . He is unsure why he fell but didn t have a syncopal episode or any LOC. He continued to not feel well throughout the day, and he began experiencing nausea and vomiting with decreased oral intake. He measured his heart rate multiple times and noticed that it became bradycardic and occasionally tachycardic, and he was also experiencing fluctuations in his blood pressure. 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 He denies any CP or SOB. He is not currently in pain. He hasnt had any other recent illnesses. PMHx: cerebellar stroke, HLD, HTN, BPH. FHx: cardiac disease. Nonsmoker, rare EtOH, no substance use. Medications reviewed. Allergies noted. - History of Current Complaint Stated Complaint: VOMITING PER EMS Hx Obtained From: Patient, Family/Stamp Mounter - Onset/Duration: Started Hours Ago, Still Present Time of Onset: 12:00 Timing: Lasting Hours Initial Severity: Mild Current Severity: Moderate Pain Intensity: 0 Pain Scale Used: 0-10 Numeric Aggravating Factor(s): Nothing Alleviating Factor(s): Nothing Associated Signs and Symptoms: Positive: Weakness, Nausea, Vomiting, Other: - changes in heart rate, fall without LOC or syncope. Negative: Shortness of Breath - Additional Pertinent History Primary Care Physician: [id number] - Allergy/Home Medications Allergies/Adverse Reactions: Allergies Allergy/AdvReac Type Severity Reaction Status Date / Time erythromycin base Allergy Nausea Verified 05/12/19 21:57 PMH/Surg Hx/FS Hx/Imm Hx Endocrine/Hematology History: Denies: Hx Anticoagulant Therapy, Hx Diabetes Cardiovascular History: Reports: Hx Hypercholesterolemia, Hx Hypertension Denies: Hx Angina, Hx Coronary Artery Disease, Hx Myocardial Infarction, Hx Pacemaker/ICD, Hx Valvular Heart Disease, Other Cardiovascular Problems/ Disorders Respiratory History: Reports: Hx Asthma - age [age], ok now Denies: Hx Chronic Obstructive Pulmonary Disease (COPD), Other Respiratory Problems/Disorders GI History: Denies: Other GI Disorders History: Reports: Hx Benign Prostatic Hyperplasia, Other Problems/ Disorders - urinary retention, bph, Denies: Hx Renal Disease Musculoskeletal History: Reports: Hx Arthritis - right knee Denies: Other Musculoskeletal History Sensory History: Reports: Hx Cataracts - dennis, Hx Contacts or Glasses - glasses, Hx Hearing Aid Opthamlomology History: Reports: Hx Cataracts - dennis, Hx Contacts or Glasses - glasses Neurological History: Reports: Other Neuro Impairments/Disorders - cva 2017, b/ l carotid dx Psychiatric History: Denies: Hx Panic Disorder - Surgical History Surgical History: Yes Surgery Procedure, Year, and Place: dennis cataracts 2011, [facility] PROSTATE SHAVE 2016, BLADDER STONES REMOVED 04/02/17 Hx Anesthesia Reactions: No - Immunization History Date of Tetanus Vaccine: unk Date of Influenza Vaccine: fall 2015 Infectious Disease History: Denies: Traveled Outside the [place] in Last 30 Days - Family History Known Family History: Positive: Cardiac Disease - Social History Alcohol Use: Rare Alcohol Amount: 2 per month Hx Substance Use: No Substance Use Type: Reports: None Hx Tobacco Use: No Smoking Status (MU): Never Smoked Tobacco Review of Systems Positive: Other - episodes of tachycardia and bradycardia. Negative: Chest Pain Negative: Shortness Of Breath Positive: Vomiting, Nausea, Other - decreased oral intake Neurological: Other - fall without syncope or LOC Positive: Weakness All Other Systems Reviewed And Are Negative: Yes Physical Exam - Summary Physical Exam Summary: Appearance: Well-appearing, Well-nourished, elderly man lying in bed comfortably in no acute distress Skin: Warm, dry, no obvious rash Eyes: sclera anicteric, no conjunctival pallor ENT: mucous membranes moist, pharynx appears normal Neck: Supple, nontender Respiratory: Clear to auscultation, no signs of respiratory distress Cardiovascular: Bradycardic. Normal S1, S2. No murmurs. Normal distal pulses in tibial and radial bilaterally. Abdomen: Soft, nontender, normal active bowel sounds present Musculoskeletal: Normal, Strength/ROM Intact Neurological: A&Ox3, awake and alert, mentation is normal, speech is fluent and appropriate Psychiatric: affect is normal, does not appear anxious or depressed Triage Information Reviewed: Yes Vital Signs Reviewed: Yes Procedures - Sedation Patient Received Moderate/Deep Sedation with Procedure: No Diagnostics - Laboratory Result Diagrams: 07/12/19 05:10 07/12/19 05:10 Lab Statement: Any lab studies that have been ordered have been reviewed, and results considered in the medical decision making process. - EKG 0532 Cardiac Rate: Bradycardia - 23 BPM EKG Rhythm: 3rd Degree HB Summary of EKG Findings: EKG at 0532 reveals AV block, complete (third degree) at 23 BPM. No STEMI. ED physician has reviewed and interpreted this EKG. 0609 Cardiac Rate: Bradycardia - 26 BPM EKG Rhythm: 3rd Degree HB EKG Comparison: No Significant Change - Similar to previous taken at 0532 Summary of EKG Findings: EKG at 0609 reveals complete AV block at 26 BPM. No STEMI. ED physician has reviewed and interpreted this EKG. Disposition - Course Course Of Treatment: 79 y/o M with history of CVA and HTN arriving by ambulance for weakness, fall yesterday without LOC or syncope, nausea and vomiting with decreased oral intake, and waxing and waning heart rates gradually onset since 1200 yesterday. No CP or SOB. No cardiac history. Physical exam reveals elderly male in no acute distress with bradycardic heart rate. In the ED course, the patient was administered fluids and Atropine for bradycardia which did not seem to greatly affect the patients heart rate at first. EKGs at 0532 and 0609 show complete AV block. I discussed the EKGs with Dr. Chavarria, and he agrees with admission. Dr. Baker, hospitalist, accepts the patient. Patient and his understand and agree with the plan. - Diagnoses Provider Diagnoses: Complete heart block - Physician Notifications Discussed Care Of Patient With: Alex Chavarria - cardiology Time Discussed With Above Provider: 05:55 Instructed by Provider To: Other - I discussed the patient's case with Dr. Chavarria, and he agrees with EKG and recommends admission. I spoke with Dr. Baker , who accepts the patient for admission at 0615. - Critical Care Time Critical Care Time: 30-74 min - 3rd degree heart block with marked bradycardia requiring atropine and close monitoring Discharge ED - Sign-Out/Discharge Documenting (check all that apply): Patient Departure - Patient accepted for admission by Dr. Baker. - Discharge Plan Condition: Stable Disposition: ADMITTED TO [facility] - Billing Disposition and Condition Condition: STABLE Disposition: Admitted to [facility] - Attestation Statements Document Initiated by Scribe: Yes Documenting Scribe: Tahira Joseph Provider For Whom Estefani is Documenting (Include Credential): Dr. Blayne Oakley MD Scribe Attestation: I, Tahira Joseph, scribed for Dr. Blayne Oakley MD on 07/13/19 at 0350. Scribe Documentation Reviewed: Yes Provider Attestation: The documentation as recorded by the Tahira thomas accurately reflects the service I personally performed and the decisions made by me, Dr. Blayne Oakley MD Status of Scribe Document: Viewed
[2019-07-10] MEDS ORDERED: Atropine SYRINGE* 0.1 MG/ML 10 ML SYRINGE (1 MG) IV PUSH ONE ×2 (05:52)
[2019-07-10] MEDS ORDERED: Atropine 1MG/ML INJ* 1 ML VIAL IV PUSH PRN (05:52)
[2019-07-10 07:12] LABS: ABS Basophils 0.1 10^3/ul (0-0.2); ABS Lymphocytes 1.5 10^3/ul (1.0-4.8); ABS Monocytes 0.8 10^3/ul (0-0.8); ABS Neutrophils 17.3 10^3/ul (1.5-7.7); Hematocrit 42 % (42-52); Hemoglobin 14.2 g/dL (14.0-18.0); Lymphocyte % 7.8 %; Mean Corpuscular HGB Conc 34 g/dL (31-36); Mean Corpuscular Hemoglobin 32 pg (27-31); Mean Corpuscular Volume 94 fL (80-94); Mean Platelet Volume 10.1 fL (7.4-10.4); Platelet Count 165 10^3/uL (150-450); Red Blood Count 4.41 10^6 /uL (4.18-5.48); Red Cell Distribution Width 14 % (10-15); White Blood Count 19.7 10^3/uL (3.5-10.8)
[2019-07-10 07:30] LABS: Albumin/Globulin Ratio 1.3 (1-3); BUN/Creatinine Ratio 16.6 (8-20); EGFR African American 34.7 (>60); EGFR Non-African American 28.6 (>60); Globulin 3.1 g/dL (2-4); Magnesium 2.4 mg/dL (1.9-2.7); Potassium 4.7 mmol/L (3.5-5.0); Total Bilirubin 0.6 mg/dL (0.2-1.0); Total Protein 7.1 g/dL (6.4-8.9)
[2019-07-10 07:37] LABS: Troponin I 0.09 ng/mL (<0.03)
[2019-07-10] MEDS ORDERED: NS 0.9% 1000 ML** 1,000 ML IV.FLUID IV ONE (07:55)
[2019-07-10] MEDS ORDERED: NS 0.9% 1000 ML** 1,000 ML IV SCH (08:00)
[2019-07-10 08:19] LABS: TSH (Thyroid Stimulating Horm) 1.95 mcIU/mL (0.34-5.60)
[2019-07-10] MEDS ORDERED: Perflutren Lipid Microsphere* 3 ML VIAL ONE (09:17)
[2019-07-10 09:24] LABS: C Reactive Protein 5.07 mg/L (<8.01)
[2019-07-10] MEDS ORDERED: Lidocaine 1% INJ* 10 MG/ML 30 ML SDV ONE (09:27)
[2019-07-10] MEDS ORDERED: Iohexol 300* (CONTRAST) 10 ML SDV ONE (09:28)
[2019-07-10] MEDS ORDERED: fentaNYL* 50 MCG/ML 2 ML VIAL (100 MCG VIAL) ONE (09:35)
[2019-07-10] MEDS ORDERED: Midazolam* 1 MG/ML 5 ML VIAL (5 MG) ONE (09:35)
[2019-07-10 09:36] LABS: Urine Appearance Turbid; Urine Bilirubin Negative (Negative); Urine Blood 3+ (Negative); Urine Color Amber; Urine Glucose Negative (Negative); Urine Ketones Trace (Negative); Urine Nitrite Negative (Negative); Urine Protein 1+(30 mg/dL) (Negative); Urine Urobilinogen Negative (Negative)
[2019-07-10 09:41] LABS: Urine Bacteria Absent (Absent); Urine Red Blood Cell 3+(>10/hpf) (Absent); Urine Squamous Epithelial Cell Present (Absent); Urine White Blood Cell 3+(>20/hpf) (Absent)
[2019-07-10] MEDS ORDERED: ceFAZolin 2 GM PREMIX in ORs 2 GM/50 ML BAG IVPB ONE (09:45)
--- NOTE | 2019-07-10 09:50 | CONS ---
CC: Dr. Corral * CARDIOLOGY CONSULTATION: DATE OF CONSULT: 07/10/19 REASON FOR EVALUATION: Bradycardia. HISTORY OF PRESENT ILLNESS: This is a 79-year-old gentleman with history of vascular disease, carotid disease, CVA 2-1/2 years ago, hypertension, who was in his usual state of health until about noon yesterday, he was sitting on chair and got up to answer the door and fell to the ground. He denied any loss of consciousness. He fell on his right side; he did not hit his head. He said the rest of the day he was somewhat weak and developed nausea and did not want to eat dinner. He was vomiting every hour or 2. About 2 a.m. got up again for pedialyte, Apparently, his had been giving him Pedialyte every hour or so. However, he vomited up the Pedialyte about 2 to 3 a.m. and he decided to come to the emergency room. Here, he was noted to be in narrow complex bradycardia in the 30s with complete heart block. He denies any fevers, chills, sweats, syncope, orthopnea or peripheral edema. He said normally he walks 2-1/2 miles in good weather and bikes 20 minutes on indoor bike when the weather is not good. He last did that 2 days ago. He denies any tick bites or rashes. No hematemesis or hematochezia. No urinary problems, although he does have a history of BPH and is status post TURP. PAST MEDICAL HISTORY: Includes Chronic LBBB PVC"s followed by Dr. Corral vascular disease followed by vascular surgeon for lower extremity peripheral vascular disease carotid disease 10/2018 70-90% LICA 50-69% EMILY hypertension; hyperlipidemia, on therapy; CVA 2-1/2 years ago, which affected his speech, he has mostly recovered. He says he still has some residual difficulty with expressive aphasia. BPH Nephrolithiasis , bladder calculi 05/02 confusion episode negative EEG ? hypotension. ?alcohol related / dehydration Renal insufficiency newly noted this vist c/t earlier this fall when his creatinine was normal. PAST SURGICAL HISTORY: Includes a TURP, no other surgeries. MEDICATIONS: Include: 1. Amlodipine 5 mg a day. 2. Ambien 1 tab at bedtime p.r.n. 3. Plavix 75 mg daily. 4. Atorvastatin 40 mg at bedtime. 5. Aspirin 81 mg a day. ALLERGIES: No known drug allergies, but gets nauseous on erythromycin. FAMILY HISTORY: Includes father of [place] at 64. Mother at 99, had a pacemaker. 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 He is , has 1 daughter. He is accompanied by his , Mai. He reports he has quit alcohol 2 years ago after a stroke. REVIEW OF SYSTEMS: Review of systems x10 was negative except as above. PHYSICAL EXAM: He is a well-developed, well-nourished gentleman, overweight, in no apparent distress. Heart rate is 30, blood pressure 152/55. Carotids 2+ , with a left carotid bruit. No cervical lymphadenopathy or thyromegaly. No JVD. Extraocular muscles intact. Sclerae anicteric. Cardiac Exam: S1, S2 with a 2/6 systolic ejection murmur at the left sternal border radiating to the apex. Chest was clear. No CVAT. Abdomen: Bowel sounds present. Umbilical hernia, easily reducible. No hepatosplenomegaly. Femoral pulses intact with a right femoral bruit. Distal pulses diminished, but present. Trace edema on the left. Negative Homans sign. Motor strength 5/5 bilaterally. Deep tendon reflexes 2/4. He knows where he is. He is not sure of the year or the month. His said he was alert earlier in the day, but has been sleep deprived all night, which may be impacting his orientation. DIAGNOSTIC STUDIES/LAB DATA: Labs include a white count of 19.7, hematocrit of 42, platelet count of 165. Sodium 140, potassium 4.7, BUN 37, creatinine at 2.23, glucose 126, lactic acid 4.3, troponin 0.09. TSH is pending. Chest x-ray is pending and his EKG from 6:09 a.m. revealed what appeared to be sinus rhythm with third-degree AV block, minor nonspecific ST changes, counterclockwise rotation. His EKG from 5:32 revealed slightly more pronounced ST depressions anteriorly. IMPRESSION: My impression is that Mr. Kamara has a complete heart block with narrow complex escape in the setting of nausea, elevated troponin, and elevated white count. I suspect this is primarily conducting system disease. We cannot exclude a concurrent infection or ischemic heart disease especially given his risk factors. It is not clear whether the troponin is demand ischemia or part of an ischemic syndrome. Of note, in April, he did have a left bundle branch block on his EKG as well as on . He also has developed renal sufficiency, which could be related to poor perfusion as well as lactic acidosis. I have discussed the findings with the patient and his and Dr. Mathew and Dr. Najera. At the present, I recommend the followin. Would continue with hydration as you are doing. 2. Would check serial troponins, EKGs, and electrolytes. 3. Prepare for pacemaker. I have discussed with Dr. Mathew and hopefully we can proceed with a permanent pacemaker; however, if there is evidence of infection, she may want to delay that and put in a temporary pacemaker until his ID status is resolved. I will defer that to Dr. Mathew. 4. Would check sed rate, CRP, and Lyme titers. 5. Would continue his Lipitor. 6. Would restrict to bed rest. 7. Would obtain an echocardiogram eventually, may benefit from evaluation for ischemic heart disease. 8. Further recommendation depending on his clinical course. D/w Dr. Najera [id number]/[facility] #: [id number] GLEN COVE HOSPITALSailaja
[2019-07-10 10:24] LABS: Erythrocyte Sed Rate 13 mm/Hr (0-19)
[2019-07-10] MEDS ORDERED: Ondansetron INJ* 2 MG/ML VIAL IV PRN (12:03)
[2019-07-10] MEDS ORDERED: Ondansetron INJ* 2 MG/ML VIAL ONE (12:04)
[2019-07-10] MEDS: NS 0.9% 1000 ML** 1,000 ML IV SCH (12:45)
[2019-07-10] MEDS: amLODIPine TAB* 5 MG PO SCH (12:57)
[2019-07-10 13:03] LABS: Activated Partial Thrombo Time 19.3 seconds (26.0-38.0); INR 1.29 (0.82-1.09)
[2019-07-10 13:06] LABS: BUN/Creatinine Ratio 22.2 (8-20); Blood Urea Nitrogen 38 mg/dL (6-24); CO2 Carbon Dioxide 23 mmol/L (22-32); EGFR African American 47.1 (>60); EGFR Non-African American 38.9 (>60); Glucose 129 mg/dL (70-100); Magnesium 2.2 mg/dL (1.9-2.7); Potassium 4.3 mmol/L (3.5-5.0); Sodium 142 mmol/L (135-145)
[2019-07-10 13:11] LABS: Anion Gap 7 mmol/L (2-11); Chloride 112 mmol/L (101-111); Troponin I 0.32 ng/mL (<0.03)
[2019-07-10] MEDS ORDERED: Furosemide IV* 10 MG/ML 2 ML VIAL (20 MG) IV ONE (14:03)
--- NOTE | 2019-07-10 15:10 | ECHO ---
*[facility]* [place] [address] Fax #: [phone] Transthoracic Echocardiogram Patient: Amadou Kamara : 1940 Study Date: 07/10/2019 Age: 79 Gender: M HR: 34 bpm Height: 68 in /172.7 cm BSA: 2.07 m^2 Weight: 206.6 lb /93.9 kg BMI: 31.5 kg/m^2 *Neonatal Specialist: Martha Hardy [facility] *Referring Physician: * Alex Chavarria MD *Reading Physician: * Liz Mathew MD Indications: Abnormal EKG. Murmur. History: Left bundle branch block. Transient ischemic attack. Cerebrovascular accident. Risk factors: Hypertension. Dyslipidemia. Conclusions Summary: - The patient was in complete heart block at the time of the study. - Left ventricle: The cavity size is normal. Wall thickness is moderately increased. Systolic function is normal. The estimated ejection fraction is 60-65%. - Mitral valve: The findings are consistent with mild stenosis. There is mild regurgitation. The mean diastolic gradient is 4.0 mm Hg. The valve area is 1.9 cm^2. The valve area by pressure half-time is 1.6 cm^2. - Aortic valve: The findings are consistent with mild stenosis. The mean systolic gradient is 9.0 mm Hg. The LVOT to aortic valve VTI ratio is 0.7. The valve area by the velocity-time integral method is 2.10 cm^2. The valve area by the peak velocity method is 2.10 cm^2. - Pulmonary arteries: Systolic pressure can not be accurately estimated. - Compared with prior echocardiogram of 03/27/18 ejection fraction previously 50-55%, new, mitral valve function is stable. Study data: Transthoracic echocardiogram. Procedure: Transthoracic echocardiography was performed. Image quality was fair. Intravenous Definity , 2 mlswas administered. Complete 2D, spectral Doppler, and color flow Doppler. Location: ICU Patient status: Inpatient. Patient room number: 2. Rhythm: Heart block. Findings Left ventricle: The cavity size is normal. Wall thickness is moderately increased. Systolic function is normal. The estimated ejection fraction is 60-65%. Wall motion is normal; there are no regional wall motion abnormalities. Left ventricular diastolic function parameters are normal for the patient's age. Right ventricle: The cavity size is normal. Systolic function is normal. Left atrium: The atrium is normal in size. Right atrium: The atrium is normal in size. Mitral valve: The Mitral valve annulus appears calcified. The leaflets are mildly thickened. The findings are consistent with mild stenosis. There is mild regurgitation. Aortic valve: The valve is trileaflet. The leaflets are mildly thickened. The findings are consistent with mild stenosis. There is no significant regurgitation. Tricuspid valve: The leaflets are normal thickness. There is no evidence of stenosis. There is trace regurgitation. Pulmonic valve: The leaflets are normal thickness. There is no evidence of stenosis. There is no significant regurgitation. Aorta: The aortic root appears normal. The aortic arch appears normal. Pericardium: There is no significant pericardial effusion. Pulmonary arteries: Systolic pressure can not be accurately estimated. Systemic veins: Inferior vena cava: The vessel is dilated. There is (< 50%) respiratory change in the IVC dimension. Measurements Left ventricle Value Ref Aortic valve Value Ref ARIEL, LAX 5.0 cm 4.2 - 5.8 Radha diam, ED 2.2 cm ---- ESD, LAX 2.8 cm 2.5 - 4.0 Peak v, S 2.3 m/sec ---- FS, LAX (H) 44 % 25 - 43 VTI, S 52.0 cm ---- PW, ED, LAX 1.0 cm 0.6 - 1.0 Mean grad, S 9.0 mm Hg ---- EF (H) 75 % 52 - 72 Peak grad, S 21.0 mm Hg ---- E', lat radha, TDI (L) 8.1 cm/sec >=10.0 LVOT/AV, VTI ratio 0.7 -- -- E/e', lat radha, 17 BERLIN, VTI 2.10 cm^2 ---- TDI BERLIN, Vmax 2.10 cm^2 ---- E', med radha, TDI (L) 6.7 cm/sec >=7.0 E/e', med radha, 21 Mitral valve Value Ref TDI Peak E 1.41 m/sec ---- E', avg, TDI 7.4 cm/sec Peak A 1.7 m/sec ---- E/e', avg, TDI (H) 19 <=14 Decel time 251 ms -- -- PHT 135 ms ---- LVOT Value Ref Mean grad, D 4.0 mm Hg ---- Diam, S 2.00 cm Peak grad, D 9.0 mm Hg ---- Area 3.1 cm^2 Peak E/A ratio 0.8 ---- Peak jair, S 1.5 m/sec MVA, PHT 1.6 cm^2 ---- VTI, S 34.5 cm Peak grad, S 9 mm Hg Pulmonic valve Value Ref Mean grad, S 5 mm Hg Peak v, S 0.8 m/sec ---- SV 108 ml Peak grad, S 3.0 mm Hg ---- Ventricular septum Value Ref Aortic root Value Ref IVS, ED (H) 1.5 cm 0.6 - 1.0 Root diam 3.3 cm <4.2 Right ventricle Value Ref Aortic arch Value Ref ARIEL, LAX 3.2 cm Arch diam 3.2 cm ---- ARIEL minor ax, A4C (H) 3.8 cm 1.9 - 3.5 mid Decending aorta Value Ref Opal peak jair 1.33 m/sec ---- Left atrium Value Ref AP dim, ES (H) 4.70 cm 3.00 - Inferior vena cava Value Ref 4.00 Diam 2.6 cm ---- ML dim, A4C 4.2 cm SI dim, A4C 5.9 cm Pulmonary veins Value Ref Vol/bsa, ES, A/L 32 ml/m^2 16 - 34 Peak v, S 0.78 m/sec ---- Peak v, D 0.49 m/sec ---- Right atrium Value Ref Peak S/D ratio 1.6 ---- SI dim, ES 4.6 cm 3.4 - 5.3 ML dim, ES, A4C 4.2 cm 2.6 - 4.4 Estimated RAP 8 mm Hg Legend: (L) and (H) gauri values outside specified reference range. Prepared and electronically signed by Liz Mathew MD 07/10/2019 15:09
[2019-07-10 15:50] LABS: Calcium 8.4 mg/dL (8.6-10.3); Potassium 4.2 mmol/L (3.5-5.0)
[2019-07-10 15:50] LABS: Hematocrit 35 % (42-52); Hemoglobin 11.7 g/dL (14.0-18.0); Mean Corpuscular HGB Conc 33 g/dL (31-36); Mean Corpuscular Hemoglobin 32 pg (27-31); Mean Corpuscular Volume 94 fL (80-94); Mean Platelet Volume 9.9 fL (7.4-10.4); Platelet Count 144 10^3/uL (150-450); Red Blood Count 3.71 10^6 /uL (4.18-5.48); Red Cell Distribution Width 15 % (10-15); White Blood Count 16.1 10^3/uL (3.5-10.8)
[2019-07-10 15:55] LABS: BUN/Creatinine Ratio 22.6 (8-20); EGFR African American 49.4 (>60); EGFR Non-African American 40.8 (>60)
[2019-07-10] MEDS ORDERED: Furosemide IV* 10 MG/ML 2 ML VIAL (20 MG) ONE (16:33)
[2019-07-10] MEDS: cefTRIAXone(*) 1 GM in NS 0.9% 50 ML* 50 ML IVPB SCH (16:36)
[2019-07-10] MEDS ORDERED: Azithromycin 500 mg/250 ml NS 500 MG/250 ML BAG IVPB SCH (17:00)
--- NOTE | 2019-07-10 17:52 | HP ---
CC: Alo Boo MD HISTORY AND PHYSICAL: DATE OF ADMISSION: 07/10/19 PRIMARY CARE PHYSICIAN: Alo Boo MD. HEALTHCARE PROXY: His Naty, phone number [phone]. CODE STATUS: Full. CHIEF COMPLAINT: Fall HISTORY OF PRESENT ILLNESS: Mr. Kamara is a 79-year-old man with a history of hypertension, CVA, BPH, CKD, and peripheral vascular disease, who was in his usual state of health until yesterday afternoon. He reports lightheadedness after getting up from a chair and falling to the ground. The patient denies head strike, LOC, or confusion. He felt like he was weak for the rest of the day and mildly nauseous with decreased appetite. By the evening, he began vomiting. He tried to drink Pedialyte; however, he began to vomit this as well. At approximately 3 in the morning, given persistent vomiting, his brought him to the emergency room. The patient denied fevers, chills, night sweats, cough, syncope, chest pain, shortness of breath, orthopnea, peripheral edema. He also denies dysuria, recent rash. He states his baseline exercise tolerance is unlimited and he uses an indoor bike. In the emergency room, he was noted to be in a narrow complex bradycardia into the 20s with third-degree heart block. Of note, the patient was hospitalized last month for 1 day after a fall that was associated with nausea and blurry vision. He had had unsteady gait since his stroke 2 years ago and then, in [facility], had 15 seconds of blurry vision which self resolved. Episode was also associated with vomiting and a fall. Because he was unsteady on his feet and unable to ambulate with a cane, 911 was called. An EEG was negative. It was thought that he may have had a seizure as he had had alcohol intake the prior day which could have lowered his seizure threshold. Otherwise, they thought it could be orthostatic hypotension as the patient had been walking around a lot on day prior which was a hot day. The patient had been seen by Neurology at that time and was discharged on Plavix and aspirin for a 3-month course. PAST MEDICAL HISTORY: 1. CVA in 2017. 2. Bilateral carotid disease. 3. Hypertension. 4. BPH. 5. Chronic left bundle-branch block. 6. Peripheral vascular disease. HOME MEDICATIONS: 1. Amlodipine 5 mg daily. 2. Clopidogrel 75 mg daily. 3. Atorvastatin 40 mg at bedtime. 4. Ambien 10 mg at bedtime. 5. Aspirin 81 mg daily. ALLERGIES: ERYTHROMYCIN caused nausea. FAMILY HISTORY: Mother at 99 with breast cancer. Father in his 60s due to heart disease. SOCIAL HISTORY: The patient denies tobacco, alcohol, or other drug use. He lives with his who is also his healthcare proxy. He remains physically active and uses an indoor bike. REVIEW OF SYSTEMS: A complete 10-point review of systems was performed and pertinent positives and negatives are listed in the HPI. PHYSICAL EXAMINATION VITAL SIGNS: Afebrile, heart rate 20s, blood pressure 152/55, respiratory rate 16, oxygen saturation 100% on room air. HEENT: With sclerae anicteric. No evidence of trauma. Moist mucous membranes. NECK: Carotid pulses palpated bilaterally with a left-sided carotid bruit. No JVD. Neck is supple. LUNGS: Clear to auscultation bilaterally. HEART: Bradycardic with soft systolic murmur. ABDOMEN: Soft, nontender, nondistended. EXTREMITIES: Warm and well perfused without evidence of edema. NEURO: Alert to and hospital, but confused on the date. DIAGNOSTIC STUDIES/LAB DATA: CBC notable for leukocytosis to 19. BMP notable for new BAY with creatinine 2.23. Lactic acid 4.3. Troponin 0.09. UA with trace ketones, 3+ blood, 3+ LE, 3+ wbc, negative nitrite, absent bacteria. Lyme antibody negative. Chest x-ray AP with low lung volume, small right basilar infiltrate suggestive of atelectasis, less likely pneumonia. EKG with third-degree AV block, mild or nonspecific ST changes, rate 23. ASSESSMENT AND PLAN: Mr. Kamara is a 79-year-old man with a history of CVA, carotid artery disease, hypertension, and chronic left bundle-branch block, who is presenting after weakness, fall, and multiple episodes with emesis. He was found with third-degree heart block as well as laboratory values suggestive of severe sepsis given leukocytosis with elevated lactic acid and new acute kidney injury. His chest x-ray is concerning for pneumonia, although he has had no respiratory symptoms. His UA is possibly positive, but not definitively so, and he denies dysuria. 1. Heart block. Dr. Chavarria has consulted on the patient and Dr. Mathew will take the patient to place pacer. Appreciate further cardiology recommendations. He will be monitored in the ICU for telemetry monitoring, in the meantime, with transcutaneous pacer pads. He has already received atropine , which has not improved his heart rate. 2. Concern for a severe sepsis, although etiology at this time is unclear. The patient has been experiencing gastrointestinal symptoms, although he did have vomiting last month during a prior episode of weakness and falls. He is currently denying gastrointestinal symptoms now. He denies cough or shortness of breath. He denies fevers or chills. He also denies dysuria. Blood cultures have been drawn. Urine will reflex to culture. He will be initiated on ceftriaxone. Urine pneumonia antigens are pending. He will receive sepsis dosed fluids and continue to have his lactate trended. 3. History of hypertension. Continue the patient's home amlodipine. 4. Carotid artery stenosis. Given planned procedure, we will defer initiation of dual-antiplatelets to risk control analyst. Continue the patient's home statin. 5. DVT prophylaxis: We will put on SCDs, can initiate Lovenox when cleared by Cardiology. 6. Code status: Full code. TIME SPENT: Approximately 60 minutes was spent on admission of this patient, more than half of which was spent at bedside for interview and exam. [id number]/[facility] #: [id number] MTDD
[2019-07-10] MEDS ORDERED: ceFAZolin VIAL(*) 1 GM in NS 0.9% 50 ML* 50 ML IVPB SCH (18:00)
--- NOTE | 2019-07-10 18:38 | CONSULT ---
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 He was fine until he fell yesterday, than recurrent n/v, low pulse and BP. No hx of infectious symptoms prior. Family History: Unchanged from Admission Social History: Unchanged from Admission Past Medical History: Findings - LBBB, Carotid stenosis, CVA, HTN Medications Active Medications: Amlodipine Besylate (Norvasc Tab*) 5 mg PO QAM [facility] Last Admin: 07/10/19 12:57 Dose: 5 mg Atorvastatin Calcium (Lipitor*) 40 mg PO BEDTIME [facility] Atropine Sulfate (Atropine 1mg/Ml Inj*) 1 mg IV PUSH Q3M PRN PRN Reason: BRADYCARDIA Sodium Chloride (Ns 0.9% 1000 Ml) 1,000 mls @ 75 mls/hr IV PER RATE [facility] Last Admin: 07/10/19 12:45 Dose: 75 mls/hr Ceftriaxone Sodium 1 gm/ (Sodium Chloride) 50 mls @ 100 mls/hr IVPB Q24H [facility] Last Admin: 07/10/19 16:36 Dose: 100 mls/hr Ondansetron HCl (Zofran Inj*) 4 mg IV Q8H PRN PRN Reason: NAUSEA Home Medications: Atorvastatin* [Lipitor 40 MG*] 40 mg PO BEDTIME #30 tab 10/11/16 [Rx Confirmed 07/10/19] Zolpidem Tartrate [Zolpidem Tartrate ER] 1 tab PO BEDTIME PRN 02/13/17 [History Confirmed 07/10/19] Clopidogrel TAB* [Plavix TAB*] 75 mg PO QAM 03/30/17 [History Confirmed 07/10/19 ] Aspirin EC TAB* [Ecotrin EC Low Dose 81 MG*] 81 mg PO DAILY #90 tab.ec 05/14/19 [Rx Confirmed 07/10/19] amLODIPine TAB* [Norvasc 5 mg TAB*] 5 mg PO QAM tab 05/14/19 [Rx Confirmed ] Review of Systems - Measurements Intake and Output: Intake and Output Last 24 Hours 07/08/19 07/09/19 07/10/19 07/11/19 04:59 04:59 04:59 04:59 Weight 207 lb - Review of Systems General Comments: Negative for fevers, cough, dysurea, respiratory symptoms, fevers. Positive for mild changes in mentation per his after several hours of symptoms. No diarrhea or constipation. Review of Systems Statement: All other review of systems negative, unless stated above. Objective Vital Signs: Temp Pulse Resp BP Pulse Ox 99.1 F 85 22 151/73 100 07/10/19 16:00 07/10/19 18:00 07/10/19 18:00 07/10/19 18:00 07/10/19 18:00 Vital Signs 07/10/19 07/10/19 07/10/19 05:31 05:48 06:00 Temperature 98.0 F Pulse Rate 30 26 26 Respiratory 16 16 16 Rate Blood Pressure 170/50 (mmHg) O2 Sat by Pulse 97 92 91 Oximetry 07/10/19 07/10/19 07/10/19 07:00 07:11 07:39 Temperature Pulse Rate 33 30 30 Respiratory 14 10 11 Rate Blood Pressure 136/68 170/57 (mmHg) O2 Sat by Pulse 94 94 92 Oximetry Oxygen Devices in Use Now: Nasal Cannula Appearance: Older male, centripetal obesity, anwers questions, but sometimes anwers don't appear accurate/complete. Eyes: No Scleral Icterus Ears/Nose/Mouth/Throat: Clear Oropharnyx Neck: No Thyroid Enlargement, Masses Respiratory: Symmetrical Chest Expansion and Respiratory Effort - diminished bs bases Cardiovascular: RRR - slow\ Abdominal: NL Sounds; No Tenderness; No Distention Extremities: No Edema Skin: No Rash or Ulcers Neurological: NL Muscle Strength and Tone Laboratory Results: 07/10/19 07:00 07/10/19 07:00 INR (Anticoag Therapy) 1.29 (0.82-1.09) H 07/10/19 12:45 APTT 19.3 seconds (26.0-38.0) L 07/10/19 12:45 Total Bilirubin 0.60 mg/dL (0.2-1.0) 07/10/19 07:00 AST 23 U/L (13-39) 07/10/19 07:00 ALT 22 U/L (7-52) 07/10/19 07:00 Alkaline Phosphatase 48 U/L (34-104) 07/10/19 07:00 Total Protein 7.1 g/dL (6.4-8.9) 07/10/19 07:00 Albumin 4.0 g/dL (3.2-5.2) 07/10/19 07:00 Globulin 3.1 g/dL (2-4) 07/10/19 07:00 Albumin/Globulin Ratio 1.3 (1-3) 07/10/19 07:00 TSH 1.95 mcIU/mL (0.34-5.60) 07/10/19 07:00 07/10/19 07:00 Troponin I 0.09 H* EKG Data: NSR/ST, 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 PACER/EP consult. Issues: Chronic plavix use and elevated WBC. After discussion with his , I don't appreciate any infectious prodrome, CXR c/w CHF but no pneumonia. UA not heavily suggestive of UTI, but await UC. After weighing the pros and cons of: 1. temporary pacer to permanent pacer Monday Risk of temporary pacer injuring patient, patient likely would have difficulty staying in bed, still for days Benefit/potential benefit of less infectious risk, less bleeding risk weaning off plavix vs. 2. Permanent pacer today, One procedure, better REVENUE CYCLE MANAGER perfusion, improved mobility. Increased bleeding risk. If in fact bacteremic, increased risk of pacer infection. Decision to implant pacer today. Changed antibiotic to cefriaxone after discussion with rag production worker. Extensive discussions on details of the procedure, risks and benefits with the patient's family.
--- NOTE | 2019-07-10 20:04 | PRO ---
PROCEDURE NOTE: DATE OF OPERATION: 07/10/19 DATE OF : 42 SURGEON: Liz Mathew MD. ANESTHESIOLOGIST: ANESTHESIA: PRE-OP DIAGNOSIS: Complete heart block, symptomatic POST-OP DIAGNOSIS: Complete heart block, symptomatic OPERATIVE PROCEDURE: Dual-chamber pacemaker implantation. INDICATIONS: The indications, risks and benefits of the procedure have been discussed with the patie nt and his and they were amenable to proceeding. He was on Plavix, had an elevated white count, but it was felt that the risk-benefit of waiting with a temporary pacemaker was greater than putting in a permanent pacemaker in today in terms of bleeding and he had been completely fine until he fell , and there was no evidence of infection, and it was felt his white count was most likely related to stress from his heart block as opposed to sepsis. DESCRIPTION OF PROCEDURE: The patient is right-handed and the left subclavian fossa was prepped and draped in the usual sterile fashion and a time-out was called. The patient received 10 cc of radiopa que dye in the right upper extremity, outlining the right axillary and right subclavian veins. Follo wing this, the patient received Versed and fentanyl documented separately. He also received 1% lidoc romero locally for local anesthesia and using a 10-blade knife, a 2.5 cm incision was made in the left subclavian fossa. Followed by Bovie cautery and blunt dissection, this was extended to the level of the pectoralis muscle. Additional lidocaine was infused inferiorly and medially, and using blunt diss ection, a pocket was fashioned. Using the modified Seldinger technique, the left subclavian vein was cannulated and a guidewire inserted using fluoroscopic guidance and a second guidewire was inserted with the same technique. Using an introducer technique, the right ventricular lead was guided to the RV apex. There was trans ient asystole and the lead was repositioned actively fixed in place, but was not getting good capture and appeared to have moved. The 52 cm lead was then guided into the RV apex securing pacing. He di d need to be externally paced transiently. The 58 cm lead was then retracted and repositioned in the RV apex. Pacing and sensing thresholds were checked and found to be good. The 52 cm lead was then moved back into the atrium, guided in the right atrial appendage, actively fixed and placed. Pacing and sensing were checked and found to be good. There was oozing in the pocket throughout this. The p ocket was irrigated and leads sutured to the pocket using 0 silk suture. The ventricular lead was at tached to the generator. Additional irrigation was made to the pocket. The atrial lead was then att ached to the generator. Aristo was placed in the pocket for oozing from the pectoralis muscle. The generator was then placed in the pocket. The incision was closed using 2 layers of resorbable suture 2-0, followed by 4-0, followed by wilber and external dressing. FINDINGS: The entire system is a bookletmobiletronic MRI compatible system. The pacemaker is a Medtronic W1DR 1, serial #[id number], currently programmed in dual chamber pacing at a lower rate of 60 beats a mi nute. The atrial lead is a Medtronic model 506-52, serial #[id number]. The ventricular lead is a [employer] 5076- 58, serial #[id number]. P waves were sensed at 3.9 mV with an atrial lead impedance of 584 ohms and an atrial pacing threshol d of 0.5 V at 0.5 msec. There were no R waves to be sensed. The ventricular lead impedance was 1196 ohms with a ventricular pacing threshold of 0.8 V at 0.5 msec. During the procedure, the patient had intermittent episodes of vomiting. He was uncomfortable talkin g and was not responding to sedation. ESTIMATED BLOOD LOSS: 20 cc. VITALS: Blood pressure was in the low 100s through most of the case. Once pacing was restored, it b ecame elevated in the 180s. IMPRESSION: The patient with third-degree heart block, symptomatic bradycardia, who underwent dual-c hamber implantation, complex prolonged procedure, increased bleeding compared with the usual transien t asystole requiring external pacing transiently. At the end of the procedure, the patient was hemod ynamically stable and chatting. [id number]/[facility] #: [id number]
[2019-07-10] MEDS: Atorvastatin* 40 MG TAB PO SCH (20:39)
[2019-07-10] MEDS ORDERED: Haloperidol INJ IV/IM* 5 MG/ML AMP IV SLOW PU PRN (22:43)
[2019-07-11 05:04] LABS: Hematocrit 34 % (42-52); Hemoglobin 11.5 g/dL (14.0-18.0); Mean Corpuscular HGB Conc 34 g/dL (31-36); Mean Corpuscular Hemoglobin 32 pg (27-31); Mean Corpuscular Volume 94 fL (80-94); Mean Platelet Volume 9.6 fL (7.4-10.4); Platelet Count 120 10^3/uL (150-450); Red Blood Count 3.58 10^6 /uL (4.18-5.48); Red Cell Distribution Width 15 % (10-15); White Blood Count 11.5 10^3/uL (3.5-10.8)
[2019-07-11 05:19] LABS: BUN/Creatinine Ratio 26.6 (8-20); Calcium 8.3 mg/dL (8.6-10.3); EGFR African American 79.2 (>60); EGFR Non-African American 65.4 (>60); Magnesium 2.1 mg/dL (1.9-2.7); Potassium 4.1 mmol/L (3.5-5.0)
[2019-07-11] MEDS: NS 0.9% 1000 ML** 1,000 ML IV SCH (06:03)
--- NOTE | 2019-07-11 07:44 | PN ---
Subjective Date of Service: 07/11/19 Interval History: Mr. Kamara had some delirium overnight, required a safety monitor and a dose of Haldol. This morning he feels good, has no pain, no nausea, no shortness of breath, no cough, no dysuria, no flank pain. He is slightly disoriented to the timeline over the past few days and is surprised to hear that today is Thanksgiving, but easily reorients. Objective Active Medications: Amlodipine Besylate (Norvasc Tab*) 5 mg PO QAM [facility] Last Admin: 07/10/19 12:57 Dose: 5 mg Atorvastatin Calcium (Lipitor*) 40 mg PO BEDTIME [facility] Last Admin: 07/10/19 20:39 Dose: 40 mg Atropine Sulfate (Atropine 1mg/Ml Inj*) 1 mg IV PUSH Q3M PRN PRN Reason: BRADYCARDIA Haloperidol Lactate (Haldol Inj Iv/Im*) 3 mg IV SLOW PU Q4H PRN PRN Reason: AGITATION Last Admin: 07/10/19 22:54 Dose: 3 mg Sodium Chloride (Ns 0.9% 1000 Ml) 1,000 mls @ 75 mls/hr IV PER RATE [facility] Last Admin: 07/11/19 06:03 Dose: 75 mls/hr Ceftriaxone Sodium 1 gm/ (Sodium Chloride) 50 mls @ 100 mls/hr IVPB Q24H [facility] Last Admin: 07/10/19 16:36 Dose: 100 mls/hr Ondansetron HCl (Zofran Inj*) 4 mg IV Q8H PRN PRN Reason: NAUSEA Vital Signs - 8 hr 07/10/19 07/10/19 07/11/19 23:42 23:46 00:00 Temperature 99.3 F Pulse Rate 78 78 Respiratory 19 18 Rate Blood Pressure 125/69 114/75 (mmHg) O2 Sat by Pulse 95 97 Oximetry 07/11/19 07/11/19 07/11/19 00:16 00:30 00:46 Temperature Pulse Rate 77 75 76 Respiratory 19 16 17 Rate Blood Pressure 128/68 127/73 121/72 (mmHg) O2 Sat by Pulse 95 97 98 Oximetry 07/11/19 07/11/19 07/11/19 01:00 01:15 01:30 Temperature Pulse Rate 75 72 69 Respiratory 18 15 16 Rate Blood Pressure 128/76 119/74 115/72 (mmHg) O2 Sat by Pulse 96 99 98 Oximetry 07/11/19 07/11/19 07/11/19 01:45 02:00 02:15 Temperature Pulse Rate 69 80 73 Respiratory 15 18 15 Rate Blood Pressure 113/67 127/75 108/67 (mmHg) O2 Sat by Pulse 98 94 99 Oximetry 07/11/19 07/11/19 07/11/19 02:30 02:45 03:00 Temperature 99.8 F Pulse Rate 74 77 76 Respiratory 17 21 19 Rate Blood Pressure 128/66 114/72 122/65 (mmHg) O2 Sat by Pulse 95 98 97 Oximetry 07/11/19 07/11/19 07/11/19 03:15 03:18 03:30 Temperature 99.8 F Pulse Rate 80 80 Respiratory 18 19 Rate Blood Pressure 130/66 127/70 (mmHg) O2 Sat by Pulse 97 96 Oximetry 07/11/19 07/11/19 07/11/19 03:45 04:00 04:15 Temperature Pulse Rate 77 83 80 Respiratory 19 20 17 Rate Blood Pressure 132/71 138/62 123/73 (mmHg) O2 Sat by Pulse 96 96 96 Oximetry 07/11/19 07/11/19 07/11/19 04:30 04:50 05:00 Temperature Pulse Rate 78 82 69 Respiratory 20 28 16 Rate Blood Pressure 131/75 147/78 134/72 (mmHg) O2 Sat by Pulse 95 96 95 Oximetry 07/11/19 07/11/19 07/11/19 05:16 05:30 05:45 Temperature Pulse Rate 72 72 76 Respiratory 18 21 16 Rate Blood Pressure 130/72 122/78 124/76 (mmHg) O2 Sat by Pulse 92 95 92 Oximetry 07/11/19 06:00 Temperature Pulse Rate 82 Respiratory 21 Rate Blood Pressure 133/76 (mmHg) O2 Sat by Pulse 96 Oximetry Oxygen Devices in Use Now: Nasal Cannula Appearance: alert, well apearing Eyes: No Scleral Icterus Ears/Nose/Mouth/Throat: - - dry mucosa Neck: NL Appearance and Movements; NL JVP Respiratory: Symmetrical Chest Expansion and Respiratory Effort Cardiovascular: NL Sounds; No Murmurs; No JVD, - - pacer site with compressive dressing and left arm immobilizer Abdominal: NL Sounds; No Tenderness; No Distention, - - umbilical hernia, reducible Lymphatic: No Cervical Adenopathy Extremities: - - DP/PT pulses 1+, feet are warm Skin: No Rash or Ulcers Neurological: - - strength 5/5 in all extremities Result Diagrams: 07/11/19 04:50 07/11/19 04:50 Microbiology and Other Data: Microbiology 07/10/19 17:25 Legionella Urinary Antigen - Final Urine Negative Legionella Antigen Streptococcus pneumoniae Ag Screen - Final Negative S. pneumo Antigen 07/10/19 09:25 Nasal Screen MRSA (PCR) - Final Nasal Mrsa Not Detected Assess/Plan/Problems-Billing Assessment: This is a 79 year old man with history of LBBB, CVA, PVD who presented to the ED agricultural consultant 07/10 after a fall and nausea/vomiting and was found to have a third degree heart block and sepsis. A permanent pacemaker was placed 07/10. - Patient Problems (1) Complete heart block Current Visit: Yes Status: Acute Code(s): I44.2 - ATRIOVENTRICULAR BLOCK, COMPLETE SNOMED Code(s): 90718120 Comment: now s/p permanent pacer, POD #1 site is clean, on ppx abx EKG post pacer shows AV paced rhythm lyme ab negative (2) Severe sepsis Current Visit: Yes Status: Acute Code(s): A41.9 - SEPSIS, UNSPECIFIED ORGANISM; R65.20 - SEVERE SEPSIS WITHOUT SEPTIC SHOCK SNOMED Code(s): 39979573 Comment: improving; leukocytosis improving, Aries improving,and lactate resolved with a positive UA and history of BPH and nephrolithiasis (s/p TURP 2 years ago) , I am suspecting a urinary source continue ceftriaxone (day 2), no prior cultures will follow up repeat CXR today and blood cultures (3) ARIES (acute kidney injury) Current Visit: Yes Status: Acute Code(s): N17.9 - ACUTE KIDNEY FAILURE, UNSPECIFIED SNOMED Code(s): 50899684 Comment: resolved s/p IVF resuscitation (4) Thrombocytopenia Current Visit: Yes Status: Acute Code(s): D69.6 - THROMBOCYTOPENIA, UNSPECIFIED SNOMED Code(s): 472617169 Comment: can be related to ceftriaxone, sepsis timecourse not conerning for HIT no signs of bleeding, will follow (5) History of CVA (cerebrovascular accident) Current Visit: Yes Status: Acute Code(s): Z86.73 - PRSNL HX OF TIA (TIA), AND CEREB INFRC W/O RESID DEFICITS SNOMED Code(s): 190890682 Comment: continue statin, antiplatelets on hold
[2019-07-11] MEDS: amLODIPine TAB* 5 MG PO SCH (09:47)
--- NOTE | 2019-07-11 13:17 | PRO ---
CC: Dr. Liz Mathew; Dr. Corral DUAL-CHAMBER PACEMAKER INTERROGATION REPORT: DATE OF INTERROGATION: 07/11/19 MDT Device [employer] XT RUTH [id number], serial number [id number]. Date of implantation 07/10/19. FINDINGS: Current rhythm A sensed, V paced. Underlying rhythm sinus rhythm with complete heart block. Pacemaker set in a DDD mode lower rate of 60, upper tracking rate of 145 beats per minute. Atrial lead set at 3.5 volts at 0.4 milliseconds, ventricular lead set at 3.5 volts at 0.4 milliseconds. The patient A paced 2.4% of the time, ventricularly paced 97.2% of the time. Battery status 3.2 volts. Interrogation demonstrates atrial sensing threshold 2.9 millivolts, atrial lead impedance 418 ohms, ventricular lead impedance 798 ohms. Atrial lead pacing threshold 0.5 volts at 0.4 milliseconds, ventricular lead pacing threshold 0.5 volts at 0.4 milliseconds. No significant ventricular or atrial dysrhythmias noted or high rate is noted. IMPRESSION: Normally functioning dual-chamber pacemaker. Please see also chart documentation for further details. [id number]/[facility] #: [id number] [facility]
--- NOTE | 2019-07-11 14:32 | PN ---
Subjective Date of Service: 07/11/19 - CC: complete heart block and pacer implantation Interval History: The patient feels much better today. He wants to go home. No pain at incision. No SOB. Medications Active Medications: Amlodipine Besylate (Norvasc Tab*) 5 mg PO QAM [facility] Last Admin: 07/11/19 09:47 Dose: 5 mg Atorvastatin Calcium (Lipitor*) 40 mg PO BEDTIME [facility] Last Admin: 07/10/19 20:39 Dose: 40 mg Atropine Sulfate (Atropine 1mg/Ml Inj*) 1 mg IV PUSH Q3M PRN PRN Reason: BRADYCARDIA Haloperidol Lactate (Haldol Inj Iv/Im*) 3 mg IV SLOW PU Q4H PRN PRN Reason: AGITATION Last Admin: 07/10/19 22:54 Dose: 3 mg Sodium Chloride (Ns 0.9% 1000 Ml) 1,000 mls @ 75 mls/hr IV PER RATE [facility] Last Admin: 07/11/19 06:03 Dose: 75 mls/hr Ceftriaxone Sodium 1 gm/ (Sodium Chloride) 50 mls @ 100 mls/hr IVPB Q24H [facility] Last Admin: 07/10/19 16:36 Dose: 100 mls/hr Ondansetron HCl (Zofran Inj*) 4 mg IV Q8H PRN PRN Reason: NAUSEA Objective Vital Signs: Temp Pulse Resp BP Pulse Ox 99.2 F 85 18 145/86 96 07/11/19 12:00 07/11/19 13:00 07/11/19 13:00 07/11/19 13:00 07/11/19 13:00 Vital Signs - 8 hr 07/11/19 07/11/19 07/11/19 06:30 06:45 07:00 Temperature 99.6 F Pulse Rate 82 80 78 Respiratory 18 17 18 Rate Blood Pressure 109/71 131/77 118/74 (mmHg) O2 Sat by Pulse 89 96 94 Oximetry 07/11/19 07/11/19 07/11/19 07:15 07:30 08:00 Temperature 99.6 F Pulse Rate 75 84 Respiratory 17 28 23 Rate Blood Pressure 142/73 138/82 (mmHg) O2 Sat by Pulse 97 97 Oximetry 07/11/19 07/11/19 07/11/19 08:04 09:00 09:28 Temperature Pulse Rate 82 78 85 Respiratory 21 16 18 Rate Blood Pressure 139/83 (mmHg) O2 Sat by Pulse 94 95 96 Oximetry 07/11/19 07/11/19 07/11/19 09:30 09:45 10:00 Temperature Pulse Rate 83 82 85 Respiratory 19 23 20 Rate Blood Pressure 141/79 143/85 148/77 (mmHg) O2 Sat by Pulse 96 95 95 Oximetry 07/11/19 07/11/19 07/11/19 10:15 10:30 10:45 Temperature Pulse Rate 87 80 82 Respiratory 20 24 20 Rate Blood Pressure 138/75 143/78 151/87 (mmHg) O2 Sat by Pulse 96 96 96 Oximetry 07/11/19 07/11/19 07/11/19 11:00 11:01 11:15 Temperature Pulse Rate 79 85 82 Respiratory 16 31 20 Rate Blood Pressure 140/78 150/77 (mmHg) O2 Sat by Pulse 95 95 96 Oximetry 07/11/19 07/11/19 07/11/19 11:30 11:45 12:00 Temperature 99.2 F Pulse Rate 82 84 86 Respiratory 21 26 18 Rate Blood Pressure 146/79 155/88 156/84 (mmHg) O2 Sat by Pulse 95 96 97 Oximetry 07/11/19 07/11/19 07/11/19 12:01 12:15 12:30 Temperature Pulse Rate 86 84 85 Respiratory 21 20 21 Rate Blood Pressure 145/84 128/92 151/85 (mmHg) O2 Sat by Pulse 97 96 97 Oximetry 07/11/19 07/11/19 12:45 13:00 Temperature Pulse Rate 83 85 Respiratory 19 18 Rate Blood Pressure 144/82 145/86 (mmHg) O2 Sat by Pulse 97 96 Oximetry Oxygen Devices in Use Now: Nasal Cannula Appearance: Elderly male, lying in bed, comfortable, chatty. Eyes: No Scleral Icterus Ears/Nose/Mouth/Throat: Clear Oropharnyx Neck: No Thyroid Enlargement, Masses Respiratory: Symmetrical Chest Expansion and Respiratory Effort, Clear to Auscultation Cardiovascular: RRR - no rubs\ Abdominal: NL Sounds; No Tenderness; No Distention Extremities: No Edema Skin: No Rash or Ulcers, - - Incision left subclavian fossa with pressure dressing on, no evidence of infection, no ecchymosis, hematoma stable c/w yesterday. Neurological: NL Muscle Strength and Tone Laboratory Results: 07/11/19 04:50 07/11/19 04:50 INR (Anticoag Therapy) 1.29 (0.82-1.09) H 07/10/19 12:45 APTT 19.3 seconds (26.0-38.0) L 07/10/19 12:45 Total Bilirubin 0.60 mg/dL (0.2-1.0) 07/10/19 07:00 AST 23 U/L (13-39) 07/10/19 07:00 ALT 22 U/L (7-52) 07/10/19 07:00 Alkaline Phosphatase 48 U/L (34-104) 07/10/19 07:00 Total Protein 7.1 g/dL (6.4-8.9) 07/10/19 07:00 Albumin 4.0 g/dL (3.2-5.2) 07/10/19 07:00 Globulin 3.1 g/dL (2-4) 07/10/19 07:00 Albumin/Globulin Ratio 1.3 (1-3) 07/10/19 07:00 TSH 1.95 mcIU/mL (0.34-5.60) 07/10/19 07:00 07/10/19 07/10/19 07:00 12:35 Troponin I 0.09 H* 0.32 H* Microbiology 07/10/19 09:00 Urine Culture - Preliminary Urine Gram Negative Bacilli 07/10/19 08:23 Aerobic Blood Culture - Preliminary Blood Line No Growth Day 1 Anaerobic Blood Culture - Preliminary No Growth Day 1 07/10/19 08:26 Aerobic Blood Culture - Preliminary Blood Line No Growth Day 1 Anaerobic Blood Culture - Preliminary No Growth Day 1 07/10/19 17:25 Legionella Urinary Antigen - Final Urine Negative Legionella Antigen Streptococcus pneumoniae Ag Screen - Final Negative S. pneumo Antigen 07/10/19 09:25 Nasal Screen MRSA (PCR) - Final Nasal Mrsa Not Detected Verbal on GNR from lab: +Pseudomonas, culture is pending. Diagnostic Imaging: CXR 07/11/19 no pneumothorax, lead placement appears stable. EKG Data: pacer interogation: good function, no underlying R waves to sense ie remains in complete heart block. 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 POD #1 pacer implantation. Pacer: Good function. Pocket hematoma, holding plavix, stable c/w yesterday. ID Low grade fevers, elevated WBC, but improving with Kefzol to Ceftriaxone. Urine culture now + GNR, pseudomonas. BC's negative so far. Sensativities won't be back until tomorrow. Hospitalist agreed to adjust antibiotics to optimize coverage. Discussed with infant and toddler teacher and hospitalist: risk of pacer system infection if bacteremic, not just localized UTI. RI: Normalizing s/p pacer, with saldivar. CHF: s/p lasix and resolved on CXR. Likely due to CHB, bradycardia and reduced CO.
[2019-07-11] MEDS: cefTRIAXone(*) 1 GM in NS 0.9% 50 ML* 50 ML IVPB SCH (14:54)
[2019-07-11] MEDS ORDERED: ZOSYN 3.375 GM x ONE DOSE over 30 miuntes IVPB ×2 (15:00)
[2019-07-11] MEDS: Piperacillin/Tazobac ADVAN(*) 3.375 GM in NS 0.9% 100 ML* 100 ML IVPB SCH (20:28)
[2019-07-11] MEDS: Atorvastatin* 40 MG TAB PO SCH (20:35)
[2019-07-12] MEDS ORDERED: Melatonin 3 MG TAB PO ONE (00:37)
[2019-07-12] MEDS: Piperacillin/Tazobac ADVAN(*) 3.375 GM in NS 0.9% 100 ML* 100 ML IVPB SCH ×3 (04:14→18:59)
[2019-07-12 05:22] LABS: ABS Basophils 0.1 10^3/ul (0-0.2); ABS Eosinophils 0.3 10^3/ul (0-0.6); ABS Lymphocytes 1.4 10^3/ul (1.0-4.8); ABS Monocytes 0.6 10^3/ul (0-0.8); ABS Neutrophils 6.8 10^3/ul (1.5-7.7); Eosinophil % 3.2 %; Hematocrit 30 % (42-52); Hemoglobin 10.3 g/dL (14.0-18.0); Lymphocyte % 15.2 %; Mean Corpuscular HGB Conc 34 g/dL (31-36); Mean Corpuscular Hemoglobin 32 pg (27-31); Mean Corpuscular Volume 94 fL (80-94); Mean Platelet Volume 9.9 fL (7.4-10.4); Platelet Count 112 10^3/uL (150-450); Red Blood Count 3.19 10^6 /uL (4.18-5.48); Red Cell Distribution Width 14 % (10-15); White Blood Count 9.2 10^3/uL (3.5-10.8)
[2019-07-12 05:42] LABS: BUN/Creatinine Ratio 21.7 (8-20); Calcium 8.1 mg/dL (8.6-10.3); EGFR African American 108.4 (>60); EGFR Non-African American 89.6 (>60); Potassium 3.8 mmol/L (3.5-5.0)
[2019-07-12] MEDS: amLODIPine TAB* 5 MG PO SCH (09:03)
[2019-07-12] MEDS ORDERED: Furosemide IV* 10 MG/ML VIAL (40 MG) IV SLOW PU ONE (09:49)
[2019-07-12] MEDS ORDERED: Potassium Chlor TAB* 20 MEQ TAB.ER PO ONE (09:51)
--- NOTE | 2019-07-12 16:01 | PN ---
Subjective Date of Service: 07/12/19 Interval History: Patient seen and examined. Feeling well, OOB to chair. Afebrile, no chest pain, no SOB. Good appetite, diet advanced this morning. Discussed POC for today, patient anxious to start PT in anticipation of DC planning. Objective Active Medications: Amlodipine Besylate (Norvasc Tab*) 5 mg PO QAM [facility] Last Admin: 07/12/19 09:03 Dose: 5 mg Atorvastatin Calcium (Lipitor*) 40 mg PO BEDTIME [facility] Last Admin: 07/11/19 20:35 Dose: 40 mg Piperacillin Sod/Tazobactam (Sod 3.375 gm/ Sodium Chloride) 100 mls @ 25 mls/ hr IVPB Q8H [facility] Last Admin: 07/12/19 10:48 Dose: 25 mls/hr Ondansetron HCl (Zofran Inj*) 4 mg IV Q8H PRN PRN Reason: NAUSEA Vital Signs - 8 hr 07/12/19 07/12/19 07/12/19 08:00 08:30 09:00 Temperature Pulse Rate 71 70 71 Respiratory 17 15 19 Rate Blood Pressure 164/90 155/82 156/85 (mmHg) O2 Sat by Pulse 95 95 96 Oximetry 07/12/19 07/12/19 07/12/19 09:30 09:32 09:46 Temperature Pulse Rate 81 79 71 Respiratory 22 19 18 Rate Blood Pressure 189/95 175/91 156/82 (mmHg) O2 Sat by Pulse 95 95 97 Oximetry 07/12/19 07/12/19 07/12/19 10:00 10:01 10:29 Temperature Pulse Rate 74 74 77 Respiratory 17 17 21 Rate Blood Pressure 161/81 158/81 (mmHg) O2 Sat by Pulse 96 95 97 Oximetry 07/12/19 07/12/19 07/12/19 10:31 10:33 10:51 Temperature 99.8 F Pulse Rate 79 75 Respiratory 29 28 Rate Blood Pressure 151/95 144/71 (mmHg) O2 Sat by Pulse 97 96 Oximetry 07/12/19 07/12/19 07/12/19 11:00 11:25 12:00 Temperature Pulse Rate 77 76 82 Respiratory 22 18 15 Rate Blood Pressure 147/69 (mmHg) O2 Sat by Pulse 94 97 97 Oximetry 11/29/19 11/29/19 11/29/19 12:01 12:16 14:11 Temperature 98.7 F Pulse Rate 83 86 93 Respiratory 22 24 18 Rate Blood Pressure 173/78 156/76 159/80 (mmHg) O2 Sat by Pulse 95 97 98 Oximetry Oxygen Devices in Use Now: None Appearance: alert, NAD Eyes: PERRLA Ears/Nose/Mouth/Throat: Mucous Membranes Moist Neck: NL Appearance and Movements; NL JVP Respiratory: Symmetrical Chest Expansion and Respiratory Effort, Clear to Auscultation Cardiovascular: NL Sounds; No Murmurs; No JVD, RRR Abdominal: NL Sounds; No Tenderness; No Distention Extremities: No Edema, No Clubbing, Cyanosis Skin: No Rash or Ulcers Neurological: Alert and Oriented x 3 Nutrition: Taking PO's Result Diagrams: 07/12/19 05:10 07/12/19 05:10 Microbiology and Other Data: Microbiology 07/10/19 17:25 Legionella Urinary Antigen - Final Urine Negative Legionella Antigen Streptococcus pneumoniae Ag Screen - Final Negative S. 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 A permanent pacemaker was placed 07/10. - Patient Problems (1) Complete heart block Code(s): I44.2 - ATRIOVENTRICULAR BLOCK, COMPLETE SNOMED Code(s): 79994975 Comment: - POD2 PM placement with Dr. Mathew - Pressure dressing to pocket hematoma, no drainage noted, left arm precautions in place - AV pacing - Lyme ab negative (2) Pseudomonas urinary tract infection Code(s): N39.0 - URINARY TRACT INFECTION, SITE NOT SPECIFIED; B96.5 - PSEUDOMONAS (MALLEI) CAUSING DISEASES CLASSD ELSR SNOMED Code(s): 888782408 Comment: - Changed to zosyn last night based on urine culture - OK to DC saldivar today - Remains afebrile (3) Severe sepsis Code(s): A41.9 - SEPSIS, UNSPECIFIED ORGANISM; R65.20 - SEVERE SEPSIS WITHOUT SEPTIC SHOCK SNOMED Code(s): 30439976 Comment: - Source urine/pseudomonal; hx of BPH and nephrolithiasis (s/p TURP 2 years ago ) - BAY resolved, lactic acidosis resolved, leukocytosis resolved - Continue zosyn - Blood cultures NTD (4) History of CVA (cerebrovascular accident) Code(s): Z86.73 - PRSNL HX OF TIA (TIA), AND CEREB INFRC W/O RESID DEFICITS SNOMED Code(s): 340962388 Comment: - Utilizes walker - continue statin, antiplatelets on hold (5) Thrombocytopenia Code(s): D69.6 - THROMBOCYTOPENIA, UNSPECIFIED SNOMED Code(s): 576336396 Comment: - In presence of acute sepsis/infection and PM pocket hematoma (now controlled , no further bleeding noted) - Timecourse not conerning for HIT - OK to continue HSQ for DVT prophy (6) DVT prophylaxis Code(s): LCP9158 - SNOMED Code(s): 825856915 Comment: - SQ heparin (7) Full code status Code(s): Z78.9 - OTHER SPECIFIED HEALTH STATUS SNOMED Code(s): 170113952 Status and Disposition: Inpatient, disposition TBD, rehab vs home with VNS.
[2019-07-12] MEDS: Atorvastatin* 40 MG TAB PO SCH (21:58)
[2019-07-13] MEDS: Piperacillin/Tazobac ADVAN(*) 3.375 GM in NS 0.9% 100 ML* 100 ML IVPB SCH ×3 (02:58→19:12)
[2019-07-13 06:13] LABS: BUN/Creatinine Ratio 18.9 (8-20); Calcium 8.8 mg/dL (8.6-10.3); EGFR African American 92.8 (>60); EGFR Non-African American 76.7 (>60); Potassium 3.6 mmol/L (3.5-5.0)
[2019-07-13 06:32] LABS: ABS Eosinophils 0.4 10^3/ul (0-0.6); ABS Lymphocytes 1.2 10^3/ul (1.0-4.8); ABS Monocytes 0.6 10^3/ul (0-0.8); ABS Neutrophils 7.4 10^3/ul (1.5-7.7); Eosinophil % 4.1 %; Hematocrit 36 % (42-52); Hemoglobin 12.5 g/dL (14.0-18.0); Lymphocyte % 12.6 %; Mean Corpuscular HGB Conc 34 g/dL (31-36); Mean Corpuscular Hemoglobin 32 pg (27-31); Mean Corpuscular Volume 94 fL (80-94); Mean Platelet Volume 9.9 fL (7.4-10.4); Platelet Count 127 10^3/uL (150-450); Red Blood Count 3.88 10^6 /uL (4.18-5.48); Red Cell Distribution Width 14 % (10-15); White Blood Count 9.6 10^3/uL (3.5-10.8)
[2019-07-13] MEDS: amLODIPine TAB* 5 MG PO SCH (08:38)
[2019-07-13] MEDS ORDERED: amLODIPine TAB* 5 MG PO ONE (15:13)
--- NOTE | 2019-07-13 17:27 | PN ---
Subjective Date of Service: 07/13/19 Interval History: Patient seen and eexamined. No acute overnight events. BP somewhat elevated. No seepage through pressure dressing. Denies SOB, no chest pain. No urinary complaints. No fevers or chills. Objective Active Medications: Amlodipine Besylate (Norvasc Tab*) 10 mg PO QAM [facility] Atorvastatin Calcium (Lipitor*) 40 mg PO BEDTIME [facility] Last Admin: 07/12/19 21:58 Dose: 40 mg Piperacillin Sod/Tazobactam (Sod 3.375 gm/ Sodium Chloride) 100 mls @ 25 mls/ hr IVPB Q8H [facility] Last Admin: 07/13/19 10:46 Dose: 25 mls/hr Ondansetron HCl (Zofran Inj*) 4 mg IV Q8H PRN PRN Reason: NAUSEA Vital Signs - 8 hr 07/13/19 07/13/19 11:15 16:26 Temperature 98.9 F 98.5 F Pulse Rate 87 85 Respiratory 20 16 Rate Blood Pressure 163/69 153/77 (mmHg) O2 Sat by Pulse 96 97 Oximetry Oxygen Devices in Use Now: None Appearance: alert, NAD Eyes: PERRLA Ears/Nose/Mouth/Throat: NL Teeth, Lips, Gums, Mucous Membranes Moist Neck: NL Appearance and Movements; NL JVP Respiratory: Symmetrical Chest Expansion and Respiratory Effort, Clear to Auscultation Cardiovascular: NL Sounds; No Murmurs; No JVD, RRR, No Edema Abdominal: NL Sounds; No Tenderness; No Distention Extremities: No Edema Skin: No Nodules or Sclerosis, - - pressure dressing CDI left chest Nutrition: Taking PO's Result Diagrams: 07/13/19 05:41 07/13/19 05:41 Microbiology and Other Data: Microbiology 07/10/19 17:25 Legionella Urinary Antigen - Final Urine Negative Legionella Antigen Streptococcus pneumoniae Ag Screen - Final Negative S. 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 A permanent pacemaker was placed 07/10. - Patient Problems (1) Complete heart block Code(s): I44.2 - ATRIOVENTRICULAR BLOCK, COMPLETE SNOMED Code(s): 98237057 Comment: - POD3 PM placement with Dr. Mathew - Pressure dressing to pocket hematoma changed today by Dr. Mathew, no drainage noted, left arm precautions in place - Increased amlodipine today to 10mg to decrease chance of further bleeding into hematoma - AV pacing - Lyme ab negative (2) Pseudomonas urinary tract infection Code(s): N39.0 - URINARY TRACT INFECTION, SITE NOT SPECIFIED; B96.5 - PSEUDOMONAS (MALLEI) CAUSING DISEASES CLASSD ELSR SNOMED Code(s): 529972866 Comment: - Continue zosyn based on urine culture - Saldivar DC'd , voiding freely, should f/u with urology after discharge given hx of TURP and had retention, although retention may have been secondary to mucous in urine after saldivar placed - Remains afebrile (3) Severe sepsis Code(s): A41.9 - SEPSIS, UNSPECIFIED ORGANISM; R65.20 - SEVERE SEPSIS WITHOUT SEPTIC SHOCK SNOMED Code(s): 63289078 Comment: - Source urine/pseudomonal; hx of BPH and nephrolithiasis (s/p TURP 2 years ago ) - BAY resolved, lactic acidosis resolved, leukocytosis resolved - Continue zosyn - Blood cultures NTD (4) History of CVA (cerebrovascular accident) Code(s): Z86.73 - PRSNL HX OF TIA (TIA), AND CEREB INFRC W/O RESID DEFICITS SNOMED Code(s): 712038964 Comment: - Utilizes walker - continue statin, antiplatelets on hold - PT eval (5) Thrombocytopenia Code(s): D69.6 - THROMBOCYTOPENIA, UNSPECIFIED SNOMED Code(s): 173199328 Comment: - In presence of acute sepsis/infection and PM pocket hematoma (now controlled , no further bleeding noted) - Timecourse not conerning for HIT - OK to continue HSQ for DVT prophy - PLTS 127 today, slight improvement (6) DVT prophylaxis Code(s): CQG3212 - SNOMED Code(s): 858971537 Comment: - SQ heparin (7) Full code status Code(s): Z78.9 - OTHER SPECIFIED HEALTH STATUS SNOMED Code(s): 299543641 Status and Disposition: Inpatient, disposition TBD, rehab vs home with VNS after cleared by cardiology.
[2019-07-13] MEDS: Atorvastatin* 40 MG TAB PO SCH (21:06)
[2019-07-14] MEDS: Piperacillin/Tazobac ADVAN(*) 3.375 GM in NS 0.9% 100 ML* 100 ML IVPB SCH ×3 (03:02→20:00)
[2019-07-14] MEDS: amLODIPine TAB* 5 MG PO SCH (09:35)
--- NOTE | 2019-07-14 11:27 | PN ---
Subjective Date of Service: 07/14/19 Interval History: Mr. Kamara is feeling well today. He reports feeling weak, but he just moved from sitting on the edge of the bed to laying down. He otherwise denies complaints. Denies CP, SOB, abdominal pain. Good appetite. No concerns from nursing. Family History: Unchanged from Admission Social History: Unchanged from Admission Past Medical History: Unchanged from Admission Objective Active Medications: Amlodipine Besylate (Norvasc Tab*) 10 mg PO QAM [facility] Atorvastatin Calcium (Lipitor*) 40 mg PO BEDTIME [facility] Piperacillin Sod/Tazobactam (Sod 3.375 gm/ Sodium Chloride) 100 mls @ 25 mls/ hr IVPB Q8H [facility] Ondansetron HCl (Zofran Inj*) 4 mg IV Q8H PRN NAUSEA Vital Signs - 8 hr 07/14/19 07/14/19 07/14/19 03:54 07:00 08:00 Temperature 98.1 F 97.7 F Pulse Rate 73 77 Respiratory 21 20 20 Rate Blood Pressure 160/78 155/82 (mmHg) O2 Sat by Pulse 97 93 Oximetry Oxygen Devices in Use Now: None Appearance: Elderly male lying in bed in NAD Ears/Nose/Mouth/Throat: Mucous Membranes Moist Neck: NL Appearance and Movements; NL JVP, Trachea Midline Respiratory: Symmetrical Chest Expansion and Respiratory Effort, Clear to Auscultation Cardiovascular: NL Sounds; No Murmurs; No JVD, RRR Abdominal: NL Sounds; No Tenderness; No Distention Extremities: No Edema Skin: - - Pressure dressing intact to left upper chest Neurological: Alert and Oriented x 3 Lines/Tubes/Other Access: Clean, Dry and Intact Peripheral IV Nutrition: Taking PO's Result Diagrams: 07/13/19 05:41 07/13/19 05:41 Assess/Plan/Problems-Billing Assessment: Mr. 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 Permanent pacemaker was placed 07/10. - Patient Problems (1) Complete heart block Code(s): I44.2 - ATRIOVENTRICULAR BLOCK, COMPLETE Comment: - POD #[address] Mathew - Negative Lyme - Pressure dressing to pocket hematoma changed 07/[address] Mathew, no drainage noted, left arm precautions in place - Increased amlodipine to decrease chance of further bleeding into hematoma - Tele shows AV pacing (2) Pseudomonas urinary tract infection Code(s): N39.0 - URINARY TRACT INFECTION, SITE NOT SPECIFIED; B96.5 - PSEUDOMONAS (MALLEI) CAUSING DISEASES CLASSD ELSWHR Comment: - Voiding well without Fisher - Would benefit from f/u with Urology after d/c - Continue Zosyn (day 37) (3) Severe sepsis Code(s): A41.9 - SEPSIS, UNSPECIFIED ORGANISM; R65.20 - SEVERE SEPSIS WITHOUT SEPTIC SHOCK Comment: - Resolved - Source is UTI - Blood cultures NTD (4) BAY (acute kidney injury) Code(s): N17.9 - ACUTE KIDNEY FAILURE, UNSPECIFIED Comment: - Resolved with IVF (5) Thrombocytopenia Code(s): D69.6 - THROMBOCYTOPENIA, UNSPECIFIED Comment: - Improving - In presence of acute sepsis/infection and PM pocket hematoma (now controlled, no further bleeding noted) - Timecourse not conerning for HIT (6) History of CVA (cerebrovascular accident) Code(s): Z86.73 - PRSNL HX OF TIA (TIA), AND CEREB INFRC W/O RESID DEFICITS Comment: - Utilizes walker - PT eval, but will likely need STEPHANIE - Continue atorvastatin (7) HTN (hypertension) Code(s): I10 - ESSENTIAL (PRIMARY) HYPERTENSION Comment: - Slightly hypertensive - Continue amlodipine (8) DVT prophylaxis Comment: - SCDs only in the setting of hematoma and thrombocytopenia (9) Full code status Code(s): Z78.9 - OTHER SPECIFIED HEALTH STATUS Comment: Status and Disposition: Inpatient. Anticpate d/c home with VNS vs STEPHANIE when medically stable and cleared by Cardiology, hopefully 2 more days. Attending: Zoya Arce
[2019-07-14] MEDS: Atorvastatin* 40 MG TAB PO SCH (21:12)
[2019-07-15] MEDS: Piperacillin/Tazobac ADVAN(*) 3.375 GM in NS 0.9% 100 ML* 100 ML IVPB SCH ×3 (02:12→19:24)
[2019-07-15 06:17] LABS: ABS Eosinophils 0.4 10^3/ul (0-0.6); ABS Lymphocytes 1.4 10^3/ul (1.0-4.8); ABS Monocytes 0.8 10^3/ul (0-0.8); ABS Neutrophils 5.3 10^3/ul (1.5-7.7); Eosinophil % 4.5 %; Hematocrit 36 % (42-52); Hemoglobin 12.2 g/dL (14.0-18.0); Lymphocyte % 18.3 %; Mean Corpuscular HGB Conc 34 g/dL (31-36); Mean Corpuscular Hemoglobin 32 pg (27-31); Mean Corpuscular Volume 94 fL (80-94); Mean Platelet Volume 9.3 fL (7.4-10.4); Nucleated Red Blood Cells % 0.1; Platelet Count 130 10^3/uL (150-450); Red Blood Count 3.85 10^6 /uL (4.18-5.48); Red Cell Distribution Width 14 % (10-15); White Blood Count 7.9 10^3/uL (3.5-10.8)
[2019-07-15] MEDS: amLODIPine TAB* 5 MG PO SCH (08:08)
--- NOTE | 2019-07-15 09:14 | PN ---
Subjective Date of Service: 07/15/19 - Troponin elevation, CHB, UTI s/p PPM Interval History: No events last night. Patient working with physical therapy upon entering room. States he will be discharged to rehab. Denies chest pain, sob, device site pain/ tenderness or dizziness. Does report post nasal drip. Offers no other complaints but is inquiring about discharge. . Medications Active Medications: Amlodipine Besylate (Norvasc Tab*) 10 mg PO QAM [facility] Last Admin: 07/15/19 08:08 Dose: 10 mg Atorvastatin Calcium (Lipitor*) 40 mg PO BEDTIME [facility] Last Admin: 07/14/19 21:12 Dose: 40 mg Piperacillin Sod/Tazobactam (Sod 3.375 gm/ Sodium Chloride) 100 mls @ 25 mls/ hr IVPB Q8H [facility] Last Admin: 07/15/19 02:12 Dose: 25 mls/hr Ondansetron HCl (Zofran Inj*) 4 mg IV Q8H PRN PRN Reason: NAUSEA Objective Vital Signs: Temp Pulse Resp BP Pulse Ox 97.9 F 75 16 155/79 95 07/15/19 07:15 07/15/19 07:15 07/15/19 08:00 07/15/19 07:15 07/15/19 07:15 Oxygen Devices in Use Now: None Appearance: Elderly male, sitting in chair, comfortable, chatty. Eyes: No Scleral Icterus Ears/Nose/Mouth/Throat: Clear Oropharnyx Neck: No Thyroid Enlargement, Masses Respiratory: Symmetrical Chest Expansion and Respiratory Effort, Clear to Auscultation Cardiovascular: RRR - no rubs, 2/6 systolic murmur auscultated at right sternal border. Abdominal: NL Sounds; No Tenderness; No Distention Extremities: No Edema Skin: No Rash or Ulcers, - - Incision left subclavian fossa with pressure dressing on, no evidence of infection, no ecchymosis, hematoma appears to have resolved. wound edges are well approximated with wilber. Neurological: NL Muscle Strength and Tone Lines/Tubes/Other Access: Clean, Dry and Intact Peripheral IV Laboratory Results: 07/15/19 05:46 07/13/19 05:41 INR (Anticoag Therapy) 1.29 (0.82-1.09) H 07/10/19 12:45 APTT 19.3 seconds (26.0-38.0) L 07/10/19 12:45 Total Bilirubin 0.60 mg/dL (0.2-1.0) 07/10/19 07:00 AST 23 U/L (13-39) 07/10/19 07:00 ALT 22 U/L (7-52) 07/10/19 07:00 Alkaline Phosphatase 48 U/L (34-104) 07/10/19 07:00 Total Protein 7.1 g/dL (6.4-8.9) 07/10/19 07:00 Albumin 4.0 g/dL (3.2-5.2) 07/10/19 07:00 Globulin 3.1 g/dL (2-4) 07/10/19 07:00 Albumin/Globulin Ratio 1.3 (1-3) 07/10/19 07:00 TSH 1.95 mcIU/mL (0.34-5.60) 07/10/19 07:00 07/10/19 07/10/19 07:00 12:35 Troponin I 0.09 H* 0.32 H* Laboratory Results - last 24 hr 07/15/19 05:46 WBC 7.9 RBC 3.85 L Hgb 12.2 L Hct 36 L MCV 94 MCH 32 H MCHC 34 RDW 14 Plt Count 130 L MPV 9.3 Neut % (Auto) 67.1 Lymph % (Auto) 18.3 Emery % (Auto) 9.7 Eos % (Auto) 4.5 Baso % (Auto) 0.4 Absolute Neuts (auto) 5.3 Absolute Lymphs (auto) 1.4 Absolute Monos (auto) 0.8 Absolute Eos (auto) 0.4 Absolute Basos (auto) 0.0 Absolute Nucleated RBC 0.0 Nucleated RBC % 0.1 Diagnostic Imaging: CXR 07/11/19 no pneumothorax, lead placement appears stable. 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 *Referring Physician: * Alex Chavarria MD *Reading Physician: * Liz Mathew MD Indications: Abnormal EKG. Murmur. History: Left bundle branch block. Transient ischemic attack. Cerebrovascular accident. Risk factors: Hypertension. Dyslipidemia. Conclusions Summary: - The patient was in complete heart block at the time of the study. - Left ventricle: The cavity size is normal. Wall thickness is moderately increased. Systolic function is normal. The estimated ejection fraction is 60-65%. - Mitral valve: The findings are consistent with mild stenosis. There is mild regurgitation. The mean diastolic gradient is 4.0 mm Hg. The valve area is 1.9 cm^2. The valve area by pressure half-time is 1.6 cm^2. - Aortic valve: The findings are consistent with mild stenosis. The mean systolic gradient is 9.0 mm Hg. The LVOT to aortic valve VTI ratio is 0.7. The valve area by the velocity-time integral method is 2.10 cm^2. The valve area by the peak velocity method is 2.10 cm^2. - Pulmonary arteries: Systolic pressure can not be accurately estimated. This report is only to be considered final once signed by the Provider(s) as displayed in the "<Electronically Signed by >" field (s). Absence of a signature indicates the report is in a draft status and still needs to be finalized. In the event this document was created by someone other than the signing Provider, the individual initiating the document will be listed in the "Entered by:" or "Dictated by:" león. EKG Data: pacer interrogation: 07/11/2019; AP 2.4%, IT TRAINER 97.2%. underlying rhythm SR-CHB. atrial pacing threshold 0.4 ms., RV pacing threshold 0.4ms. Assessment/Plan #1 h/o LBBB presented with CHB s/p DC PPM 07/10/2018;course complicated by pocket hematoma. Pressure dressing removed today. Hematoma has resolved. 4X4 dressing applied. device site intact, non tender to palpation. He will need to wear left arm immobilizer as directed for 6 weeks. No lifting left arm above shoulder x6 weeks, no lifting more than 5-10 lbs until further directed. He may shower however, is not able to take a bath or soak device wound site. He will need to follow up with our practice 7-10 days after implant for wound check. May resume Plavix. #2 Troponin elevation; likely due to above #1. Denies chest pain. Echo did not mention RWMA. He has known h/o carotid disease and prior CVA. He will need to f/ u outpatient with Dr. Chavarria for consideration of eventual ischemic eval. On statin therapy. Historically on Plavix 75mg/day due to h/o CVA. #3 BAY; creat 2.23 upon presentation. renal function has normalized. Differ to primary team #4 h/o HTN; on norvasc therapy. #5 h/o CVA with prior carotid artery stenosis. Historically on Plavix 75mg/day which was held due to pocket hematoma. given hematoma has resolved. may resume Plavix 75mg/day. #6 disposition pending course. Will update Dr. Sweet and likely sign off of case. Patient being treated for UTI ( pesudomonas) blood cultures were negative for growth. Attending: Mingo Sweet
[2019-07-15] MEDS ORDERED: Lisinopril TAB* 10 MG PO ONE (13:59)
--- NOTE | 2019-07-15 14:02 | PN ---
Subjective Date of Service: 07/15/19 Interval History: Mr. Kamara is feeling well today. He was ambulating this morning and felt "spunky" then had an incident of not making it to the toilet on time and that is upsetting to him. Denies CP, SOB, N/V. Agreeable to rehab as he knows his will not be able to care for him at home. No concerns from nursing. Family History: Unchanged from Admission Social History: Unchanged from Admission Past Medical History: Unchanged from Admission Objective Active Medications: Amlodipine Besylate (Norvasc Tab*) 10 mg PO QAM [facility] Atorvastatin Calcium (Lipitor*) 40 mg PO BEDTIME [facility] Clopidogrel Bisulfate (Plavix Tab*) 75 mg PO QAM [facility] Piperacillin Sod/Tazobactam (Sod 3.375 gm/ Sodium Chloride) 100 mls @ 25 mls/ hr IVPB Q8H [facility] Ondansetron HCl (Zofran Inj*) 4 mg IV Q8H PRN NAUSEA Vital Signs - 8 hr 07/15/19 07/15/19 07/15/19 07:15 08:00 11:15 Temperature 97.9 F 97.7 F Pulse Rate 75 81 Respiratory 18 16 18 Rate Blood Pressure 155/79 144/79 (mmHg) O2 Sat by Pulse 95 97 Oximetry Oxygen Devices in Use Now: None Appearance: Elderly male lying in bed in NAD Ears/Nose/Mouth/Throat: Mucous Membranes Moist Neck: NL Appearance and Movements; NL JVP, Trachea Midline Respiratory: Symmetrical Chest Expansion and Respiratory Effort, Clear to Auscultation Cardiovascular: NL Sounds; No Murmurs; No JVD Abdominal: NL Sounds; No Tenderness; No Distention Extremities: - - Mild nonpitting BLE Neurological: Alert and Oriented x 3 Lines/Tubes/Other Access: Clean, Dry and Intact Peripheral IV Nutrition: Taking PO's Result Diagrams: 07/15/19 05:46 07/13/19 05:41 Assess/Plan/Problems-Billing Assessment: Mr. 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 Permanent pacemaker was placed 07/10. - Patient Problems (1) Complete heart block Code(s): I44.2 - ATRIOVENTRICULAR BLOCK, COMPLETE Comment: - POD #[address] Mathew - Negative Lyme - Pressure dressing to pocket hematoma removed today by Cardiology - Tele shows AV pacing - Increased amlodipine to decrease chance of further bleeding into hematoma (2) Pseudomonas urinary tract infection Code(s): N39.0 - URINARY TRACT INFECTION, SITE NOT SPECIFIED; B96.5 - PSEUDOMONAS (MALLEI) CAUSING DISEASES CLASSD ELSWHR Comment: - Voiding well without Fisher - Would benefit from f/u with Urology after d/c - Will need to complete course of IV antibiotics in the hospital based on sensitivities (resistant to fluoroquinolones) - Continue Zosyn (day 4/7) (3) Severe sepsis Code(s): A41.9 - SEPSIS, UNSPECIFIED ORGANISM; R65.20 - SEVERE SEPSIS WITHOUT SEPTIC SHOCK Comment: - Resolved - Source is UTI - Blood cultures NTD (4) BAY (acute kidney injury) Code(s): N17.9 - ACUTE KIDNEY FAILURE, UNSPECIFIED Comment: - Resolved with IVF (5) Thrombocytopenia Code(s): D69.6 - THROMBOCYTOPENIA, UNSPECIFIED Comment: - Improving - In presence of acute sepsis/infection and PM pocket hematoma (now controlled, no further bleeding noted) - Timecourse not conerning for HIT (6) History of CVA (cerebrovascular accident) Code(s): Z86.73 - PRSNL HX OF TIA (TIA), AND CEREB INFRC W/O RESID DEFICITS Comment: - Utilizes walker - PT eval, but will likely need STEPHANIE - Continue atorvastatin (7) HTN (hypertension) Code(s): I10 - ESSENTIAL (PRIMARY) HYPERTENSION Comment: - Slightly hypertensive - Continue amlodipine; start lisinopril (8) DVT prophylaxis Comment: - SCDs only in the setting of hematoma and thrombocytopenia (9) Full code status Code(s): Z78.9 - OTHER SPECIFIED HEALTH STATUS Comment: Status and Disposition: Inpatient. Anticpate d/c to [facility] when course of IV antibiotics is complete. Attending: Dylan Crook
[2019-07-15] MEDS: Atorvastatin* 40 MG TAB PO SCH (19:24)
[2019-07-16] MEDS: Piperacillin/Tazobac ADVAN(*) 3.375 GM in NS 0.9% 100 ML* 100 ML IVPB SCH ×3 (04:30→19:13)
[2019-07-16] MEDS: Lisinopril TAB* 10 MG PO SCH (08:12)
[2019-07-16] MEDS: amLODIPine TAB* 5 MG PO SCH (08:12)
--- NOTE | 2019-07-16 13:28 | PN ---
Subjective Date of Service: 07/16/19 Interval History: Mr. Kamara is not feeling particularly well today. He is very tired. Denies CP or SOB. Did not sleep well overnight as there were "nurses giggling" outside his room. This is frustrating to him. He is upset that he will need to remain in the hospital for IV antibiotics, but is agreeable. He is looking forward to going to rehab so he can eventually go home. No concerns from nursing. Family History: Unchanged from Admission Social History: Unchanged from Admission Past Medical History: Unchanged from Admission Objective Active Medications: Amlodipine Besylate (Norvasc Tab*) 10 mg PO QAM [facility] Atorvastatin Calcium (Lipitor*) 40 mg PO BEDTIME [facility] Clopidogrel Bisulfate (Plavix Tab*) 75 mg PO QAM [facility] Piperacillin Sod/Tazobactam (Sod 3.375 gm/ Sodium Chloride) 100 mls @ 25 mls/ hr IVPB Q8H [facility] Lisinopril (Prinivil Tab*) 10 mg PO DAILY [facility] Ondansetron HCl (Zofran Inj*) 4 mg IV Q8H PRN NAUSEA Vital Signs - 8 hr 07/16/19 07/16/19 07/16/19 06:51 07:15 11:15 Temperature 97.7 F 97.9 F Pulse Rate 77 80 Respiratory 16 16 16 Rate Blood Pressure 136/78 117/61 (mmHg) O2 Sat by Pulse 97 95 Oximetry Oxygen Devices in Use Now: None Appearance: Elderly male lying in bed in NAD Ears/Nose/Mouth/Throat: Mucous Membranes Moist Neck: NL Appearance and Movements; NL JVP, Trachea Midline Respiratory: Symmetrical Chest Expansion and Respiratory Effort, Clear to Auscultation Cardiovascular: NL Sounds; No Murmurs; No JVD, RRR Abdominal: NL Sounds; No Tenderness; No Distention Extremities: No Edema Skin: - - Mepilex intact to left upper chest Neurological: Alert and Oriented x 3 Lines/Tubes/Other Access: Clean, Dry and Intact Peripheral IV Nutrition: Taking PO's Result Diagrams: 07/15/19 05:46 07/13/19 05:41 Assess/Plan/Problems-Billing Assessment: Mr. 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 Permanent pacemaker was placed 07/10. - Patient Problems (1) Complete heart block Code(s): I44.2 - ATRIOVENTRICULAR BLOCK, COMPLETE Comment: - POD #[address] Mathew - Negative Lyme - Pressure dressing to pocket hematoma removed today by Cardiology - Tele shows AV pacing - Increased amlodipine to decrease chance of further bleeding into hematoma (2) Pseudomonas urinary tract infection Code(s): N39.0 - URINARY TRACT INFECTION, SITE NOT SPECIFIED; B96.5 - PSEUDOMONAS (MALLEI) CAUSING DISEASES CLASSD ELS[facility] Comment: - Voiding well without Fisher - Would benefit from f/u with Urology after d/c - Will need to complete full course of IV antibiotics in the hospital based on sensitivities (resistant to fluoroquinolones) - Continue Zosyn (day 5/7) (3) Severe sepsis Code(s): A41.9 - SEPSIS, UNSPECIFIED ORGANISM; R65.20 - SEVERE SEPSIS WITHOUT SEPTIC SHOCK Comment: - Resolved - Source is UTI - Blood cultures NTD (4) BAY (acute kidney injury) Code(s): N17.9 - ACUTE KIDNEY FAILURE, UNSPECIFIED Comment: - Resolved with IVF (5) Thrombocytopenia Code(s): D69.6 - THROMBOCYTOPENIA, UNSPECIFIED Comment: - Improving - In presence of acute sepsis/infection and PM pocket hematoma (now controlled, no further bleeding noted) - Timecourse not conerning for HIT (6) History of CVA (cerebrovascular accident) Code(s): Z86.73 - PRSNL HX OF TIA (TIA), AND CEREB INFRC W/O RESID DEFICITS Comment: - Utilizes walker - PT eval, but will likely need [facility] - Continue atorvastatin (7) HTN (hypertension) Code(s): I10 - ESSENTIAL (PRIMARY) HYPERTENSION Comment: - Normotensive - Continue amlodipine, lisinopril (8) DVT prophylaxis Comment: - SCDs only in the setting of hematoma and thrombocytopenia (9) Full code status Code(s): Z78.9 - OTHER SPECIFIED HEALTH STATUS Comment: Status and Disposition: Inpatient. Anticpate d/c to [facility] when course of IV antibiotics is complete, 2 more days. Attending: Dylan Crook
[2019-07-16] MEDS: Atorvastatin* 40 MG TAB PO SCH (22:16)
[2019-07-16] MEDS: Melatonin 3 MG TAB PO PRN (22:16)
[2019-07-17] MEDS: Piperacillin/Tazobac ADVAN(*) 3.375 GM in NS 0.9% 100 ML* 100 ML IVPB SCH ×3 (03:15→19:29)
[2019-07-17] MEDS: Lisinopril TAB* 10 MG PO SCH (10:43)
[2019-07-17] MEDS: amLODIPine TAB* 5 MG PO SCH (10:44)
[2019-07-17] MEDS: Clopidogrel TAB* 75 MG PO SCH (10:44)
--- NOTE | 2019-07-17 16:05 | PN ---
Subjective Date of Service: 07/17/19 Interval History: Patient reports that he is feeling well. Denies chest pain or shortness of breath. Denies abd pain n/v. Does report some loose stools. Family History: Unchanged from Admission Social History: Unchanged from Admission Past Medical History: Unchanged from Admission Objective Active Medications: Amlodipine Besylate (Norvasc Tab*) 10 mg PO QAM [facility] Last Admin: 07/17/19 10:44 Dose: 10 mg Atorvastatin Calcium (Lipitor*) 40 mg PO BEDTIME [facility] Last Admin: 07/16/19 22:16 Dose: 40 mg Clopidogrel Bisulfate (Plavix Tab*) 75 mg PO QAM [facility] Last Admin: 07/17/19 10:44 Dose: 75 mg Piperacillin Sod/Tazobactam (Sod 3.375 gm/ Sodium Chloride) 100 mls @ 25 mls/ hr IVPB Q8H [facility] Last Admin: 07/17/19 10:44 Dose: 25 mls/hr Lisinopril (Prinivil Tab*) 10 mg PO DAILY [facility] Last Admin: 07/17/19 10:43 Dose: 10 mg Melatonin (Melatonin) 3 mg PO BEDTIME PRN PRN Reason: SLEEP Last Admin: 07/16/19 22:16 Dose: 3 mg Ondansetron HCl (Zofran Inj*) 4 mg IV Q8H PRN PRN Reason: NAUSEA Vital Signs - 8 hr 07/17/19 07/17/19 08:00 11:15 Temperature 98.2 F Pulse Rate 78 Respiratory 16 18 Rate Blood Pressure 141/64 (mmHg) O2 Sat by Pulse 98 Oximetry Oxygen Devices in Use Now: None Appearance: alert , resting in bed no acute distress Eyes: No Scleral Icterus Ears/Nose/Mouth/Throat: Clear Oropharnyx, Mucous Membranes Moist Neck: NL Appearance and Movements; NL JVP, Trachea Midline Respiratory: Symmetrical Chest Expansion and Respiratory Effort, Clear to Auscultation Cardiovascular: NL Sounds; No Murmurs; No JVD, No Edema Abdominal: NL Sounds; No Tenderness; No Distention Extremities: No Edema, No Clubbing, Cyanosis Skin: No Rash or Ulcers Neurological: Alert and Oriented x 3 Nutrition: Taking PO's Result Diagrams: 07/15/19 05:46 07/13/19 05:41 Microbiology and Other Data: Microbiology 07/10/19 17:25 Legionella Urinary Antigen - Final Urine Negative Legionella Antigen Streptococcus pneumoniae Ag Screen - Final Negative S. pneumo Antigen 07/10/19 09:25 Nasal Screen MRSA (PCR) - Final Nasal Mrsa Not Detected Assess/Plan/Problems-Billing Assessment: Mr. 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 Permanent pacemaker was placed 07/10. - Patient Problems (1) Complete heart block Current Visit: Yes Status: Acute Code(s): I44.2 - ATRIOVENTRICULAR BLOCK, COMPLETE SNOMED Code(s): 57121844 Comment: - POD #[address] Mathew - Negative Lyme - Pressure dressing to pocket hematoma removed today by Cardiology - Tele shows AV pacing - Increased amlodipine to decrease chance of further bleeding into hematoma (2) Pseudomonas urinary tract infection Current Visit: Yes Status: Acute Code(s): N39.0 - URINARY TRACT INFECTION, SITE NOT SPECIFIED; B96.5 - PSEUDOMONAS (MALLEI) CAUSING DISEASES CLASSD ELSWHR SNOMED Code(s): 143844025 Comment: - Voiding well without Fisher - Would benefit from f/u with Urology after d/c - Will need to complete full course of IV antibiotics in the hospital based on sensitivities (resistant to fluoroquinolones) - Continue Zosyn (day 5/7) (3) BAY (acute kidney injury) Current Visit: Yes Status: Acute Code(s): N17.9 - ACUTE KIDNEY FAILURE, UNSPECIFIED SNOMED Code(s): 73689971 Comment: - Resolved with IVF (4) Severe sepsis Current Visit: Yes Status: Acute Code(s): A41.9 - SEPSIS, UNSPECIFIED ORGANISM; R65.20 - SEVERE SEPSIS WITHOUT SEPTIC SHOCK SNOMED Code(s): 33251050 Comment: - Resolved - Source is UTI - Blood cultures NTD (5) Thrombocytopenia Current Visit: Yes Status: Acute Code(s): D69.6 - THROMBOCYTOPENIA, UNSPECIFIED SNOMED Code(s): 124666511 Comment: - Improving - In presence of acute sepsis/infection and PM pocket hematoma (now controlled, no further bleeding noted) - Timecourse not conerning for HIT (6) HTN (hypertension) Current Visit: No Status: Acute Code(s): I10 - ESSENTIAL (PRIMARY) HYPERTENSION SNOMED Code(s): 57648243 Comment: - Normotensive - Continue amlodipine, lisinopril (7) Hyperlipidemia Current Visit: No Status: Acute Code(s): E78.5 - HYPERLIPIDEMIA, UNSPECIFIED SNOMED Code(s): 11709080 Comment: LDL 61, continue lipitor. (8) History of CVA (cerebrovascular accident) Current Visit: Yes Status: Acute Code(s): Z86.73 - PRSNL HX OF TIA (TIA), AND CEREB INFRC W/O RESID DEFICITS SNOMED Code(s): 798849819 Comment: - Utilizes walker - Continue atorvastatin - progressing well - likely be able to return home after full course of antibiotics (9) DVT prophylaxis Current Visit: No Status: Acute Code(s): JIQ8204 - SNOMED Code(s): 198655243 Comment: - SCDs only in the setting of hematoma and thrombocytopenia (10) Full code status Current Visit: No Status: Acute Code(s): Z78.9 - OTHER SPECIFIED HEALTH STATUS SNOMED Code(s): 914207920 Comment: Status and Disposition: Inpatient. Anticpate d/c to home when course of IV antibiotics is complete, 1 more day.
[2019-07-17] MEDS: Atorvastatin* 40 MG TAB PO SCH (22:37)
[2019-07-17] MEDS: Melatonin 3 MG TAB PO PRN (22:37)
[2019-07-18] MEDS: Piperacillin/Tazobac ADVAN(*) 3.375 GM in NS 0.9% 100 ML* 100 ML IVPB SCH ×3 (02:18→19:45)
[2019-07-18] MEDS: amLODIPine TAB* 5 MG PO SCH (10:23)
[2019-07-18] MEDS: Clopidogrel TAB* 75 MG PO SCH (10:23)
[2019-07-18] MEDS: Lisinopril TAB* 10 MG PO SCH (10:23)
--- NOTE | 2019-07-18 14:49 | PN ---
Subjective Date of Service: 07/18/19 Interval History: Reports that he slept well last night. Denies chest pain or shortness of breath. Denies fever or chills . Denies abd pian n/v/d. Family History: Unchanged from Admission Social History: Unchanged from Admission Past Medical History: Unchanged from Admission Objective Active Medications: Amlodipine Besylate (Norvasc Tab*) 10 mg PO QAM [facility] Last Admin: 07/18/19 10:23 Dose: 10 mg Atorvastatin Calcium (Lipitor*) 40 mg PO BEDTIME [facility] Last Admin: 07/17/19 22:37 Dose: 40 mg Clopidogrel Bisulfate (Plavix Tab*) 75 mg PO QAM [facility] Last Admin: 07/18/19 10:23 Dose: 75 mg Piperacillin Sod/Tazobactam (Sod 3.375 gm/ Sodium Chloride) 100 mls @ 25 mls/ hr IVPB Q8H [facility] Last Admin: 07/18/19 11:31 Dose: 25 mls/hr Lisinopril (Prinivil Tab*) 10 mg PO DAILY [facility] Last Admin: 07/18/19 10:23 Dose: 10 mg Melatonin (Melatonin) 3 mg PO BEDTIME PRN PRN Reason: SLEEP Last Admin: 07/17/19 22:37 Dose: 3 mg Ondansetron HCl (Zofran Inj*) 4 mg IV Q8H PRN PRN Reason: NAUSEA Vital Signs - 8 hr 07/18/19 07/18/19 07/18/19 07:16 07:52 11:15 Temperature 97.7 F 98.7 F Pulse Rate 74 77 Respiratory 18 18 16 Rate Blood Pressure 155/74 129/59 (mmHg) O2 Sat by Pulse 99 98 Oximetry Oxygen Devices in Use Now: None Appearance: appears comfortable resting in bed, no acute distress Eyes: No Scleral Icterus Ears/Nose/Mouth/Throat: Clear Oropharnyx, Mucous Membranes Moist Neck: NL Appearance and Movements; NL JVP, Trachea Midline Respiratory: Symmetrical Chest Expansion and Respiratory Effort, Clear to Auscultation Cardiovascular: NL Sounds; No Murmurs; No JVD, No Edema Abdominal: NL Sounds; No Tenderness; No Distention Extremities: No Edema, No Clubbing, Cyanosis Skin: No Rash or Ulcers Neurological: Alert and Oriented x 3 Nutrition: Taking PO's Result Diagrams: 07/15/19 05:46 07/13/19 05:41 Microbiology and Other Data: Microbiology 07/10/19 17:25 Legionella Urinary Antigen - Final Urine Negative Legionella Antigen Streptococcus pneumoniae Ag Screen - Final Negative S. pneumo Antigen 07/10/19 09:25 Nasal Screen MRSA (PCR) - Final Nasal Mrsa Not Detected Assess/Plan/Problems-Billing Assessment: Mr. 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 Permanent pacemaker was placed 07/10. - Patient Problems (1) Complete heart block Current Visit: Yes Status: Acute Code(s): I44.2 - ATRIOVENTRICULAR BLOCK, COMPLETE SNOMED Code(s): 27716047 Comment: - POD #[address] Mathew - Negative Lyme - Tele shows AV pacing - Increased amlodipine to decrease chance of further bleeding into hematoma - spoke to Dr. Aparicio today - Roberto can be removed tomorrow. Leave immobilzer in place until follow up with cardiology (2) Pseudomonas urinary tract infection Current Visit: Yes Status: Acute Code(s): N39.0 - URINARY TRACT INFECTION, SITE NOT SPECIFIED; B96.5 - PSEUDOMONAS (MALLEI) CAUSING DISEASES CLASSD [facility] SNOMED Code(s): 224552386 Comment: - Voiding well without Fisher - Would benefit from f/u with Urology after d/c - Will need to complete full course of IV antibiotics in the hospital based on sensitivities (resistant to fluoroquinolones) - Continue Zosyn (day 02/17) (3) BAY (acute kidney injury) Current Visit: Yes Status: Acute Code(s): N17.9 - ACUTE KIDNEY FAILURE, UNSPECIFIED SNOMED Code(s): 82312525 Comment: - Resolved with IVF (4) Severe sepsis Current Visit: Yes Status: Acute Code(s): A41.9 - SEPSIS, UNSPECIFIED ORGANISM; R65.20 - SEVERE SEPSIS WITHOUT SEPTIC SHOCK SNOMED Code(s): 35962029 Comment: - Resolved - Source is UTI - Blood cultures NTD (5) Thrombocytopenia Current Visit: Yes Status: Acute Code(s): D69.6 - THROMBOCYTOPENIA, UNSPECIFIED SNOMED Code(s): 180196154 Comment: - Improving Platelet count is 130 today - In presence of acute sepsis/infection and PM pocket hematoma (now controlled, no further bleeding noted) - Time course not conerning for HIT (6) HTN (hypertension) Current Visit: No Status: Acute Code(s): I10 - ESSENTIAL (PRIMARY) HYPERTENSION SNOMED Code(s): 92803137 Comment: - Normotensive - Continue amlodipine, lisinopril (7) Hyperlipidemia Current Visit: No Status: Acute Code(s): E78.5 - HYPERLIPIDEMIA, UNSPECIFIED SNOMED Code(s): 43346012 Comment: continue lipitor. (8) History of CVA (cerebrovascular accident) Current Visit: Yes Status: Acute Code(s): Z86.73 - PRSNL HX OF TIA (TIA), AND CEREB INFRC W/O RESID DEFICITS SNOMED Code(s): 642470368 Comment: - Utilizes walker - Continue atorvastatin - progressing well - likely be able to return home after full course of antibiotics (9) DVT prophylaxis Current Visit: No Status: Acute Code(s): AXP0907 - SNOMED Code(s): 031881829 Comment: - SCDs only in the setting of hematoma and thrombocytopenia (10) Full code status Current Visit: No Status: Acute Code(s): Z78.9 - OTHER SPECIFIED HEALTH STATUS SNOMED Code(s): 417981215 Comment: Status and Disposition: Inpatient. Anticpate d/c to home when course of IV antibiotics is complete tomorrow
[2019-07-18] MEDS: Atorvastatin* 40 MG TAB PO SCH (21:06)
[2019-07-18] MEDS: Melatonin 3 MG TAB PO PRN (21:07)
[2019-07-19] MEDS: Piperacillin/Tazobac ADVAN(*) 3.375 GM in NS 0.9% 100 ML* 100 ML IVPB SCH (02:38)
[2019-07-19 06:59] LABS: Hematocrit 34 % (42-52); Hemoglobin 11.8 g/dL (14.0-18.0); Mean Corpuscular HGB Conc 35 g/dL (31-36); Mean Corpuscular Hemoglobin 32 pg (27-31); Mean Corpuscular Volume 92 fL (80-94); Mean Platelet Volume 8.5 fL (7.4-10.4); Platelet Count 188 10^3/uL (150-450); Red Blood Count 3.66 10^6 /uL (4.18-5.48); Red Cell Distribution Width 14 % (10-15); White Blood Count 8.8 10^3/uL (3.5-10.8)
[2019-07-19 07:16] LABS: BUN/Creatinine Ratio 20.2 (8-20); Calcium 8.9 mg/dL (8.6-10.3); EGFR Non-African American 82.7 (>60); Potassium 3.9 mmol/L (3.5-5.0)
[2019-07-19 09:35] VITALS: BP 154/62
[2019-07-19] MEDS: amLODIPine TAB* 5 MG PO SCH (09:38)
[2019-07-19] MEDS: Clopidogrel TAB* 75 MG PO SCH (09:38)
[2019-07-19] MEDS: Lisinopril TAB* 10 MG PO SCH (09:38)
--- NOTE | 2019-07-19 11:06 | PN ---
Subjective Date of Service: 07/19/19 Interval History: f/u heart block s/p pacemaker no chest pain or dyspnea Has evidence of resolving hematoma, aspirin held and plavix continued for secondary CVA prevention wilber removed today, wound intact without any drainage or undue erythema and no evidence of infection going home later today Medications Active Medications: Amlodipine Besylate (Norvasc Tab*) 10 mg PO QAM [facility] Last Admin: 07/19/19 09:38 Dose: 10 mg Atorvastatin Calcium (Lipitor*) 40 mg PO BEDTIME [facility] Last Admin: 07/18/19 21:06 Dose: 40 mg Clopidogrel Bisulfate (Plavix Tab*) 75 mg PO QAM [facility] Last Admin: 07/19/19 09:38 Dose: 75 mg Piperacillin Sod/Tazobactam (Sod 3.375 gm/ Sodium Chloride) 100 mls @ 25 mls/ hr IVPB Q8H [facility] Last Admin: 07/19/19 02:38 Dose: 25 mls/hr Lisinopril (Prinivil Tab*) 10 mg PO DAILY [facility] Last Admin: 07/19/19 09:38 Dose: 10 mg Melatonin (Melatonin) 3 mg PO BEDTIME PRN PRN Reason: SLEEP Last Admin: 07/18/19 21:07 Dose: 3 mg Ondansetron HCl (Zofran Inj*) 4 mg IV Q8H PRN PRN Reason: NAUSEA Objective Vital Signs: Temp Pulse Resp BP Pulse Ox 97.9 F 74 18 154/62 98 07/19/19 07:37 07/19/19 07:37 07/19/19 09:26 07/19/19 07:37 07/19/19 07:37 Oxygen Devices in Use Now: None Appearance: nad, pleasant Ears/Nose/Mouth/Throat: Clear Oropharnyx Respiratory: Symmetrical Chest Expansion and Respiratory Effort, Clear to Auscultation Cardiovascular: RRR - no rubs, 2/6 systolic murmur auscultated at right sternal border. Abdominal: NL Sounds; No Tenderness; No Distention Extremities: No Edema Skin: No Rash or Ulcers, - - wound as above, ecchymosis laterally along breast Neurological: NL Muscle Strength and Tone Lines/Tubes/Other Access: Clean, Dry and Intact Peripheral IV Laboratory Results: 07/19/19 06:46 07/19/19 06:46 INR (Anticoag Therapy) 1.29 (0.82-1.09) H 07/10/19 12:45 APTT 19.3 seconds (26.0-38.0) L 07/10/19 12:45 Total Bilirubin 0.60 mg/dL (0.2-1.0) 07/10/19 07:00 AST 23 U/L (13-39) 07/10/19 07:00 ALT 22 U/L (7-52) 07/10/19 07:00 Alkaline Phosphatase 48 U/L (34-104) 07/10/19 07:00 Total Protein 7.1 g/dL (6.4-8.9) 07/10/19 07:00 Albumin 4.0 g/dL (3.2-5.2) 07/10/19 07:00 Globulin 3.1 g/dL (2-4) 07/10/19 07:00 Albumin/Globulin Ratio 1.3 (1-3) 07/10/19 07:00 TSH 1.95 mcIU/mL (0.34-5.60) 07/10/19 07:00 07/10/19 07/10/19 07:00 12:35 Troponin I 0.09 H* 0.32 H* Diagnostic Imaging: CXR 07/11/19 no pneumothorax, lead placement appears stable. Transthoracic Echocardiogram Study Date: 07/10/2019 Sumary: - The patient was in complete heart block at the time of the study. - Left ventricle: The cavity size is normal. Wall thickness is moderately increased. Systolic function is normal. The estimated ejection fraction is 60-65%. - Mitral valve: The findings are consistent with mild stenosis. There is mild regurgitation. The mean diastolic gradient is 4.0 mm Hg. The valve area is 1.9 cm^2. The valve area by pressure half-time is 1.6 cm^2. - Aortic valve: The findings are consistent with mild stenosis. The mean systolic gradient is 9.0 mm Hg. The LVOT to aortic valve VTI ratio is 0.7. The valve area by the velocity-time integral method is 2.10 cm^2. The valve area by the peak velocity method is 2.10 cm^2. - Pulmonary arteries: Systolic pressure can not be accurately estimated. Assessment/Plan Symptomatic complete heart block s/p pacemaker 07/10/2018, had hematoma now resolving ecchymosis, pacemaker wilber removed today and wound healing well without evidence of infection. Plan for discharge later today will arrange cardiology follow up
--- NOTE | 2019-07-19 22:43 | DS ---
DISCHARGE SUMMARY: DATE OF ADMISSION: 07/10/19 DATE OF DISCHARGE: 07/19/19 PROVIDER: Kristy Brennan NP PRIMARY CARE PROVIDER: Dr. Alo Boo. ATTENDING GLUE COOK: Dr. Liz Mathew. ATTENDING PROVIDER: Dr. Last Estevez * (dictated by Kristy Brennan NP). PRIMARY DIAGNOSES: 1. Complete heart block status post permanent pacemaker placement, dual- chamber. 2. Sepsis with urinary tract infection due to pseudomonas. SECONDARY DIAGNOSES: 1. History of cerebrovascular accident in 2017, bilateral carotid disease. 2. Hypertension. 3. Benign prostatic hyperplasia. 4. Chronic left bundle-branch block. 5. Left peripheral vascular disease. STUDIES COMPLETED WHILE IN THE HOSPITAL: He had a chest x-ray, showed low lung volumes, small right basilar infiltrates suggestive of atelectasis, less likely pneumonia. He had a transthoracic echocardiogram on 07/10/19 due to his abnormal EKG and a murmur. The patient with complete heart block at the time of the study. The left ventricle, the cavity size is normal, wall thickness is moderately increased, systolic function is normal, estimated ejection fraction is 60% to 65%. Mitral valve findings consistent with mild stenosis, aortic valve consistent with mild stenosis. When compared to prior echocardiogram from 03/27/18, the ejection fraction was previously 50% to 55%, is new, mitral valve function is stable. Systolic function was normal. He had a repeat chest x-ray on 07/10/19, permanent pacemaker leads in place, no pneumothorax. He had a repeat chest x-ray on 07/11/19, radiologist's impression: No pneumo, pacer leads are in place. DISCHARGE MEDICATIONS: Home medications include: 1. Amlodipine 5 mg p.o. daily. 2. Ambien 1 tablet at bedtime as needed. 3. Clopidogrel 75 mg p.o. daily. 4. Atorvastatin 40 mg p.o. daily. New medication: 1. Lisinopril 10 mg p.o. daily. HISTORY OF PRESENT ILLNESS AND HOSPITAL COURSE: Mr. Kamara is a 79-year-old male with a past medical history significant for CVA in 2017, bilateral carotid disease; hypertension; BPH; chronic left bundle-branch block and peripheral vascular disease, who presented to the emergency room after feeling lightheaded from getting up from a chair and falling to the ground. The patient reports he was in his normal state of health until yesterday afternoon, he reports he was lightheaded after getting up from a chair and fell to the ground. The patient denies striking his head, loss of consciousness, or confusion. The patient felt like he was weak for the rest of the day, mildly nauseous with decreased appetite. By the evening, he began to vomit. The patient tried to drink some Pedialyte; however, he began to vomit as well. At approximately 3 in the morning, given his persistent vomiting, the brought him to the emergency room. The patient denied any fever, chills, night sweats, cough, syncope, chest pain or shortness of breath, orthopnea, or peripheral edema. In the emergency room, the patient was noted to be in a narrow complex bradycardia at a rate of 20s in the third-degree heart block. During the hospitalization, the patient was seen in consultation by Dr. Chavarria and had a permanent pacemaker placed by Dr. Mathew. Throughout the hospitalization, the patient had no further cardiac events. The patient was also found to have underlying sepsis related to pseudomonas UTI. The patient remained in the hospital for IV Zosyn due to the inability to give fluoroquinolones as the sensitivity report was resistant to fluoroquinolone treatment. The patient did receive 7 days of Zosyn during this hospitalization. His urinary symptoms completely resolved. His mentation remained intact. The patient did have a permanent pacemaker placed. He did develop a hematoma status post pacemaker placement. His aspirin was stopped. He did continue on Plavix. On the day of discharge, the patient was seen by Dr. Aparicio from Cardiology, who removed the wilber from his left chest incision. The incision was without redness, was well approximated and healing well. There was no drainage from the incision site. There was ecchymosis noted to his left upper chest. A dry dressing was placed to the left upper chest. The patient did have a shoulder immobilizer in place as a reminder not to raise his arm above his head. REVIEW OF SYSTEMS: The patient denies any fever, chills. Denies any chest pain or shortness of breath. Denies any nausea, vomiting, diarrhea or abdominal pain. He denied any urinary frequency, urgency or pain with urination. He denies any dizziness or weakness. PHYSICAL EXAMINATION: General: At this time, Mr. Kamara is alert and oriented, resting in his hospital bed. He is in no acute distress. Vital Signs : Temperature was 97.9, heart rate 74, respirations are 18, O2 saturation 98%, blood pressure was 154/62. HEENT: Head is atraumatic, normocephalic. Eyes: EOMs are intact. Sclerae are anicteric and not pale. Oral mucosa appeared to be moist. Neck is supple. Lungs are clear to auscultation bilaterally. No wheezes, rales or rhonchi. Cardiac: S1, S2. Regular rate and rhythm. No murmurs, rubs or gallops. Abdomen is soft and nontender. Bowel sounds are present x4. Neurologic: He is awake, alert, oriented x3. Speech is clear. Thought process is intact. There are no gross focal deficits. At this time, Mr. Kamara is stable for discharge home. DISCHARGE PLAN: Mr. Kamara will be discharged home. 1. Complete heart block. The patient did have complete heart block on admission to the hospital. He did have a permanent pacemaker placed by Dr. Mathew. He should follow up with Dr. Mathew in her office. He should call the office for an appointment. 2. Sepsis related to pseudomonas urinary tract infection. The patient did complete a full course of 7 days of Zosyn for complete treatment of pseudomonas urinary tract infection. The patient has no resistible urinary frequency, burning with urination or pain with urination. The patient should follow up with Dr. Servin, his urologist for further recommendations in regards to his benign prostatic hyperplasia and pseudomonas urinary tract infection. 3. History of cerebrovascular accident. The patient should continue on Plavix as previously prescribed. His aspirin was stopped during this hospitalization due to large hematoma to his left upper chest after pacemaker placement. He should resume this based on the direction of his primary care provider. The patient should also continue on atorvastatin 40 mg p.o. daily. 4. Hypertension. He should continue on lisinopril 10 mg p.o. daily, which was started during this hospitalization as well as amlodipine 5 mg p.o. daily. 5. Hyperlipidemia. The patient should continue atorvastatin as previously prescribed. The patient was instructed to return to the emergency room for any weakness, fever, chills, chest pain or shortness of breath. The patient and his verbalized understanding. The patient was also instructed not to lift his arm above his head for 4 weeks. He is not to lift anything greater than 5 pounds until followup with Dr. Mathew from Cardiology for further recommendations. The patient does currently have a shoulder immobilizer in place. He was instructed to leave this in place as long as possible, likely until follow up with Dr. Mathew. The patient was advised if he is able to shower, he can wash the area with mild soap, and pat the area dry. Should the patient develop any redness or drainage from the incision site, he should contact Dr. Mathew for further recommendations. CONDITION ON DISCHARGE: Stable. DISPOSITION ON DISCHARGE: Home. I have discussed this with my attending Dr. Last Estevez, he is in agreement with my plan. KRISTY BRENNAN, RODOLFO [id number]/[facility] #: [id number]
== END 2019-07-19 12:15 | disposition home or self-care (01) | DRG 242 ==
LOC: ED 05:22 → ICU 07:46 → MEDTELE 07-12 14:16
PROVIDERS: ADMIT Internal Medicine; ATTEND Internal Medicine
PROC: 02H63JZ Insertion of Pacemaker Lead into Right Atrium, Percutaneous Approach (ICD-10-PCS; 2019-07-10)
PROC: 02HK3JZ Insertion of Pacemaker Lead into Right Ventricle, Percutaneous Approach (ICD-10-PCS; 2019-07-10)
PROC: 0JH606Z Insertion of Pacemaker, Dual Chamber into Chest Subcutaneous Tissue and Fascia, Open Approach (ICD-10-PCS; principal; 2019-07-10 09:30)
PROC: 4B02XSZ Measurement of Cardiac Pacemaker, External Approach (ICD-10-PCS; 2019-07-11)
DX: I44.2 Atrioventricular block, complete (principal); A41.52 Sepsis due to Pseudomonas; R65.20 Severe sepsis without septic shock; N39.0 Urinary tract infection, site not specified; N17.9 Acute kidney failure, unspecified; E87.2 Acidosis; L76.32 Postprocedural hematoma of skin and subcutaneous tissue following other procedure; N40.0 Benign prostatic hyperplasia without lower urinary tract symptoms; I44.7 Left bundle-branch block, unspecified; I73.9 Peripheral vascular disease, unspecified; E78.5 Hyperlipidemia, unspecified; R79.89 Other specified abnormal findings of blood chemistry; E66.8 Other obesity; D69.6 Thrombocytopenia, unspecified; Y83.8 Other surgical procedures as the cause of abnormal reaction of the patient, or of later complication, without mention of misadventure at the time of the procedure; Y92.239 Unspecified place in hospital as the place of occurrence of the external cause; E78.00 Pure hypercholesterolemia, unspecified; J45.909 Unspecified asthma, uncomplicated; M17.11 Unilateral primary osteoarthritis, right knee; I12.9 Hypertensive chronic kidney disease with stage 1 through stage 4 chronic kidney disease, or unspecified chronic kidney disease; N18.9 Chronic kidney disease, unspecified; I65.23 Occlusion and stenosis of bilateral carotid arteries; Z87.442 Personal history of urinary calculi; Z68.32 Body mass index [BMI] 32.0-32.9, adult; Z86.73 Personal history of transient ischemic attack (TIA), and cerebral infarction without residual deficits; Z79.02 Long term (current) use of antithrombotics/antiplatelets; Z79.899 Other long term (current) drug therapy
CPT/HCPCS: 33208; 36415; 71045; 71046; 80048; 80053; 81003; 81015; 83605; 83735; 84443; 84484; 85025; 85027; 85610; 85652; 85730; 86140; 86618; 87040; 87077; 87086; 87186; 87641; 87899; 93005; 93306; 99156; 99157; 99284; A9270-GY; C1785; C1892; C1898; C8929; G8978-GP-CK; G8979-GP-CI; G8987-GO-CK; G8988-GO-CI; J0690; J0696; J1630; J1940; J2250; J2405; J2543; J3010

== ENCOUNTER 2023-11-02 08:01 | Observation (INO) ==
[~2023-11-02 08:01] MED LIST changes: -Buffered Lidocaine 0.9% SYRIN* 5 ML/SYR SYRINGE INTRADERM ONE; -Dexamethasone IV* 4 MG/ML 1 ML (4 MG) IV SLOW PU ONE; -Famotidine IV* 10 MG/ML 2 ML (20 mg) IV ONE; +Lactated Ringers 1000 ml BAG 1,000 ML IV SCH; +Naloxone 0.4 mg VIAL 0.4 mg/ml 1 ml VIAL IV PRN; +Ondansetron 4 mg VIAL 2 MG/ML 2 ml VIAL IV PRN; +fentaNYL 100 mcg/2 ml 50 MCG/ML VIAL IV PRN
[2023-11-02] MEDS ORDERED: fentaNYL 100 mcg/2 ml 50 MCG/ML VIAL ONE (08:41)
[2023-11-02] MEDS ORDERED: ceFAZolin 2 GM PREMIX 2 GM/50 ML BAG ONE (09:06)
[2023-11-02 09:39] LABS: Calcium 8.8 mg/dL (8.6-10.3); Creatinine, Serum 1.02 mg/dL (0.67-1.17); Potassium 4.2 mmol/L (3.5-5.0); eGFR CKD-EPI 73.4 (>60)
[2023-11-02] MEDS ORDERED: ceFAZolin SYR FLUSH 1 GM/10 ML for pocket flush (cardiology) FLUSH ONE (10:00)
[2023-11-02] MEDS ORDERED: Iohexol 300 (CONTRAST) 10 ML SDV ONE (10:16)
[2023-11-02] MEDS ORDERED: Lidocaine 1% VIAL 10 MG/ML 30 ML VIAL ONE (10:16)
[2023-11-02] MEDS: ceFAZolin 2 GM in NS PREMIX 2 GM/100 ML BAG IVPB ONE (10:30)
[2023-11-02] MEDS ORDERED: Propofol 10 MG/ML 20 ML BTL ONE (12:00)
[2023-11-02] MEDS: NS 0.9% 1000 ml BAG 1,000 ML IV SCH (13:11)
[2023-11-02] MEDS: ceFAZolin 1 GM in Dextrose 1 GM/50 ML BAG IVPB SCH (18:26)
[2023-11-03 10:18] VITALS: BP 128/61
== END 2023-11-03 12:30 | disposition home or self-care (01) ==
LOC: MEDTELE 08:01 → OR 08:01
PROVIDERS: ADMIT Specialist; ATTEND Specialist

== ENCOUNTER 2024-06-14 12:35 | Inpatient (IN) ==
[2024-06-14 13:22] LABS: ABS Basophils 0.1 10^3/uL (0.0-0.1); ABS Lymphocytes 0.6 10^3/uL (1.0-4.8); ABS Monocytes 0.1 10^3/uL (0.0-1.1); ABS Neutrophils 3.7 10^3/uL (1.5-7.6); Eosinophil % 0.1 %; Hematocrit 24.9 % (38-53); Hemoglobin 8.5 g/dL (13.2-16.3); Lymphocyte % 14.1 %; Mean Corpuscular Hemoglobin 32.4 pg (27-33); Mean Corpuscular Hgb Conc 34.1 g/dL (31-36); Mean Corpuscular Volume 95.1 fL (80-97); Mean Platelet Volume 7.8 fL (7.5-11.2); Nucleated Red Blood Cells % 0.1 %/100WBC (0.0-0.8); Platelet Count 149 10^3/uL (150-450); Red Blood Count 2.62 10^6/uL (4.06-5.63); Red Cell Distribution Width 17.3 % (12-17); White Blood Count 4.4 10^3/uL (3.6-10.2)
[2024-06-14 13:41] LABS: Albumin 3.4 g/dL (3.2-5.2); Albumin/Globulin Ratio 0.6 (1-3); Calcium 8.7 mg/dL (8.6-10.3); Creatinine, Serum 1.12 mg/dL (0.67-1.17); Globulin 5.8 g/dL (2-4); Potassium 4.2 mmol/L (3.5-5.0); Total Bilirubin 0.7 mg/dL (0.2-1.0); Total Protein 9.2 g/dL (6.4-8.9); eGFR CKD-EPI 65.2 (>60)
[2024-06-14] MEDS: Acetaminophen IV 1 GM/100ML 1,000 MG/100 ML BAG IV ONE (14:51)
[2024-06-14 15:01] LABS: High Sensitivity Troponin 1 Hr 72 pg/mL (<20)
[2024-06-14] MEDS: Iohexol 350 (CONTRAST) 500 ML MDV IV ONE (15:07)
[2024-06-14] MEDS: cefTRIAXone 1 gm/50 mL D5W 1 GM/50 ML BAG IV ONE (16:41)
[2024-06-14] MEDS: Azithromycin 500 mg/250 ml NS 500 MG/250 ML BAG IVPB ONE (17:29)
[2024-06-14] MEDS ORDERED: PSEUDOEPHEDRINE PO PRN (18:07)
[2024-06-14] MEDS ORDERED: GUAIFENESIN PO PRN (18:07)
[2024-06-14 20:12] LABS: INR 1.52 (0.85-1.14)
[2024-06-14] MEDS: Remdesivir 100 mg Vial 200 MG in NS 0.9% 250 ml 210 ML IV ONE (20:31)
[2024-06-14] MEDS: Enoxaparin 40 MG/0.4 ML SYR SUBCUT SCH (20:36)
[2024-06-14 20:40] LABS: ALT 14 U/L (7-52); AST 19 U/L (13-39); Albumin 3.5 g/dL (3.2-5.2); Albumin/Globulin Ratio 0.6 (1-3); Alkaline Phosphatase 44 U/L (35-149); Anion Gap 7 mmol/L (2-16); Blood Urea Nitrogen 29 mg/dL (6-24); CO2 Carbon Dioxide 24 mmol/L (22-32); Calcium 8.6 mg/dL (8.6-10.3); Chloride 103 mmol/L (101-111); Creatine Kinase 307 U/L (10-223); Creatinine, Serum 1.12 mg/dL (0.67-1.17); Globulin 5.8 g/dL (2-4); Glucose 105 mg/dL (70-100); Potassium 4.1 mmol/L (3.5-5.0); Sodium 134 mmol/L (135-145); Total Bilirubin 0.5 mg/dL (0.2-1.0); Total Protein 9.3 g/dL (6.4-8.9); eGFR CKD-EPI 65.2 (>60)
[2024-06-14 20:53] LABS: % Iron Saturation 8 % (15-55); .Transferrin 171 mg/dL (203-362); Iron < 20 ug/dL (50-212); Magnesium 1.9 mg/dL (1.9-2.7); Total Iron Binding Capacity 239 mcg/dL (250-450); Unsaturated Iron Binding 219 ug/dL
[2024-06-14 21:21] LABS: TSH Ultra Thyroid Stim Horm 0.58 mcIU/mL (0.34-5.60)
[2024-06-14 21:28] LABS: Ferritin 139.6 ng/mL (24-336)
[2024-06-14 21:32] LABS: Folate > 20.00 ng/mL (5.90-24.80)
[2024-06-14 21:33] LABS: Vitamin B12 272 pg/mL (180-914)
[2024-06-14 21:53] LABS: Osmolality Serum 298 mOsm/kg (275-295)
[2024-06-14] MEDS: Lactated Ringers 1000 ml BAG 1,000 ML IV SCH (22:17)
[2024-06-15 06:45] LABS: INR 1.63 (0.85-1.14)
[2024-06-15 06:54] LABS: Hematocrit 24.5 % (38-53); Hemoglobin 8.3 g/dL (13.2-16.3); Mean Corpuscular Hemoglobin 32.5 pg (27-33); Mean Corpuscular Hgb Conc 34.1 g/dL (31-36); Mean Corpuscular Volume 95.3 fL (80-97); Mean Platelet Volume 7.9 fL (7.5-11.2); Platelet Count 150 10^3/uL (150-450); Red Blood Count 2.57 10^6/uL (4.06-5.63); Red Cell Distribution Width 17.9 % (12-17); White Blood Count 4.8 10^3/uL (3.6-10.2)
[2024-06-15 06:58] LABS: ALT 15 U/L (7-52); Albumin 3.1 g/dL (3.2-5.2); Albumin/Globulin Ratio 0.6 (1-3); Alkaline Phosphatase 37 U/L (35-149); Anion Gap 8 mmol/L (2-16); Blood Urea Nitrogen 32 mg/dL (6-24); CO2 Carbon Dioxide 21 mmol/L (22-32); Calcium 8.2 mg/dL (8.6-10.3); Chloride 108 mmol/L (101-111); Creatinine, Serum 1.22 mg/dL (0.67-1.17); Globulin 5.4 g/dL (2-4); Glucose 94 mg/dL (70-100); Sodium 137 mmol/L (135-145); Total Bilirubin 0.4 mg/dL (0.2-1.0); Total Protein 8.5 g/dL (6.4-8.9); eGFR CKD-EPI 58.8 (>60)
[2024-06-15 09:00] LABS: ABS Basophils 0.1 10^3/uL (0.0-0.1); ABS Neutrophils 3.7 10^3/uL (1.5-7.6); Anisocytosis 1+; Eosinophil % 0.3 %; Lymphocyte % 20.7 %; Nucleated Red Blood Cells % 0.1 %/100WBC (0.0-0.8)
[2024-06-15] MEDS ORDERED: Remdesivir 100 mg Vial 100 MG in NS 0.9% 250 ml 230 ML IV SCH (09:00)
[2024-06-15 09:19] LABS: Magnesium 1.8 mg/dL (1.9-2.7)
[2024-06-15] MEDS: Azithromycin 500 mg/250 ml NS 500 MG/250 ML BAG IVPB SCH (15:13)
[2024-06-15] MEDS: cefTRIAXone 1 gm/50 mL D5W 1 GM/50 ML BAG IV SCH (16:31)
[2024-06-15] MEDS: Remdesivir 100 mg Vial 100 MG in NS 0.9% 250 ml 230 ML IV SCH (21:11)
[2024-06-16 06:07] LABS: ABS Eosinophils 0.1 10^3/uL (0.0-0.5); ABS Lymphocytes 0.9 10^3/uL (1.0-4.8); ABS Monocytes 0.1 10^3/uL (0.0-1.1); ABS Neutrophils 3.2 10^3/uL (1.5-7.6); ABS Nucleated RBC 0.01 10^3/ul; Eosinophil % 1.5 %; Hematocrit 23.7 % (38-53); Lymphocyte % 21.5 %; Mean Corpuscular Hemoglobin 32.2 pg (27-33); Mean Corpuscular Hgb Conc 33.9 g/dL (31-36); Mean Corpuscular Volume 95.1 fL (80-97); Mean Platelet Volume 8.1 fL (7.5-11.2); Nucleated Red Blood Cells % 0.2 %/100WBC (0.0-0.8); Platelet Count 148 10^3/uL (150-450); Red Blood Count 2.49 10^6/uL (4.06-5.63); Red Cell Distribution Width 17.1 % (12-17); White Blood Count 4.2 10^3/uL (3.6-10.2)
[2024-06-16 06:21] LABS: INR 1.71 (0.85-1.14)
[2024-06-16 06:59] LABS: Calcium 8.2 mg/dL (8.6-10.3); Creatinine, Serum 1.09 mg/dL (0.67-1.17); Magnesium 1.8 mg/dL (1.9-2.7); Potassium 3.7 mmol/L (3.5-5.0); eGFR CKD-EPI 67.3 (>60)
[2024-06-16] MEDS: Potassium EFFERVES 25 meq TAB PO SCH (09:15)
[2024-06-16] MEDS: Magnesium Sulfate IV 1GM/100ML 1 GM/100 ML BAG IV ONE (09:17)
[2024-06-16] MEDS: cefTRIAXone 1 gm/50 mL D5W 1 GM/50 ML BAG IV SCH (11:43)
[2024-06-16] MEDS: Azithromycin 500 mg/250 ml NS 500 MG/250 ML BAG IVPB SCH (12:31)
[2024-06-16] MEDS: Ferric Gluconate IV 125 MG in NS 0.9% 100 ml BAG 100 ML IVPB ONE (13:47)
[2024-06-16] MEDS ORDERED: cefTRIAXone 1 gm/50 mL D5W 1 GM/50 ML BAG IV SCH (15:00)
[2024-06-17 07:02] LABS: Hematocrit 23.3 % (38-53); Hemoglobin 8.1 g/dL (13.2-16.3); Mean Corpuscular Hemoglobin 33.4 pg (27-33); Mean Corpuscular Hgb Conc 34.9 g/dL (31-36); Mean Corpuscular Volume 95.8 fL (80-97); Platelet Count 158 10^3/uL (150-450); Red Blood Count 2.44 10^6/uL (4.06-5.63); Red Cell Distribution Width 17.4 % (12-17); White Blood Count 3.8 10^3/uL (3.6-10.2)
[2024-06-17 07:03] LABS: INR 1.71 (0.85-1.14)
[2024-06-17 08:13] LABS: Calcium 8.1 mg/dL (8.6-10.3); Creatinine, Serum 0.93 mg/dL (0.67-1.17); Magnesium 1.8 mg/dL (1.9-2.7); Potassium 4.1 mmol/L (3.5-5.0); eGFR CKD-EPI 81.5 (>60)
[2024-06-17] MEDS: Magnesium Sulfate 2 gm BAG 2 GM/50 ML BAG IVPB ONE (09:22)
[2024-06-17 14:17] VITALS: BP 128/67
== END 2024-06-17 14:36 | disposition home or self-care (01) | DRG 177 ==
LOC: ED 12:35 → EDHOLD 12:35 → MEDTELE 17:59 → UNDODISIN 06-17 11:44
PROVIDERS: ADMIT Student in an Organized Health Care Education/Training Program; ATTEND Student in an Organized Health Care Education/Training Program